=== PATIENT | female | born 1995 | race Caucasian/White ===

== ENCOUNTER → 2020-01-24 08:15 | Outpatient (CLI) | payer OTHER, SELFPAY ==
[2020-01-24 09:43] LABS: HCG,Quantitative 32946 mIU/ml (0-5.42)
== END ==
PROVIDERS: Visit Provider Nurse Practitioner Obstetrics & Gynecology
DX: Z34.90 Encounter for supervision of normal pregnancy, unspecified, unspecified trimester (principal)
CPT/HCPCS: 36415; 84702

== ENCOUNTER → 2020-02-04 15:30 | Outpatient (CLI) | payer OTHER, SELFPAY ==
[2020-02-04 15:56] LABS: Basophils # 0.1 K/mm3 (0-0.2); Basophils % 0.7 % (0.1-2.0); Eosinophils # 0.1 K/mm3 (0.0-0.4); Eosinophils % 1.9 % (0.1-12.0); Hematocrit 39.8 % (37.0-47.0); Hemoglobin 13.1 g/dL (12.2-16.2); Lymphocytes # 2.1 K/mm3 (0.7-4.5); Lymphocytes % 31.5 % (10-50); Mean Corpuscular HGB Conc 32.8 g/dL (31.8-35.4); Mean Corpuscular Hemoglobin 29.2 pg (27.0-31.2); Mean Platelet Volume 8.2 fl (7.4-10.4); Monocytes # 0.4 K/mm3 (0.1-1.0); Monocytes % 6.4 % (1.7-9.3); Neutrophils # 3.9 K/mm3 (1.8-7.8); Neutrophils % 59.5 % (37.0-80.0); Platelet Count 245 K/mm3 (142-424); Red Blood Count 4.48 M/mm3 (4.20-5.40); Red Cell Distribution Width 14.9 % (11.5-17.5); White Blood Count 6.6 K/mm3 (4.8-10.8)
[2020-02-06 04:52] LABS: HIV Screen 4th Generation wRfx Non Reactive (Non Reactive)
[2020-02-06 12:56] LABS: Hepatitis B Surface Antigen Negative (Negative); Hepatitis C Antibody <0.1 s/co ratio (0.0-0.9); Rapid Plasma Reagin Ab Titer Non Reactive (NonRea<1:1)
== END ==
PROVIDERS: Visit Provider Nurse Practitioner Obstetrics & Gynecology
DX: Z34.90 Encounter for supervision of normal pregnancy, unspecified, unspecified trimester (principal)
CPT/HCPCS: 36415; 85025; 86592; 86703; 86762; 86850; 87340; 87380; G0432

== ENCOUNTER → 2020-02-13 13:43 | Outpatient (CLI) | payer OTHER, SELFPAY ==
--- NOTE | 2020-02-13 13:52 | US_ITS ---
PROCEDURE: US OB TRANSVAGINAL CLINICAL INDICATION: for dates Early Ob ultrasound COMPARISON: PTV US PELVIS-TRANSVAGINAL ONLY from 07/25/2017 FINDINGS: An intrauterine gestational sac is present with a pole with a crown-rump length of 1.9cm correlating to gestational age of 8weeks 4days. heart tones are present with an FHR of 170bpm. Yolk sac is noted. Unremarkable adnexa IMPRESSION: Live IUP at 8 weeks 4 days Estimated due date by Ultrasound is 09/20/2020 Dictated by: Anup Key MD 02/13/2020 17:09 Electronically signed by Anup Key MD in [place] 02/13/2020 17:09
== END ==
PROVIDERS: PCP Family Medicine; Visit Provider Nurse Practitioner Obstetrics & Gynecology
DX: Z34.90 Encounter for supervision of normal pregnancy, unspecified, unspecified trimester (principal)
CPT/HCPCS: 76817

== ENCOUNTER → 2020-05-06 14:22 | Outpatient (CLI) | payer OTHER, SELFPAY ==
--- NOTE | 2020-05-06 14:25 | US_ITS ---
PROCEDURE: US OB /MATERNAL DETAIL CLINICAL INDICATION: 20 week gestation Anatomy exam COMPARISON: US US OB TRANSVAGINAL from 02/13/2020 FINDINGS: There is a single live fetus which is in variable presentation and ended up on the last images to be in breech presentation.. The cervix is closed and measures 3.9 cm transabdominal. The placenta is anterior and low lying. No definite previa. Complete survey performed and was unremarkable on the submitted images as in PACS. No discrete anomalies identified on survey imaging by technologist. Active fetus. Three-vessel cord with satisfactory umbilical cord insertion. 4- chamber heart noted. Survey of brain & ventricles Unremarkable. Face and neck survey unremarkable. Diaphragm and chest views unremarkable. Abdomen: Both kidneys noted. Minimal pyelectasisof the renal collecting system at 4 and 6 mm.. Stomach noted and satisfactory. Spine: Survey of the spine satisfactory with no anomalies identified nor imaged. Both arms and legs noted. Amniotic Fluid: Adequate. Maternal adnexa: No significant findings. Measurements: Average ultrasound age 20weeks 4days. Gestational Age 20weeks 3days Estimated due date by ultrasound age 1209/19/2020. Estimated weight 377g BPD = 20weeks 4days OFD = 20weeks 5days HC = 19weeks 6days AC = 21weeks 2days FL = 20weeks 4days Growth Percentile= 65Percent% Heart Rate = 138bpm Cerebellum = 20weeks Humerus = 20weeks 6days HC/AC is 1.07 CI is 0.78 FL/BPD is 0.7 FL/AC is 0.21 IMPRESSION: Live IUP with an average ultrasound age 20 weeks and 4 days. There is mild renal pyelectasis. Consider follow-up to confirm stability or resolution. Dictated b Anup Key MD 05/07/2020 11:03 Anup Key MD in [place] 05/07/2020 11:03
== END ==
PROVIDERS: PCP Family Medicine; Visit Provider Nurse Practitioner Obstetrics & Gynecology
DX: Z3A.20 20 weeks gestation of pregnancy (principal)
CPT/HCPCS: 76811

== ENCOUNTER → 2020-06-11 09:20 | Outpatient (CLI) | payer OTHER, SELFPAY ==
[2020-06-11 11:35] LABS: Fetal Fibronectin (Rapid) Negative (Negative)
== END ==
PROVIDERS: Visit Provider Nurse Practitioner Obstetrics & Gynecology
DX: Z34.90 Encounter for supervision of normal pregnancy, unspecified, unspecified trimester (principal)
CPT/HCPCS: 82731

== ENCOUNTER 2020-06-16 07:35 | Outpatient (CLI) | payer OTHER, SELFPAY ==
[2020-06-16 09:12] LABS: Glucose,Fasting 91 mg/dl (74-100)
[2020-06-16 10:31] LABS: Glucose 1 Hour 98 mg/dL (74-100)
[2020-06-16 10:55] VITALS: BP 109/62; PULSE 102; RESP 20; TEMP 36.3; O2SAT 100
== END 2020-06-16 11:11 | disposition home or self-care (01) ==
LOC: LAB 08:11 → INF 10:44
PROVIDERS: Visit Provider Nurse Practitioner Obstetrics & Gynecology
DX: O26.899 Other specified pregnancy related conditions, unspecified trimester (principal); Z34.90 Encounter for supervision of normal pregnancy, unspecified, unspecified trimester; Z67.91 Unspecified blood type, Rh negative
CPT/HCPCS: 36415; 82951; 86850; 96372; J2790

== ENCOUNTER 2020-06-26 09:45 | Outpatient (CLI) | payer OTHER, SELFPAY ==
[2020-06-26 10:00] VITALS: BMI 32.5
[2020-06-26 10:19] VITALS: BP 103/63; PULSE 118; RESP 18; TEMP 36.3; O2SAT 100; BMI 32.5
[2020-06-26 11:31] LABS: Microscopic, Urine URINE MICROSCOPIC (MICROSCOPIC)
[2020-06-26 11:43] LABS: Appearance,Urine SL CLOUDY (Clear); Blood, Urine Negative (Negative); Color,Urine DK YELLOW (Yellow); Glucose,Urine (UA) Negative (Negative); Ketones,Urine 3+ (Negative); Leukocyte Esterase,Urine Negative (Negative); Nitrate,Urine Negative (Negative); Protein,Urine 2+ (Negative); Specific Gravity, Urine >= 1.030 (1.005-1.030)
[2020-06-26 11:46] LABS: Bilirubin,Urine Negative (Negative)
[2020-06-26 11:49] LABS: Benzodiazepines Screen,Urine Negative ng/ml (<200)
[2020-06-26 11:50] LABS: Amphetamine/Metha Screen,Urine Negative ng/ml (<1000)
[2020-06-26 11:51] LABS: Barbiturates Screen,Urine Negative ng/ml (<200); Cannabinoid Screen,Urine Negative ng/ml (<50)
[2020-06-26 11:52] LABS: Cocaine Screen,Urine Negative ng/ml (<300); Methadone Screen,Urine Negative ng/ml (<300)
[2020-06-26 11:53] LABS: Opiate Screen,Urine Negative ng/ml (<300)
[2020-06-26 11:54] LABS: Phencyclidine Screen,Urine Negative ng/ml (<25)
[2020-06-26 12:09] LABS: Bacteria,Urine 1+ /lpf; RBC,Urine Occasional #/hpf (0-3)
[2020-06-26 12:10] LABS: Calcium Oxalate Crystals,Urine 1+ /lpf
== END 2020-06-26 12:54 | disposition home or self-care (01) ==
LOC: OBOUT 09:49 → OB 09:50
PROVIDERS: PCP Family Medicine; Visit Provider Nurse Practitioner Obstetrics & Gynecology
DX: O47.02 False labor before 37 completed weeks of gestation, second trimester (principal); Z3A.27 27 weeks gestation of pregnancy
CPT/HCPCS: 59025; 80305; 81001; 96365; G0463; J2405

== ENCOUNTER 2020-08-09 19:54 | Observation (INO) | payer OTHER, SELFPAY ==
[2020-08-09 18:32] VITALS: BP 104/72; PULSE 97; RESP 18; TEMP 36.9; O2SAT 98; BMI 33.5
[2020-08-09 18:39] LABS: Microscopic, Urine URINE MICROSCOPIC (MICROSCOPIC)
[2020-08-09 19:19] LABS: Appearance,Urine CLEAR (Clear); Bilirubin,Urine Negative (Negative); Blood, Urine Negative (Negative); Color,Urine YELLOW (Yellow); Glucose,Urine (UA) Negative (Negative); Ketones,Urine Negative (Negative); Leukocyte Esterase,Urine 1+ (Negative); Nitrate,Urine Negative (Negative); Protein,Urine Negative (Negative); Specific Gravity, Urine 1.015 (1.005-1.030); Urobilinogen,Urine 0.2 EU/dl (0.2)
[2020-08-09 19:33] LABS: Barbiturates Screen,Urine Negative ng/ml (<200)
[2020-08-09 19:34] LABS: Benzodiazepines Screen,Urine Negative ng/ml (<200)
[2020-08-09 19:35] LABS: Cannabinoid Screen,Urine Negative ng/ml (<50)
[2020-08-09 19:36] LABS: Cocaine Screen,Urine Negative ng/ml (<300); Methadone Screen,Urine Negative ng/ml (<300)
[2020-08-09 19:37] LABS: Opiate Screen,Urine Negative ng/ml (<300); Phencyclidine Screen,Urine Negative ng/ml (<25)
[2020-08-09 19:40] LABS: Amphetamine/Metha Screen,Urine Negative ng/ml (<1000)
[2020-08-09 20:42] LABS: Basophils % 0.2 % (0.1-2.0); Eosinophils # 0.2 K/mm3 (0.0-0.4); Hematocrit 39.5 % (37.0-47.0); Hemoglobin 13.4 g/dL (12.2-16.2); Lymphocytes # 2.8 K/mm3 (0.7-4.5); Lymphocytes % 25.8 % (10-50); Mean Corpuscular HGB Conc 33.9 g/dL (31.8-35.4); Mean Corpuscular Volume 91.5 fl (81-99); Monocytes # 0.5 K/mm3 (0.1-1.0); Monocytes % 4.6 % (1.7-9.3); Neutrophils # 7.2 K/mm3 (1.8-7.8); Neutrophils % 67.4 % (37.0-80.0); Platelet Count 278 K/mm3 (142-424); Red Blood Count 4.32 M/mm3 (4.20-5.40); Red Cell Distribution Width 15.4 % (11.5-17.5); White Blood Count 10.7 K/mm3 (4.8-10.8)
[2020-08-09 21:05] LABS: Chloride 104 mmol/L (98-107); Sodium 134 mmol/L (136-145)
[2020-08-09 21:06] LABS: Potassium 4.2 mmoL/L (3.5-5.1)
[2020-08-09 21:08] LABS: Blood Urea Nitrogen 5 mg/dl (7-17); Creatinine Clearance Estimated 194 mL/min (50-200); Estimated Glomerular Filt Rate 122 ml/min (>60); GFR (African American) 147 ML/MIN (>60)
[2020-08-09 21:09] LABS: Anion Gap 10.2 mEq/L (5-15); Calcium 9.4 mg/dl (8.4-10.2); Carbon Dioxide 24 mmol/L (22.0-30.0); Glucose 79 mg/dl (74-100)
[2020-08-09 21:26] LABS: Coronavirus 19 IgG Antibody Negative (Negative); Coronavirus 19 IgM Antibody Negative (Negative)
[2020-08-10] VITALS: BP 107/65; PULSE 94; RESP 18; TEMP 36.6; O2SAT 96
[2020-08-10 04:00] VITALS: BP 110/66; PULSE 89; RESP 18; TEMP 36.7; O2SAT 97
--- NOTE | 2020-08-10 07:00 | US_ITS ---
PROCEDURE: US OB FOLLOW UP CLINICAL INDICATION: Low lying placenta, patient experiencing vag bleed COMPARISON: US US OB /MATERNAL DETAIL from 05/06/2020 FINDINGS: There is a single live fetus which is in cephalic presentation. Cervix is closed and measures 38 mm. The placenta is anterior and grade 1. No evidence of previa or abruption. Average ultrasound age is 35 weeks 1 day with an estimated weight of 2515 g which is 64th percentile. BPD 36 weeks 0 days, OFD 34 weeks 0 days, HC 34 weeks 4 days, AC 34 weeks 4 days, FL 35 weeks 1 day. All parameters correlate. SOTO is normal at 13 cm. IMPRESSION: Live IUP at 35 weeks 1 day with an estimated weight of 2515 g which is 64th percentile. Normal SOTO Anterior grade 1 placenta. No previa or abruption. Dictated by: Anup Key MD 08/10/2020 19:38 Anup Key MD in [place] 08/10/2020 19:38
[2020-08-10 08:03] VITALS: BP 101/64; PULSE 88; RESP 18; TEMP 36.8; O2SAT 96
--- NOTE | 2020-08-10 08:50 | HMH.OBAPHP ---
OB - H&P: HPI Antepartum - History of Present Illness Chief complaint: Pelvic pain, vaginal bleeding Comments: She is a 24-year-old 1 para 0 at 34 weeks gestational age. She was having low abdominal pain, back pain and pressure. She came into labor and delivery. She was examined and at that time had some vaginal bleeding. She subsequently had an approximately baseball sized area of bleeding on a check. She now just has a small amount of blood when she wipes. She still continues to have some low back pain as well as some lower abdominal pain. Her cervix was long and closed. We are awaiting an ultrasound this morning. She has received 1 dose of Celestone and will repeat this today. She is not having any contractions on the monitor. She has a reactive nonstress test. - History of Present Criteria for establishing EDC:: LMP confirmed by 1st trimester US care: good care Ultrasounds: normal 1st trimester US, normal mid trimester US Medical complications: none H History I have reviewed the patient's past medical history: Yes Medical History: Denies:: Anxiety, Depression, Migraine, Seizures *Have you ever received a pneumonia vaccine?: No *Have you received a flu vaccine this season?: No Other Medical History: Reports: Hypothyroidism Laterality Cases: Bilateral: Tonsillectomy Other Surgeries: Yes: Appendectomy, Cholecystectomy, Thyroidectomy. No: Amputation: No Fractures: No - *Social History Smoking Status: Never smoker Alcohol Intake: never Alcohol Intake Frequency:: other Substance Use Type: denies use *Occupational Status:: employed *Travel in the last 8 weeks: None - Psychiatric History Pschychiatric History:: Denies:: Anxiety, Depression Family Hx:: Cancer, Diabetes, Hypertension, Thyroid Disorder, Asthma Para: 0 Review of Systems - Review of Systems Review of systems:: pertinent systems reviewed and negative unless documented below Meds Home Medications Medication Instructions Recorded Confirmed Type prenat.vits,jenni,[id number] 1 tab PO DAILY 02/04/20 08/09/20 History Ferrous Sulfate 325 mg PO DAILY 06/16/20 08/09/20 History ondansetron 4 mg disintegrating 4 mg PO Q6H PRN #30 tab 06/30/20 08/09/20 Rx tablet Famotidine [Acid Rubber Down] 20 mg PO DAILY 11/08/20 11/08/20 History Levothyroxine Sodium [Tirosint] 150 mcg PO DAILY 08/09/20 08/09/20 History Allergies Allergy/AdvReac Type Severity Reaction Status Date / Time No Known Allergies Allergy Verified 07/28/20 09:18 OB - H&P: Exam - Physical Exam Vital signs: Temp Pulse Resp BP Pulse Ox 98.0 F 89 18 110/66 97 08/10/20 04:00 08/10/20 04:00 08/10/20 04:00 08/10/20 04:00 08/10/20 04:00 - Constitutional no acute distress - Routine HEENT Exam Head: Present: normocephalic Eye: Present: EOMI, PERRL ENT: Present: mucous membranes moist - Routine Neck Exam Present: supple, full ROM - Routine Respiratory Exam Absent: accessory muscle use (good air entry bilaterally), respiratory distress, wheezes, crackles - Routine Cardiovascular Exam Present: RRR. Absent: murmur - Routine Abdominal Exam Present: soft, normoactive bowel sounds. Absent: tenderness, distended, guarding Comments: Her abdomen was slightly tender but otherwise normal and gravid. - Routine Rectal Exam Patient deferred: visual exam, digital exam - Routine Exam Patient deferred: external exam, groin exam, perineal exam - Routine Extremities Exam Present: full ROM. Absent: cyanosis, edema - Routine Skin Exam Present: intact. Absent: cyanosis - Routine Neurological Exam Present: alert, oriented X3 - Routine Psychiatric Exam Present: normal affect OB - Results - Labs Labs: Short CBC 08/09/20 Range/Units 20:30 WBC 10.7 (4.8-10.8) K/mm3 Hgb 13.4 (12.2-16.2) g/dL Hct 39.5 (37.0-47.0) % Plt Count 278 (142-424) K/mm3 BMP 08/09/20 20:30 Sodium
[2020-08-10 12:15] VITALS: BP 115/67; PULSE 113; RESP 18; TEMP 36.7; O2SAT 98
[2020-08-10 13:41] LABS: Magnesium 1.5 mg/dl (1.6-2.3)
--- NOTE | 2020-08-10 14:41 | HMH.PHAINT ---
MEDICATION RECONCILIATION COMPLETED ON PATIENT USING EXTERNAL FILL HISTORY FROM PHARMACY AND CALLING [facility]. -JANEL ODELLD
--- NOTE | 2020-08-10 14:42 | HMH.PHAVTE ---
[facility] Pharmacy VTE Monitoring - Patient Demographics Admission date: 08/10/20 Report Date: 08/10/20 Time: 14:42 Allergies/Adverse Reactions: Patient Allergies No Known Allergies Allergy (Verified 07/28/20 09:18) Height: 1.6 m Weight: 85.729 kg Patient Problems: Current Active Problems False labor (Acute) Vaginal bleeding during , antepartum (Acute) - VTE Risk Labs: VTE Related Lab Results Hgb 13.4 g/dL (12.2-16.2) 08/09/20 20:30 Hct 39.5 % (37.0-47.0) 08/09/20 20:30 Plt Count 278 K/mm3 (142-424) 08/09/20 20:30 BUN 5 mg/dl (7-17) L 08/09/20 20:30 Creatinine 0.60 mg/dl (0.52-1.04) 08/09/20 20:30 Estimated Creat Clear 194 mL/min (50-200) 08/09/20 20:30 - Prophylaxis VTE Prophylaxis Ordered?: Yes Types of VTE Prophylaxis: TEDS Knee High Location of Applied Device: Bilateral Lower Extremeties
[2020-08-10 20:00] VITALS: BP 131/73; PULSE 104; RESP 18; TEMP 36.5; O2SAT 100
[2020-08-11 03:38] VITALS: BP 108/56; PULSE 89; RESP 18; TEMP 36.6; O2SAT 97
[2020-08-11 08:00] VITALS: BP 100/55; PULSE 89; RESP 18; TEMP 36.4; O2SAT 97
--- NOTE | 2020-08-11 08:24 | P.DS_ITS ---
General - General Admission date:: 08/09/20 Discharge date: 08/11/20 HPI - History of Present Illness History of present illness: She is a 24-year-old 1 para 0 at 34 weeks gestational age. She came in having contractions. After being examined she started having some vaginal bleeding. As result that she was admitted for observation. Hospital Course Hospital Course: She was admitted for observation and received 2 courses of steroids for lung maturity. She had some nausea and vomiting and this has settled. She had a couple of episodes of contractions but these also settled on their own. When she was examined on arrival her cervix was closed and long. She did start having some bleeding after being examined. Initially she had about a baseball size soaked area on the catrachita but now she has no further episodes of bleeding. She had an ultrasound that was essentially normal. She has no further episodes of contractions. She is eating and drinking and ambulating. She has no further episodes of nausea or vomiting. She is discharged home to follow-up with me next week. She will continue with her vitamins and iron. I given her a prescription for Zofran to take as needed for any nausea that she has. Her condition on discharge is stable and improved. Objective Vital signs: Temp Pulse Resp BP Pulse Ox 97.6 F 89 18 100/55 L 97 08/11/20 08:00 08/11/20 08:00 08/11/20 08:00 08/11/20 08:00 08/11/20 08:00 no acute distress - *Routine HEENT Exam Head: Present: normocephalic (Right) Eye: Present: EOMI, PERRL ENT: Present: mucous membranes moist Results Labs on day of discharge: Labs from last 24 hours 08/10/20 08/09/20 13:21 20:30 Magnesium 1.5 L Antibody Identification Anti-D DS: Diagnosis - Discharge Diagnosis (1) False labor Status: Acute (2) Vaginal bleeding during , antepartum Status: Acute Discharge Plan - Patient Discharge Instructions ACTIVITY: No heavy lifting DIET: continue same diet Patient Instructions: DI for Vaginal Bleeding During , How to Do Kick Counts, Preventing the Spread of Coronavirus Discharge Instructions, Antepartum Care - Follow up Plan Follow up with: Rey Yee MD [Primary Care Provider] - Disposition: Home, Self-[facility] Medications: Home Medications Medication Instructions Recorded Confirmed Type prenat.vits,jenni,anq-weqt-chasp 1 tab PO DAILY 02/04/20 08/09/20 History Ferrous Sulfate 325 mg PO DAILY 06/16/20 08/09/20 History Famotidine [Acid Reciprocating Drill Operator] 20 mg PO DAILY 08/09/20 08/09/20 History Levothyroxine Sodium [Tirosint] 300 mcg PO DAILY 08/09/20 08/10/20 History Ondansetron [Zofran 4mg ODT] 4 mg PO Q6HP PRN #30 tab 08/11/20 Rx Prescriptions/Medication Reconciliation: Continued prenat.vits,jenni,[id number]-[id number] 1 tab PO DAILY Levothyroxine Sodium [Tirosint] 300 mcg PO DAILY Famotidine [Acid Reciprocating Drill Operator] 20 mg PO DAILY Ferrous Sulfate 325 mg PO DAILY Changed Ondansetron [Zofran 4mg ODT] 4 mg PO Q6HP PRN #30 tab PRN Reason: nausea and vomiting - Problem Reconciliation Problems Reviewed?: Yes
== END 2020-08-11 10:15 | disposition home or self-care (01) ==
LOC: OBOUT 19:57 → OB 08-10 06:28
PROVIDERS: Admitting Provider Nurse Practitioner Obstetrics & Gynecology; PCP Nurse Practitioner Obstetrics & Gynecology; Visit Provider Nurse Practitioner Obstetrics & Gynecology
DX: O46.8X3 Other antepartum hemorrhage, third trimester (principal); O47.03 False labor before 37 completed weeks of gestation, third trimester; Z3A.34 34 weeks gestation of pregnancy; Z23 Encounter for immunization
CPT/HCPCS: 90471; 59025; 76816; 80048; 80305; 81001; 83735; 85025; 86328; 86850; 86870; 87086; 90686; 96372; G0378; J0595; J2405

== ENCOUNTER 2020-08-15 20:36 | Outpatient (CLI) | payer OTHER, SELFPAY ==
[2020-08-15 21:00] VITALS: BMI 32.8
[2020-08-15 21:30] VITALS: BP 108/72; PULSE 94; RESP 18; TEMP 37.2; O2SAT 95
[2020-08-15 21:31] LABS: Microscopic, Urine URINE MICROSCOPIC (MICROSCOPIC)
[2020-08-15 21:32] VITALS: BMI 32.8
[2020-08-15 21:33] LABS: Appearance,Urine CLEAR (Clear); Bilirubin,Urine Negative (Negative); Blood, Urine Negative (Negative); Color,Urine YELLOW (Yellow); Glucose,Urine (UA) Negative (Negative); Ketones,Urine Negative (Negative); Leukocyte Esterase,Urine Negative (Negative); Nitrate,Urine Negative (Negative); PH,Urine 6.5 (5.0-8.5); Protein,Urine Negative (Negative); Urobilinogen,Urine 0.2 EU/dl (0.2)
[2020-08-15 21:46] LABS: Amphetamine/Metha Screen,Urine Negative ng/ml (<1000); Barbiturates Screen,Urine Negative ng/ml (<200)
[2020-08-15 21:47] LABS: Benzodiazepines Screen,Urine Negative ng/ml (<200)
[2020-08-15 21:48] LABS: Cannabinoid Screen,Urine Negative ng/ml (<50); Cocaine Screen,Urine Negative ng/ml (<300)
[2020-08-15 21:49] LABS: Methadone Screen,Urine Negative ng/ml (<300)
[2020-08-15 21:50] LABS: Opiate Screen,Urine Negative ng/ml (<300); Phencyclidine Screen,Urine Negative ng/ml (<25)
[2020-08-15 21:50] LABS: Fetal Membrane Rupture (Rapid) Negative (Negative)
[2020-08-15 22:38] LABS: Coronavirus 19 IgG Antibody Negative (Negative); Coronavirus 19 IgM Antibody Negative (Negative)
== END 2020-08-15 22:48 | disposition home or self-care (01) ==
LOC: OBOUT 20:38 → OB 20:56
PROVIDERS: PCP Family Medicine; Visit Provider Obstetrics & Gynecology
DX: O36.8130 Decreased fetal movements, third trimester, not applicable or unspecified (principal); Z3A.34 34 weeks gestation of pregnancy; R10.9 Unspecified abdominal pain
CPT/HCPCS: 36415; 59025; 80305; 81001; 84112; 86328; G0463

== ENCOUNTER → 2020-08-17 17:10 | Outpatient (CLI) | payer OTHER, SELFPAY | PROVIDERS: Visit Provider Nurse Practitioner Obstetrics & Gynecology | DX: Z34.90 Encounter for supervision of normal pregnancy, unspecified, unspecified trimester (principal) | CPT/HCPCS: 86403 ==

== ENCOUNTER 2020-08-22 20:38 | Outpatient (CLI) | payer OTHER, SELFPAY ==
[2020-08-22 20:56] VITALS: BMI 33.8
[2020-08-22 21:21] LABS: Microscopic, Urine URINE MICROSCOPIC (MICROSCOPIC)
[2020-08-22 21:24] LABS: Appearance,Urine SL CLOUDY (Clear); Bilirubin,Urine Negative (Negative); Blood, Urine Negative (Negative); Color,Urine YELLOW (Yellow); Glucose,Urine (UA) Negative (Negative); Ketones,Urine Negative (Negative); Leukocyte Esterase,Urine TRACE (Negative); Nitrate,Urine Negative (Negative); Protein,Urine Negative (Negative); Urobilinogen,Urine 0.2 EU/dl (0.2)
[2020-08-22 21:28] VITALS: BP 99/65; PULSE 85; RESP 18; TEMP 36.9; O2SAT 95; BMI 33.8
[2020-08-22 21:35] LABS: Benzodiazepines Screen,Urine Negative ng/ml (<200)
[2020-08-22 21:36] LABS: Amphetamine/Metha Screen,Urine Negative ng/ml (<1000); Barbiturates Screen,Urine Negative ng/ml (<200)
[2020-08-22 21:37] LABS: Cannabinoid Screen,Urine Negative ng/ml (<50)
[2020-08-22 21:38] LABS: Cocaine Screen,Urine Negative ng/ml (<300); Methadone Screen,Urine Negative ng/ml (<300)
[2020-08-22 21:39] LABS: Opiate Screen,Urine Negative ng/ml (<300); Phencyclidine Screen,Urine Negative ng/ml (<25)
== END 2020-08-23 | disposition home or self-care (01) ==
LOC: OBOUT 20:39 → OB 20:40
PROVIDERS: PCP Family Medicine; Visit Provider Nurse Practitioner Obstetrics & Gynecology
DX: O26.893 Other specified pregnancy related conditions, third trimester (principal); Z3A.35 35 weeks gestation of pregnancy; R10.2 Pelvic and perineal pain; R11.2 Nausea with vomiting, unspecified
CPT/HCPCS: 59025; 80305; 81001; 96360; 96367; 96372; J2405

== ENCOUNTER 2020-08-30 20:48 | Outpatient (CLI) | payer OTHER, SELFPAY ==
[2020-08-30 20:59] VITALS: BMI 34.2
[2020-08-30 21:16] VITALS: BP 107/75; PULSE 84; RESP 18; TEMP 36.8; O2SAT 98; BMI 34.2
[2020-08-30 21:25] LABS: Microscopic, Urine URINE MICROSCOPIC (MICROSCOPIC)
[2020-08-30 21:55] LABS: Appearance,Urine CLEAR (Clear); Bilirubin,Urine Negative (Negative); Blood, Urine Negative (Negative); Color,Urine YELLOW (Yellow); Glucose,Urine (UA) Negative (Negative); Ketones,Urine Negative (Negative); Leukocyte Esterase,Urine Negative (Negative); Nitrate,Urine Negative (Negative); Protein,Urine Negative (Negative); Specific Gravity, Urine 1.015 (1.005-1.030); Urobilinogen,Urine 0.2 EU/dl (0.2)
[2020-08-30 22:00] LABS: WBC,Urine Occasional #/hpf (0-3)
[2020-08-30 22:06] LABS: Fetal Membrane Rupture (Rapid) Negative (Negative)
[2020-08-30 22:08] LABS: Amphetamine/Metha Screen,Urine Negative ng/ml (<1000); Benzodiazepines Screen,Urine Negative ng/ml (<200)
[2020-08-30 22:09] LABS: Barbiturates Screen,Urine Negative ng/ml (<200)
[2020-08-30 22:10] LABS: Cannabinoid Screen,Urine Negative ng/ml (<50); Cocaine Screen,Urine Negative ng/ml (<300)
[2020-08-30 22:11] LABS: Methadone Screen,Urine Negative ng/ml (<300)
[2020-08-30 22:12] LABS: Opiate Screen,Urine Negative ng/ml (<300); Phencyclidine Screen,Urine Negative ng/ml (<25)
== END 2020-08-30 22:10 | disposition home or self-care (01) ==
LOC: OBOUT 20:50 → OB 20:50
PROVIDERS: PCP Family Medicine; Visit Provider Obstetrics & Gynecology
DX: O60.03 Preterm labor without delivery, third trimester (principal); Z3A.37 37 weeks gestation of pregnancy
CPT/HCPCS: 59025; 80305; 81001; 84112; G0463

== ENCOUNTER → 2020-09-07 17:57 | Outpatient (CLI) | payer OTHER, SELFPAY ==
[2020-09-07 17:59] LABS: Microscopic, Urine URINE MICROSCOPIC (MICROSCOPIC)
[2020-09-07 18:51] LABS: Appearance,Urine CLEAR (Clear); Bilirubin,Urine Negative (Negative); Blood, Urine Negative (Negative); Color,Urine YELLOW (Yellow); Glucose,Urine (UA) Negative (Negative); Ketones,Urine Negative (Negative); Leukocyte Esterase,Urine 1+ (Negative); Nitrate,Urine Negative (Negative); PH,Urine 6.5 (5.0-8.5); Protein,Urine Negative (Negative); Specific Gravity, Urine 1.015 (1.005-1.030); Urobilinogen,Urine 0.2 EU/dl (0.2)
[2020-09-07 19:28] LABS: Calcium Oxalate Crystals,Urine 3+ /lpf
== END ==
PROVIDERS: Visit Provider Nurse Practitioner Obstetrics & Gynecology
DX: Z34.90 Encounter for supervision of normal pregnancy, unspecified, unspecified trimester (principal)
CPT/HCPCS: 81001; 87086

== ENCOUNTER 2020-09-09 14:25 | Outpatient (CLI) | payer OTHER, SELFPAY ==
[2020-09-09 14:33] VITALS: BMI 35.4
[2020-09-09 15:11] LABS: Microscopic, Urine URINE MICROSCOPIC (MICROSCOPIC)
[2020-09-09 15:13] LABS: Appearance,Urine CLEAR (Clear); Bilirubin,Urine Negative (Negative); Blood, Urine 1+ (Negative); Color,Urine YELLOW (Yellow); Glucose,Urine (UA) Negative (Negative); Ketones,Urine Negative (Negative); Leukocyte Esterase,Urine Negative (Negative); Nitrate,Urine Negative (Negative); Protein,Urine Negative (Negative); Specific Gravity, Urine <= 1.005 (1.005-1.030); Urobilinogen,Urine 0.2 EU/dl (0.2)
[2020-09-09 15:24] LABS: Amphetamine/Metha Screen,Urine Negative ng/ml (<1000)
[2020-09-09 15:25] LABS: Barbiturates Screen,Urine Negative ng/ml (<200)
[2020-09-09 15:26] LABS: Benzodiazepines Screen,Urine Negative ng/ml (<200); Cannabinoid Screen,Urine Negative ng/ml (<50)
[2020-09-09 15:27] LABS: Cocaine Screen,Urine Negative ng/ml (<300); Methadone Screen,Urine Negative ng/ml (<300)
[2020-09-09 15:28] LABS: Phencyclidine Screen,Urine Negative ng/ml (<25)
[2020-09-09 15:29] LABS: Opiate Screen,Urine Negative ng/ml (<300)
--- NOTE | 2020-09-09 15:58 | US_ITS ---
PROCEDURE: US OB BIOPHYSICAL PROFILE CLINICAL INDICATION: md order, abdominal pain with intermitten pain, mid abdomen with - TECHNIQUE: Transabdominal imaging FINDINGS: The following parameters are obtained: Average ultrasound age is Average 38weeks estimated due date by ultrasound is 09/23/2020. Estimated weight is 3372g. This is 55 percentile. BPD: 38 weeks 0 days OFD: 38 weeks 0 days HC: 37 weeks 0 days AC: 38 weeks 2 days FL: 38 weeks 3 days heart rate: 149 bpm. HC/AC: 0.95 Cephalic index: 0.83 FL/BPD: 0.80 FL/AC: 0.22 Amniotic fluid index: 15 cm A single live fetus is present which is in cephalic presentation. The cervix is closed measuring 4 cm. The placenta is anterior and grade 2. Biophysical profile is 8 of 8 IMPRESSION: Live IUP which is in cephalic position with an average ultrasound age of 38 weeks 0 days. Biophysical profile 8 of 8. EFW 3372 g which is 55 percentile. SOTO 15 cm Dictated by: Anup Key MD 09/10/2020 18:25 Anup Key MD in [place] 09/10/2020 18:25
[2020-09-09 16:34] LABS: Bacteria,Urine 3+ /lpf
--- NOTE | 2020-09-09 16:39 | P.PN_ITS ---
Internal Medicine - PN: Subj *Date: 09/09/20 *Time: 16:39 Interval history: She complains of contractions since 5 AM. They come and go. She also complains of some decreased movement. She just had 2 contractions on the monitor. The nonstress test is reactive. An ultrasound for growth and biophysical profile is pending. Exam Vital signs and Labs for Last 24 Hours: Laboratory Results - last 24 hr 09/09/20 14:45: Urine Color Yellow, Urine Appearance Clear, Urine pH 6.0, Ur Specific [place] <= 1.005, Urine Protein Negative, Urine Glucose (UA) Negative, Urine Ketones Negative, Urine Blood 1+, Urine Nitrate Negative, Urine Bilirubin Negative, Urine Urobilinogen 0.2, Ur Leukocyte Esterase Negative, Urine RBC None, Urine WBC 3-5, Ur Squamous Epith Cells 5-10, Urine Bacteria 3+ 09/09/20 14:45: Urine Opiates Screen Negative, Urine Methadone Screen Negative, Ur Barbituates Screen Negative, Ur Phencyclidine Scrn Negative, Ur Amphetamines Screen Negative, U Benzodiazepines Scrn Negative, Urine Cocaine Screen Negative, U Marijuana (THC) Screen Negative I & O for Last 24 hours: Intake & Output 09/07/20 09/08/20 09/09/20 09/10/20 11:59 11:59 11:59 11:59 Weight 194 lb - Constitutional no acute distress - *Routine HEENT Exam Head: Present: normocephalic Eye: Present: EOMI, PERRL ENT: Present: mucous membranes moist Assessment and Plan (1) False labor Status: Acute Category: Medical Code(s): O47.9 - False labor, unspecified - Assessment and plan all Dx Assessment and Plan for all problems:: She had a few contractions starting from this morning. She just had a couple of contractions on the monitor. Nonstress test is reactive. Her cervix is not c hanged remains at 2 cm 50% Station -2. We plan to deliver her in about 5 days time. We are awaiting the results of her ultrasound. We will send her home and follow-up with her in 5 days for delivery.
== END 2020-09-09 15:55 | disposition home or self-care (01) ==
LOC: OBOUT 14:27 → OB 14:27
PROVIDERS: PCP Family Medicine; Visit Provider Nurse Practitioner Obstetrics & Gynecology
DX: O36.8130 Decreased fetal movements, third trimester, not applicable or unspecified (principal); Z3A.38 38 weeks gestation of pregnancy
CPT/HCPCS: 76816; 76819; 80305; 81001; 87086; G0463

== ENCOUNTER 2020-09-13 16:06 | Inpatient (IN) | payer OTHER, SELFPAY ==
[2020-09-13 16:16] VITALS: BMI 35.6
[2020-09-13 16:51] VITALS: BP 110/76; PULSE 101; RESP 20; TEMP 36.7; O2SAT 97; BMI 35.6
[2020-09-13 17:04] LABS: Microscopic, Urine URINE MICROSCOPIC (MICROSCOPIC)
[2020-09-13 17:09] LABS: Appearance,Urine CLEAR (Clear); Bilirubin,Urine Negative (Negative); Blood, Urine Negative (Negative); Color,Urine YELLOW (Yellow); Glucose,Urine (UA) Negative (Negative); Ketones,Urine Negative (Negative); Leukocyte Esterase,Urine TRACE (Negative); Nitrate,Urine Negative (Negative); PH,Urine 6.5 (5.0-8.5); Protein,Urine Negative (Negative); Urobilinogen,Urine 0.2 EU/dl (0.2)
[2020-09-13 17:13] LABS: Basophils % 0.3 % (0.1-2.0); Eosinophils # 0.1 K/mm3 (0.0-0.4); Eosinophils % 1.1 % (0.1-12.0); Hematocrit 40.8 % (37.0-47.0); Hemoglobin 13.9 g/dL (12.2-16.2); Lymphocytes # 2.6 K/mm3 (0.7-4.5); Lymphocytes % 27.6 % (10-50); Mean Corpuscular HGB Conc 34.2 g/dL (31.8-35.4); Mean Corpuscular Hemoglobin 31.7 pg (27.0-31.2); Mean Corpuscular Volume 92.9 fl (81-99); Mean Platelet Volume 8.7 fl (7.4-10.4); Monocytes # 0.7 K/mm3 (0.1-1.0); Monocytes % 6.8 % (1.7-9.3); Neutrophils # 6.1 K/mm3 (1.8-7.8); Neutrophils % 64.1 % (37.0-80.0); Platelet Count 229 K/mm3 (142-424); Red Blood Count 4.39 M/mm3 (4.20-5.40); Red Cell Distribution Width 16.2 % (11.5-17.5); White Blood Count 9.5 K/mm3 (4.8-10.8)
[2020-09-13 17:18] LABS: Squamous Epithelial Cell,Urine Occasional #/hpf (0-5); WBC,Urine Occasional #/hpf (0-3)
[2020-09-13 17:20] LABS: Amphetamine/Metha Screen,Urine Negative ng/ml (<1000)
[2020-09-13 17:21] LABS: Barbiturates Screen,Urine Negative ng/ml (<200)
[2020-09-13 17:22] LABS: Benzodiazepines Screen,Urine Negative ng/ml (<200); Cannabinoid Screen,Urine Negative ng/ml (<50)
[2020-09-13 17:23] LABS: Cocaine Screen,Urine Negative ng/ml (<300); Methadone Screen,Urine Negative ng/ml (<300)
[2020-09-13 17:24] LABS: Opiate Screen,Urine Negative ng/ml (<300)
[2020-09-13 17:25] LABS: Phencyclidine Screen,Urine Negative ng/ml (<25)
[2020-09-13 17:35] LABS: Coronavirus 19 IgG Antibody Negative (Negative); Coronavirus 19 IgM Antibody Negative (Negative)
[2020-09-13 20:30] VITALS: BP 110/74; PULSE 79; RESP 17; TEMP 36.6; O2SAT 97
[2020-09-14 04:00] VITALS: BP 113/76; PULSE 97; RESP 16; TEMP 36.7; O2SAT 98
--- NOTE | 2020-09-14 07:35 | HMH.PHAINT ---
MEDICATION RECONCILIATION COMPLETED ON PATIENT USING EXTERNAL FILL HISTORY FROM PHARMACY. -SHANTA KUMAR, JANELD
[2020-09-14 08:23] VITALS: BP 108/71; PULSE 93; RESP 20; TEMP 36.7; O2SAT 96
--- NOTE | 2020-09-14 09:52 | HMH.ANESCL ---
[facility] Anesthesia Checklist - Patient Identification Patient Identification: Arm Band - Structural Data Admitted From: Inpatient Planned Operative Procedure/s: epidural Consent for Planned Operative Procedure(s) Verified: Yes Verified Documents: History and Physical - NPO Status Verified Time NPO: 00:00 - Chart Verification Results Verified: CBC, BMP - Additional verifications Patient : No Anesthesia Reactions: No Hx Blood Transfusions: No Blood Transfusion Reaction: No Cephalosporin Allergy: No Previous Colonoscopy: No - Cardiovascular Assessment Heart Sounds: S1 & S2 Pulse Strength: Baseline Pulse Rhythm: Regular Peripheral Edema: No - Airway Assessment C-Spine Mobility Assessed: Yes TMJ Mobility Assessed: Yes Dentition: Good Dentition - Neurological Assessment Level of Consciousness: Awake, Alert, Appropriate Hx Seizures: No Numbness or tingling in extremities: No - Anesthesia Plan Anesthesia Risk discussed: Yes Anesthesia Plan: Verified ASA Class: II Anesthesia Type: Epidural [facility] History I have reviewed the patient's past medical history: Yes Medical History: Denies:: Anxiety, Depression, Migraine, Seizures *Have you ever received a pneumonia vaccine?: No *Have you received a flu vaccine this season?: Yes Other Medical History: Reports: Hypothyroidism Anesthesia experience/problems:: none Laterality Cases: Bilateral: Tonsillectomy Other Surgeries: Yes: Appendectomy, Cholecystectomy, Thyroidectomy. No: Amputation: No Fractures: No - *Social History Smoking Status: Never smoker Alcohol Intake: never Alcohol Intake Frequency:: other Substance Use Type: denies use *Occupational Status:: employed *Travel in the last 8 weeks: None - Psychiatric History Pschychiatric History:: Denies:: Anxiety, Depression Family Hx:: Cancer, Diabetes, Hypertension, Thyroid Disorder, Asthma Para: 0
--- NOTE | 2020-09-14 10:06 | HMH.LABNOT ---
Labor Note - Subjective: Date: 09/14/20 Time: 07:50 regular contraction - Objective: NST:: Reactive Contractions:: every 2-3 minutes Cervical Dilation:: 2-3 Effacement:: 75% Station: -2 Membranes: artificially ruptured - Fetus: Monitoring?: Yes monitoring type:: External - Assessment: Labor progressing?: Yes Cephalopelvic disproportion?: No Patient Problems: All Active Problems False labor (Acute) Vaginal bleeding during , antepartum (Acute) Rh negative status during (Acute) (Acute) Annual physical exam (Acute) - Plan: Anesthesia for epidural?: Yes Continue to labor down?: Yes Plan for ?: No Continue to monitor?: Yes Start pushing?: No Comment:: I ruptured her membranes and there was clear fluid.
--- NOTE | 2020-09-14 10:10 | HMH.OBAPHP ---
OB - H&P: HPI Antepartum - History of Present Illness Chief complaint: Term , decreased movement History of present illness: She is a 24-year-old 1 para 0 at 39+2 weeks gestational age. She has had some decreased movement over the last week and as a result of that we elected to induce her labor at term. - History of Present Criteria for establishing EDC:: LMP confirmed by 1st trimester US care: good care Ultrasounds: normal 1st trimester US, normal mid trimester US Obstetrical complications: none Medical complications: none [facility] History I have reviewed the patient's past medical history: Yes Medical History: Denies:: Anxiety, Depression, Migraine, Seizures *Have you ever received a pneumonia vaccine?: No *Have you received a flu vaccine this season?: Yes Other Medical History: Reports: Hypothyroidism. Denies: Blood Transfusion Reaction Anesthesia experience/problems:: none Laterality Cases: Bilateral: Tonsillectomy Other Surgeries: Yes: Appendectomy, Cholecystectomy, Thyroidectomy. No: Amputation: No Fractures: No - *Social History Smoking Status: Never smoker Alcohol Intake: never Alcohol Intake Frequency:: other Substance Use Type: denies use *Occupational Status:: employed *Travel in the last 8 weeks: None - Psychiatric History Pschychiatric History:: Denies:: Anxiety, Depression Family Hx:: Cancer, Diabetes, Hypertension, Thyroid Disorder, Asthma Para: 0 Review of Systems - Review of Systems Review of systems:: pertinent systems reviewed and negative unless documented below Meds Home Medications Medication Instructions Recorded Confirmed Type prenat.vits,jenni,iui-ehlr-mepcx 1 tab PO DAILY 02/04/20 09/13/20 History RX: Ferrous Sulfate 325 mg PO DAILY 06/16/20 09/13/20 History RX: Famotidine [Acid Deputy Court Clerk] 20 mg PO DAILY 08/09/20 09/13/20 History RX: Levothyroxine Sodium [Tirosint] 300 mcg PO DAILY 08/09/20 09/13/20 History RX: Ondansetron [Zofran 4mg 4 mg PO Q6HP PRN #30 tab 08/11/20 09/13/20 Rx ODT] Allergies Allergy/AdvReac Type Severity Reaction Status Date / Time No Known Allergies Allergy Verified 09/13/20 16:57 OB - H&P: Exam - Physical Exam Vital signs: Temp Pulse Resp BP Pulse Ox 98.0 F 97 H 16 113/76 98 09/14/20 04:00 09/14/20 04:00 09/14/20 04:00 09/14/20 04:00 09/14/20 04:00 - Constitutional no acute distress - Routine HEENT Exam Head: Present: normocephalic Eye: Present: EOMI, PERRL ENT: Present: mucous membranes moist - Routine Neck Exam Present: supple, full ROM - Routine Respiratory Exam Absent: accessory muscle use (good air entry bilaterally), respiratory distress, wheezes, crackles - Routine Cardiovascular Exam Present: RRR. Absent: murmur - Routine Abdominal Exam Present: soft, normoactive bowel sounds. Absent: tenderness, distended, guarding - Routine Rectal Exam Patient deferred: visual exam, digital exam - Routine Exam Patient deferred: external exam, groin exam, perineal exam - Routine Extremities Exam Present: full ROM. Absent: cyanosis, edema - Routine Skin Exam Present: intact. Absent: cyanosis - Routine Neurological Exam Present: alert, oriented X3 - Routine Psychiatric Exam Present: normal affect OB - Results - Labs Labs: Short CBC 09/13/20 Range/Units 16:45 WBC 9.5 (4.8-10.8) K/mm3 Hgb 13.9 (12.2-16.2) g/dL Hct 40.8 (37.0-47.0) % Plt Count 229 (142-424) K/mm3 Urine 09/13/20 Range/Units 16:05 Urine Color Yellow (Yellow) Urine Appearance Clear (Clear) Urine pH 6.5 (5.0-8.5) Ur Specific [place] 1.010 (1.005-1.030) Urine Protein Negative (Negative) Urine Glucose (UA) Negative (Negative) OB - A/P Antepartum (1) Normal delivery at term Status: Acute (2) Decreased movement affecting management of mother, antepartum Status: Acute - Additional Plan Sita
--- NOTE | 2020-09-14 10:21 | HMH.LABNOT ---
Labor Note - Subjective: Date: 09/14/20 Time: 10:21 regular contraction - Objective: NST:: Reactive Contractions:: every 2-3 minutes Cervical Dilation:: 3-4 Effacement:: 90% Station: -2 Membranes: artificially ruptured - Fetus: Monitoring?: Yes monitoring type:: External - Assessment: Labor progressing?: Yes Cephalopelvic disproportion?: No Patient Problems: All Active Problems Normal delivery at term (Acute) Decreased movement affecting management of mother, antepartum (Acute) False labor (Acute) Vaginal bleeding during , antepartum (Acute) Rh negative status during (Acute) (Acute) Annual physical exam (Acute) - Plan: Anesthesia for epidural?: Yes Continue to labor down?: Yes Plan for ?: No Continue to monitor?: Yes Start pushing?: No
[2020-09-14 11:45] VITALS: BP 92/56; PULSE 70; RESP 18; TEMP 36.8; O2SAT 98
--- NOTE | 2020-09-14 13:51 | HMH.LABNOT ---
Labor Note - Subjective: Date: 09/14/20 Time: 13:51 regular contraction - Objective: NST:: Reactive Contractions:: every 2-3 minutes Cervical Dilation:: 6-7 Effacement:: 100% Station: 0 Membranes: artificially ruptured - Fetus: Monitoring?: Yes monitoring type:: Internal and External - Assessment: Labor progressing?: Yes Cephalopelvic disproportion?: No Patient Problems: All Active Problems Normal delivery at term (Acute) Decreased movement affecting management of mother, antepartum (Acute) False labor (Acute) Vaginal bleeding during , antepartum (Acute) Rh negative status during (Acute) (Acute) Annual physical exam (Acute) - Plan: Anesthesia for epidural?: Yes Continue to labor down?: Yes Plan for ?: No Continue to monitor?: Yes Start pushing?: No Comment:: She is progressing well. She is now 6 to 7 cm and 100% effaced. There is some molding the head but the head comes down well with the contraction. I inserted an IUPC and she is having regular contractions. We will plan a vaginal delivery.
--- NOTE | 2020-09-14 17:28 | HMH.DN ---
- Delivery Note Delivery Date:: 09/14/20 Delivery Time:: 17:01 Anesthesia Type: Epidural Was labor medically induced?: Yes Induction method: per pitocin protocol Gestational age (weeks): 39 Infant delivered prior to 39 weeks?: No Infant Gender: Female at 1 minute: 7 at 5 minutes: 9 AF:: Clear fluid LAC or MLE?: LAC Delivery Procedure:: She is a 24-year-old 1 now para 0 at 39+ weeks gestational age. She has had some decreased movement over the last week and as result of that we elected to induce her labor at term. She was brought in on the evening of September 13, 2020 and had Cervidil placed. She then was started on IV oxytocin and had her membranes ruptured. Under labor epidural she progressed to full dilation. She delivered spontaneously a liveborn female child at 5:01 PM in the evening of September 14, 2020. On deliver the head it was noted that there was a loose nuchal cord. This was easily reduced. The rest of the 's body then delivered atraumatically. The baby was vigorous. We allowed the cord to continue to pulsate for approximately 1 minute. The oropharynx and nasopharynx were bulb suction. The cord was then doubly clamped and cut and the was placed on the mother's abdomen for further care. The nurses assigned Apgars of 7 at 1 minute and 9 at 5 minutes. We then obtained cord blood as well as cord pH. Using gentle traction on the cord and countertraction on the fundus I was able to easily deliver the placenta intact. He had a normal three-vessel cord. She had a small first-degree vaginal laceration posteriorly that was repaired with interrupted 3-0 Vicryl Rapide suture. She plans to bottlefeed. Her kerfer machine operator is Dr. Blanchard. Estimated blood loss was approximately 350 cc. Laceration:: vaginal Placental Delivery Description: Spontaneous
[2020-09-14 17:39] LABS: Cord Blood PH 7.33 (7.35-7.45)
[2020-09-14 20:00] VITALS: BP 111/74; PULSE 89; RESP 17; TEMP 36.8; O2SAT 98
[2020-09-14 22:13] LABS: Hematocrit 36.5 % (37.0-47.0); Hemoglobin 12.5 g/dL (12.2-16.2)
[2020-09-15 04:00] VITALS: BP 100/57; PULSE 96; RESP 16; TEMP 36.8; O2SAT 98
[2020-09-15 06:34] LABS: Hemoglobin 11.7 g/dL (12.2-16.2)
--- NOTE | 2020-09-15 08:42 | HMH.ACPN2 ---
Internal Medicine - PN: Subj *Date: 09/15/20 *Time: 08:42 Interval history: She is doing well this morning. She is eating and drinking and ambulating. She is bottlefeeding. She did have a couple of large clots after delivery and she received Methergine as well as Hemabate. She has not had any further episodes of heavy bleeding. Her hemoglobin is stable. Exam Vital signs and Labs for Last 24 Hours: Temp Pulse Resp BP Pulse Ox 98.2 F 96 H 16 100/57 L 98 09/15/20 04:00 09/15/20 04:00 09/15/20 04:00 09/15/20 04:00 09/15/20 04:00 Laboratory Results - last 24 hr 09/14/20 17:28: Cord ABG pH 7.33 L 09/14/20 22:00: Hgb 12.5, Hct 36.5 L 09/15/20 05:59: Hgb 11.7 L, Hct 33.0 L I & O for Last 24 hours: Intake & Output 09/12/20 09/13/20 09/14/20 09/15/20 11:59 11:59 11:59 11:59 Output Total 600 / 600 Balance -600 / -600 Weight 195 lb - Constitutional no acute distress - *Routine HEENT Exam Head: Present: normocephalic Eye: Present: EOMI, PERRL ENT: Present: mucous membranes moist Assessment and Plan (1) Normal delivery at term Status: Acute Category: Medical Code(s): O80 - Encounter for full-term uncomplicated delivery (2) Decreased movement affecting management of mother, antepartum Status: Acute Category: Medical Code(s): O36.8190 - Decreased movements, unspecified trimester, not applicable or unspecified - Assessment and plan all Dx Assessment and Plan for all problems:: She is doing very well this morning. Her hemoglobin is stable. Her lochia is normal. She is bottlefeeding. We will plan to send her home tomorrow.
[2020-09-15 20:12] VITALS: BP 104/55; PULSE 101; RESP 18; TEMP 36.8; O2SAT 98
[2020-09-16 04:19] VITALS: BP 96/44; PULSE 76; RESP 16; TEMP 36.7; O2SAT 99
[2020-09-16 08:00] VITALS: BP 91/54; PULSE 84; RESP 20; TEMP 36.6; O2SAT 97
--- NOTE | 2020-09-16 09:27 | HMH.OBDCSM ---
General - General Admission date:: 09/13/20 Discharge date: 09/16/20 HPI - History of Present Illness Comments: She is a 24-year-old 1 now para 1 at 39 1 weeks gestational age. She has slightly decreased movement and as result of that we elected to induce her labor at term. Hospital Course Hospital Course: She had Cervidil placed on the evening prior to her delivery. She subsequently was started on IV oxytocin the following morning and had her membranes ruptured. Under labor epidural she progressed to full dilation and delivered spontaneously a liveborn female child at 5:01 PM in the afternoon of September 14, 2020. The baby weighed 6 pounds 5 ounces and was 18-1/2 inches long. She had Apgars of 7 at 1 minute and 8 at 5 minutes. She has done well and has remained afebrile throughout her hospitalization. Shortly after her delivery she had a couple of baseball sized clots but this subsequently settled with evacuation of the uterine blood clots and administration of Methergine and Hemabate. Her hemoglobin is normal. She has O Rh- blood and was rubella immune. She was group B streptococcus negative. Her rn peritoneal dialysis is Dr. Blanchard. She is bottlefeeding. She is discharged home to follow-up with me in approximately 2 weeks time. She will continue with her vitamins and iron. She was given the usual instructions with respect to limiting her activity, driving and sexual activity. Her condition on discharge is stable and improved. Objective Vital signs: Temp Pulse Resp BP Pulse Ox 97.9 F 84 20 91/54 L 97 09/16/20 08:00 09/16/20 08:00 09/16/20 08:00 09/16/20 08:00 09/16/20 08:00 no acute distress - *Routine HEENT Exam Head: Present: normocephalic Eye: Present: EOMI, PERRL ENT: Present: mucous membranes moist DS: Diagnosis - Discharge Diagnosis (1) Normal delivery at term Status: Acute (2) Decreased movement affecting management of mother, antepartum Status: Acute Discharge Plan - Patient Discharge Instructions ACTIVITY: No heavy lifting DIET: continue same diet Additional Instructions: NOTHING IN VAGINA FOR 6 WEEKS NO HEAVY LIFTING OR STRENUOUS ACTIVITY Patient Instructions: Depression, Hemorrhage, DI for Labor and Delivery, Vaginal , DI for Pre-eclampsia, [facility] Post Discharge Instructions, Preventing the Spread of Coronavirus Discharge Instructions - Follow up Plan Follow up with: Rey Yee MD [Staff Physician] - Disposition: Home, Self-Chcf Medications: Home Medications Medication Instructions Recorded Confirmed Type prenat.vits,jenni,[id number] 1 tab PO DAILY 02/04/20 09/13/20 History Ferrous Sulfate 325 mg PO DAILY 06/16/20 09/13/20 History Famotidine [Acid Finishing And Shipping Supervisor] 20 mg PO DAILY 08/09/20 09/13/20 History Levothyroxine Sodium [Tirosint] 300 mcg PO DAILY 08/09/20 09/13/20 History Ondansetron [Zofran 4mg ODT] 4 mg PO Q6HP PRN #30 tab 08/11/20 09/13/20 Rx Prescriptions/Medication Reconciliation: Continued prenat.vits,jenni,[id number] 1 tab PO DAILY Levothyroxine Sodium [Tirosint] 300 mcg PO DAILY Famotidine [Acid Finishing And Shipping Supervisor] 20 mg PO DAILY Ferrous Sulfate 325 mg PO DAILY Ondansetron [Zofran 4mg ODT] 4 mg PO Q6HP PRN #30 tab PRN Reason: nausea and vomiting - Problem Reconciliation Problems Reviewed?: Yes
== END 2020-09-16 10:14 | disposition home or self-care (01) | DRG 807 ==
PROVIDERS: Admitting Provider Nurse Practitioner Obstetrics & Gynecology; PCP Family Medicine; Visit Provider Nurse Practitioner Obstetrics & Gynecology
DX: O36.8130 Decreased fetal movements, third trimester, not applicable or unspecified (principal); Z37.0 Single live birth; Z3A.39 39 weeks gestation of pregnancy; O69.81X0 Labor and delivery complicated by cord around neck, without compression, not applicable or unspecified; O70.0 First degree perineal laceration during delivery
CPT/HCPCS: 59409; 36415; 59025; 80305; 81001; 82800; 85014; 85018; 85025; 85461; 86328; 86850; C1758; J2405

== ENCOUNTER 2021-03-01 18:14 | Emergency (ER) | payer OTHER, SELFPAY ==
[2021-03-01 18:40] VITALS: BP 127/72; PULSE 54; RESP 18; TEMP 36.9; O2SAT 96; BMI 33.6
[2021-03-01 19:12] LABS: UTC Strep Screen (Rapid) Negative (Negative)
--- NOTE | 2021-03-01 19:18 | HMH.EDUTC ---
[facility] [place] Clinical Impression: Bronchitis Pharyngitis Qualifiers: Pharyngitis/tonsillitis etiology: unspecified etiology Qualified Code(s): J02.9 - Acute pharyngitis, unspecified Disposition: Home, Self-Care Condition on Discharge: Good Instructions: DI for Pharyngitis/Tonsillopharyngitis -- Adult, DI for Acute Bronchitis Additional Instructions: Drink plenty of fluids. Take tylenol or ibuprofen for pain or fever. Take the medications as directed. Follow up with your regular doctor. GO TO THE ER FOR ANY WORSENING SYMPTOMS Prescriptions: Brompheniramine/Pseudoephed/Dm [Bromfed Dm Cough Syrup] 5 ml PO Q6HP PRN #240 syrup PRN Reason: Cough Transmission Status: Received by [facility] Benzonatate [Tessalon Perle 100mg Cap] 100 mg PO TIDP PRN #30 cap PRN Reason: Cough Transmission Status: Received by [facility] Azithromycin [Z-Samy 250mg Tab*] 250 mg PO UD DOSE PK #6 tab Transmission Status: Received by [facility] Referrals: Qing Sorto [Primary Care Provider] - Forms: Work/School Release Time of Disposition: 19:28 Medical Decision Making - Medical Records Medical records reviewed: No: I reviewed the patient's medical records. - Dougie Inquiry Pt receiving controlled substance: No Vital Signs: 03/01/21 18:40 03/01/21 19:36 Temperature 98.4 F 98.4 F Temperature Source Oral Pulse Rate 54 L Pulse Rate [Left Brachial] 54 L Respiratory Rate 18 18 Blood Pressure 127/72 Blood Pressure [Left Arm] 127/72 Blood Pressure Mean [Left Arm] 90 Blood Pressure Source [Left Arm] Automatic Cuff Blood Pressure Position [Left Arm] Sitting 02 Sat by Pulse Oximetry 96 Oxygen Delivery Method Room Air - Lab Data Lab results reviewed: Yes: I reviewed the patient's lab results. Lab Results 03/01/21 19:11: Strep Scn Rapid Clinic Negative Orders (Tests/Meds): ORDERS Category Date Time Status Strep Screen Confirmation Stat Micro 03/01/21 19:11 Received [facility] [place] - General Stated complaint: Cough,Sore throat,congestion Time Seen by Provider: 03/01/21 19:18 Mode of Arrival: Ambulatory Source of Information: Patient Limitations: No Limitations Description of Symptoms (Recalled from Triage Doc. by RN): PATIENT C/O SORE THROAT, COUGH, CONGESTION X 1 WEEK HEENT Symptoms (Recalled from RN notes): Yes Resp Symptoms (Recalled from RN notes): Yes Skin Symptoms (Recalled from RN notes): No MS Symptoms (Recalled from RN notes): No Functional Status (Recalled from RN notes): WNL - History of Present Illness Provider Complaint: She states that she has had a sore throat, sinus drainage and a nagging cough for the past 2 days. She has been vaccinated against covid. - Related Data Home Medications Medication Instructions Recorded Confirmed levothyroxine 150 mcg tablet 150 mcg PO tab 11/03/20 12/08/20 Previous Rx's Medication Instructions Recorded ibuprofen 200 mg tablet 800 mg PO ONCE #4 tab 11/10/20 Azithromycin [Z-Samy 250mg Tab*] 250 mg PO UD DOSE PK #6 tab 03/01/21 Benzonatate [Tessalon Perle 100mg 100 mg PO TIDP PRN #30 cap 03/01/21 Cap] Brompheniramine/Pseudoephed/Dm 5 ml PO Q6HP PRN #240 syrup 03/01/21 [Bromfed Dm Cough Syrup] Allergies Allergy/AdvReac Type Severity Reaction Status Date / Time No Known Allergies Allergy Verified 12/08/20 11:08 - Worker's Comp Is this a Worker's Comp case?: No [facility] History - Hepatitis A Screen Drug use history?: No High risk sexual behaviors?: No History of sexually transmitted infection?: No Currently employed?: No Childcare worker?: No Do you have indoor plumbing?: Yes Do you have electricity?: Yes Attestation statement:: This patient has been screened for Hepatitis A risk factors. I have reviewed the patient's past medical history: Yes Medical History: Denies:: Anxiety, Depression, Migraine, Seizures Other Medical History: Reports: Hypothyroidism. Denies: Blood Tra
[2021-03-01 19:36] VITALS: BP 127/72; PULSE 54; RESP 18; TEMP 36.9; O2SAT 96
== END 2021-03-01 19:40 | disposition home or self-care (01) ==
PROVIDERS: Emergency Provider Nurse Practitioner Family; PCP Family Medicine
DX: J40 Bronchitis, not specified as acute or chronic (principal)
CPT/HCPCS: 87880; 99202; G0463

== ENCOUNTER 2021-04-13 18:35 | Emergency (ER) | payer OTHER, SELFPAY ==
[2021-04-13 19:26] VITALS: BP 110/66; PULSE 80; RESP 16; TEMP 36.7; O2SAT 98; BMI 34.7
[2021-04-13 19:51] LABS: Apearance,Urine Clear (Clear); Color,Urine Red (Yellow); Glucose,Urine (UA) 1+ (Negative); Protein,Urine 4+ (Negative)
[2021-04-13 19:52] LABS: Bilirubin,Urine 2+ (Negative); Blood, Urine 2+ (Negative); Ketones,Urine SMALL (Negative)
[2021-04-13 19:53] LABS: UTC Leukocyte Esterase,Urine 3+ (Negative); UTC Nitrate,Urine Positive (Negative); Urobilinogen,Urine >=8 EU/dl (0.2)
[2021-04-13 19:54] LABS: UTC Pregnancy Test, Urine Negative (Negative)
--- NOTE | 2021-04-13 19:55 | HMH.EDUTC ---
[facility] [place] Impression: UTI (urinary tract infection) Qualifiers: Urinary tract infection type: site unspecified Hematuria presence: with hematuria Qualified Code(s): N39.0 - Urinary tract infection, site not specified Disposition: Home, Self-Care Condition on Discharge: Good Instructions: Urinary Tract Infection, DI for Urinary Tract Infection (UTI) Additional Instructions: Drink plenty of fluids. Take tylenol or ibuprofen for pain or fever. Take the medications as directed. Follow up with your regular doctor. GO TO THE ER FOR ANY WORSENING SYMPTOMS The pyridium will make your urine turn orange, this is an expected side effect. It will stain your clothes if it comes into contact with them. Prescriptions: Ciprofloxacin HCl [Cipro 500mg Tab] 500 mg PO BID 7 Days #14 tab Transmission Status: Received by [facility] Fluconazole [Diflucan 150mg tab] 150 mg PO ONCE #1 tab Transmission Status: Received by [facility] Phenazopyridine HCl [Pyridium 200mg Tablet] 200 pow PO TID #6 tab Transmission Status: Received by [facility] Referrals: Qing Sorto [Primary Care Provider] - Forms: Work/School Release Time of Disposition: 19:59 Medical Decision Making - Medical Records Medical records reviewed: No: I reviewed the patient's medical records. - Dougie Inquiry Pt receiving controlled substance: No Vital Signs: 04/13/21 19:26 04/13/21 20:04 Temperature 98.1 F 98 F Temperature Source Oral Pulse Rate 81 Pulse Rate [Left] 80 Respiratory Rate 16 16 Blood Pressure 117/69 Blood Pressure [Right Arm] 110/66 Blood Pressure Mean [Right Arm] 80 02 Sat by Pulse Oximetry 98 - Lab Data Lab results reviewed: Yes: I reviewed the patient's lab results. Lab Results 04/13/21 19:30: Urine Color Red, Urine Appearance Clear, Urine pH 5.0, Ur Specific Mack 1.010, Urine Protein 4+, Urine Glucose (UA) 1+, Urine Ketones Small, Urine Blood 2+, Urine Nitrate Positive A, Urine Bilirubin 2+ A, Urine Urobilinogen >=8, Ur Leukocyte Esterase 3+ A, Tst Clinic Negative Orders (Tests/Meds): ED MEDICATIONS Discontinued Medications Generic Name Dose Route Start Last Admin Trade Name Freq PRN Reason Stop Dose Admin Levofloxacin 500 mg 04/13/21 19:58 04/13/21 20:30 Levofloxacin 500mg Tab PO 04/13/21 19:59 500 mg ONCE ONE Administration Protocol [facility] [place] - General Stated complaint: pain in lower abd, trouble urinating Time Seen by Provider: 04/13/21 19:35 Mode of Arrival: Ambulatory Source of Information: Patient Limitations: No Limitations Description of Symptoms (Recalled from Triage Doc. by RN): pt c/o trouble urinating, burning and painful urination, vaginal itching, lower abd pain, and nausea. pt states she thinks she has a uti. HEENT Symptoms (Recalled from RN notes): No Resp Symptoms (Recalled from RN notes): No Skin Symptoms (Recalled from RN notes): No MS Symptoms (Recalled from RN notes): No Functional Status (Recalled from RN notes): na - History of Present Illness Provider Complaint: She c/o low back pain and lower abdomen pain since yesterday. She has burning with urination and urinary frequency also. - Related Data Home Medications Medication Instructions Recorded Confirmed levothyroxine 150 mcg tablet 150 mcg PO tab 11/03/20 04/09/21 Previous Rx's Medication Instructions Recorded norgestimate 0.25 mg-ethinyl 1 tab PO DAILY #28 tab 04/09/21 estradiol 35 mcg tablet vits no.126-ferrous fum 1 tab PO DAILY #30 tab 04/09/21 28 mg iron-folic acid 800 mcg tablet Ciprofloxacin HCl [Cipro 500mg 500 mg PO BID 7 Days #14 tab 04/13/21 Tab] Fluconazole [Diflucan 150mg tab] 150 mg PO ONCE #1 tab 04/13/21 Phenazopyridine HCl [Pyridium 200 pow PO TID #6 tab 04/13/21 200mg Tablet] Allergies Allergy/AdvReac Type Severity Reaction Status Date / Time No Known Allergie
[2021-04-13 20:04] VITALS: BP 117/69; PULSE 81; RESP 16; TEMP 36.6
== END 2021-04-13 20:34 | disposition home or self-care (01) ==
PROVIDERS: Emergency Provider Nurse Practitioner Family; PCP Family Medicine
DX: N30.01 Acute cystitis with hematuria (principal); F41.8 Other specified anxiety disorders; E03.9 Hypothyroidism, unspecified
CPT/HCPCS: 81003; 81025; 99202; G0463

== ENCOUNTER → 2021-04-19 13:23 | Outpatient (CLI) | payer OTHER, SELFPAY ==
--- NOTE | 2021-04-19 13:23 | US_ITS ---
PROCEDURE: US TRANSVAGINAL CLINICAL INDICATION: pain is after intercourse COMPARISON: US US OB TRANSVAGINAL from 02/13/2020 FINDINGS: UTERUS: 7.3 x 6cmx 4cm with a combined endometrial thickness of 2.3mm LEFT OVARY: [id number] with a volume of 7.1ml. RIGHT OVARY: 4cmx [id number] with a volume of 20.4ml. The uterus demonstrates homogeneous echotexture without evidence of focal lesions. The endometrial echo complex is within normal limits. There is a focal anechoic lesion noted in the right ovary measuring 3 x 2.1 centimeters, demonstrates minor septations. The left ovary is unremarkable. No free fluid is noted in the pelvic cul-de-sac. IMPRESSION: Focal complex appearing lesion in the right ovary measuring 3 x 2.1 centimeters. Follow-up ultrasound in 2-3 months is recommended. Dictated by: Karen Reyes 04/19/2021 15:59 Karen Reeys in OV 04/19/2021 15:59
== END ==
PROVIDERS: PCP Family Medicine; Visit Provider Nurse Practitioner Obstetrics & Gynecology
DX: R10.2 Pelvic and perineal pain (principal)
CPT/HCPCS: 76830

== ENCOUNTER 2021-06-01 14:10 | Emergency (ER) | payer OTHER, SELFPAY ==
[2021-06-01 14:45] VITALS: BP 00/00; PULSE 0; RESP 0; TEMP -17.7; TEMP 0; O2SAT 0
== END 2021-06-01 14:48 | disposition left against medical advice (07) ==
LOC: UTC 14:14
PROVIDERS: Emergency Provider Nurse Practitioner; PCP Family Medicine
DX: Z53.21 Procedure and treatment not carried out due to patient leaving prior to being seen by health care provider (principal)

== ENCOUNTER 2021-06-01 17:52 | Emergency (ER) | payer OTHER, SELFPAY ==
[2021-06-01 18:05] VITALS: BP 118/81; PULSE 86; RESP 18; TEMP 36.8; O2SAT 99; BMI 37.8
[2021-06-01 18:44] LABS: Adenovirus,PCR Not Detected (NotDetected); Bordetella Pertussis Not Detected (NotDetected); Chlamydophila Pneumoniae, PCR Not Detected (NotDetected); Coronavirus 19, PCR Not Detected (NotDetected); Coronavirus 229E Not Detected (NotDetected); Coronavirus NL63 Not Detected (NotDetected); Coronavirus OC43 Not Detected (NotDetected); Coronovirus HKU1,PCR Not Detected (NotDetected); Human Metapneumovirus Not Detected (NotDetected); Influenza A, PCR Not Detected (NotDetected); Influenza AH1, 2009 Not Detected (NotDetected); Influenza AH1, PCR Not Detected (NotDetected); Influenza AH3,PCR Not Detected (NotDetected); Influenza B, PCR Not Detected (NotDetected); Mycoplasma Pneumoniae, PCR Not Detected (NotDetected); Parainfluenza 1, PCR Not Detected (NotDetected); Parainfluenza 2, PCR Not Detected (NotDetected); Parainfluenza 3, PCR Not Detected (NotDetected); Parainfluenza 4, PCR Not Detected (NotDetected); Rhinovirus/Enterovirus Not Detected (NotDetected)
--- NOTE | 2021-06-01 18:49 | HMH.EDUTC ---
[facility] [place] Clinical Impression: Otitis media Qualifiers: Otitis media type: unspecified Laterality: bilateral Qualified Code(s): H66.93 - Otitis media, unspecified, bilateral Disposition: Home, Self-Care Condition on Discharge: Good Instructions: Middle Ear Infections (Alternative Therapy), Middle Ear Infection, Amoxicillin and Clavulanic Acid Additional Instructions: *Monitor Temp, Over the counter Motrin or Tylenol as directed/as needed Tylenol every 4 hours and Motrin every 6 hours (as long as your family doctor has told you that you can take it) for fever or pain. and straight to ER if unable to lower temp less than 101.0 after medication given *Warm salt water gargles may help to soothe the throat *Throat Lozenges *Warm fluids like tea with honey may help to soothe the throat *Sleep elevated *Humidifier/Vaporizer Take antibiotics as prescribed Follow up IMMEDIATELY for new or worsening symptoms or no Noticeable improvement over the next 48-72 hours. 911 for difficulty breathing or swallowing You were tested for today for COVID19 your test result should be back in the next 24-48 hours, You was given handout to [facility] your results should be available on there later today if you do not have internet or trouble accessing you can call at [phone] You was given a handout with instructions for Self Quarantine and Self isolation for while you wait on test results and what to do if they are positive If you are positive the Health Dept will be contacting you also Make sure to take your Vitamins Vit. C Vit D and Zinc if you can take them Prescriptions: Amoxicillin/Potassium Clav [Augmentin 875-125 Tablet] 1 tab PO Q12H 10 Days #20 tab Transmission Status: Pending to [facility] methylPREDNISolone [Medrol 4mg tab] 4 mg PO DIRECTED #21 tab Transmission Status: Pending to [facility] Referrals: Qing Sorto [Primary Care Provider] - As needed Time of Disposition: 19:06 Medical Decision Making - Dougie Inquiry Pt receiving controlled substance: No Dougie was queried for this patient: No Vital Signs: 06/01/21 18:05 Temperature 98.2 F Temperature Source Oral Pulse Rate [Left Brachial] 86 Respiratory Rate 18 Blood Pressure [Left Arm] 118/81 Blood Pressure Mean [Left Arm] 93 Blood Pressure Source [Left Arm] Automatic Cuff Blood Pressure Position [Left Arm] Sitting 02 Sat by Pulse Oximetry 99 Oxygen Delivery Method Room Air Orders (Tests/Meds): ORDERS Category Date Time Status Full Resp Panel w/COVID ([facility]) Routine Lab 06/01/21 18:07 Received [facility] [place] HPI - General Stated complaint: R ear pain Time Seen by Provider: 06/01/21 18:49 Mode of Arrival: Ambulatory Source of Information: Patient Limitations: No Limitations Description of Symptoms (Recalled from Triage Doc. by RN): PATIENT C/O CONGESTION, RIGHT EAR PAIN, AND HEADACHE. DAUGHTER DX WITH RSV LAST WEEK HEENT Symptoms (Recalled from RN notes): Yes Resp Symptoms (Recalled from RN notes): No Skin Symptoms (Recalled from RN notes): No MS Symptoms (Recalled from RN notes): No Functional Status (Recalled from RN notes): WNL - History of Present Illness Provider Complaint: Patient states that her daughter had RSV last week States that she has been having sinus congestion and this morning she woke up with shooting sharp pain in her right ear that has continued to get worse today states that pain is sharp and feels like her ear is full so she came in also wants to get tested to see if she may have RSV too - Related Data Home Medications Medication Instructions Recorded Confirmed levothyroxine 150 mcg tablet 150 mcg PO tab 11/03/20 04/09/21 Previous Rx's Medication Instructions Recorded norgestimate 0.25 mg-ethinyl 1 tab PO DAILY #28 tab 04/09/21 estradiol 35 mcg tablet vits no.126-ferrous fum 1 tab PO DAILY #30 tab 04/09/21 28 mg iron-folic acid 800 mcg tablet Ciprofloxac
[2021-06-01 19:10] LABS: UTC Pregnancy Test, Urine Negative (Negative)
[2021-06-01 19:13] VITALS: BP 118/81; PULSE 86; RESP 18; TEMP 36.8; O2SAT 99
[2021-06-01 22:30] LABS: Respiratory Syncytial Virus Detected (NotDetected)
== END 2021-06-01 19:14 | disposition home or self-care (01) ==
PROVIDERS: Emergency Provider Nurse Practitioner; PCP Family Medicine
DX: H66.93 Otitis media, unspecified, bilateral (principal); F41.8 Other specified anxiety disorders; E03.9 Hypothyroidism, unspecified
CPT/HCPCS: 81025; 87581; 87633; 87798; 99203; G0463

== ENCOUNTER → 2021-06-23 09:31 | Outpatient (CLI) | payer OTHER, SELFPAY ==
[2021-06-23 11:15] LABS: HCG,Quantitative 335 mIU/ml (0-5.42)
== END ==
PROVIDERS: Visit Provider Nurse Practitioner Obstetrics & Gynecology
DX: N92.6 Irregular menstruation, unspecified (principal)
CPT/HCPCS: 36415; 84702

== ENCOUNTER → 2021-06-23 09:46 | Outpatient (CLI) | payer OTHER, SELFPAY | PROVIDERS: PCP Family Medicine; Visit Provider Nurse Practitioner | DX: Z20.822 Contact with and (suspected) exposure to COVID-19 (principal) | CPT/HCPCS: C9803; U0003; U0005 ==

== ENCOUNTER 2021-06-29 17:34 | Emergency (ER) | payer OTHER, SELFPAY ==
[2021-06-29 18:00] VITALS: BP 117/75; PULSE 80; RESP 18; TEMP 37; O2SAT 97; BMI 36.8
[2021-06-29 18:08] LABS: UTC Pregnancy Test, Urine Negative (Negative)
--- NOTE | 2021-06-29 18:24 | HMH.EDUTC ---
[facility] [place] Clinical Impression: Inapp chg hCG early preg Disposition: Home, Self-Care Condition on Discharge: Good Instructions: Home and Clinic Tests Additional Instructions: Keep appointment with Dr Yee on Monday as scheduled If you start having any pain or severe heavy bleeding go straight to the ER Return if needed Follow up as needed Referrals: Qing Sorto [Primary Care Provider] - Rey Yee MD [Staff Physician] - Time of Disposition: 19:51 Medical Decision Making - Dougie Inquiry Pt receiving controlled substance: No Dougie was queried for this patient: No Vital Signs: 06/29/21 18:00 Temperature 98.6 F Temperature Source Oral Pulse Rate [Left] 80 Respiratory Rate 18 Blood Pressure [Right Arm] 117/75 Blood Pressure Mean [Right Arm] 89 02 Sat by Pulse Oximetry 97 - Lab Data Lab results reviewed: Yes: I reviewed the patient's lab results. Lab Results 06/29/21 18:01: Tst Clinic Negative 06/29/21 18:36: HCG, Quant 31 H 06/29/21 18:36: Serum HCG, Qual Positive - Physician Consults Physician Consulted: OBGYN residential concierge Dr Gonzalez Time: 19:32 Reason -: Gynocological Eval/Care Comment/Response: Spoke with Dr Gonzalez and informed her of drop in HCG level but no bleeding or pain and she advised no other testing needed at this time, to have patient make sure to keep appointment with Dr Yee on Monday as scheduled for further evaluation and examination Medical Decision Narrative: Patient Quant dropped from 06/23/21 from 335 to 31 today Patient still denies bleeding, denies cramping or having any pelvic pressure or pain Paged OBGYN communications operator awaiting call back [facility] [place] HPI - General Stated complaint: missed period, vomiting, upset stomach Time Seen by Provider: 06/29/21 18:24 Mode of Arrival: Ambulatory Source of Information: Patient Limitations: No Limitations Description of Symptoms (Recalled from Triage Doc. by RN): pt states she has taken eight positive home tests. pt states she had a feeling something changed so she took another urine preg test and it was negative. HEENT Symptoms (Recalled from RN notes): No Resp Symptoms (Recalled from RN notes): No Skin Symptoms (Recalled from RN notes): No MS Symptoms (Recalled from RN notes): No Functional Status (Recalled from RN notes): na - History of Present Illness Provider Complaint: Patient state that she recently took 8 home test and they was positive so she called Dr Yee and he ordered some blood test and told her she was and made appointment in the clinic for Monday States that she has been fine and earlier today she felt a little off and felt like something changed so she took another home test and it was negative States that she is not having any bleeding or cramping but wanted to come in and get tested again to see if it still showed she was - Related Data Home Medications Medication Instructions Recorded Confirmed levothyroxine 150 mcg tablet 150 mcg PO tab 11/03/20 04/09/21 Previous Rx's Medication Instructions Recorded norgestimate 0.25 mg-ethinyl 1 tab PO DAILY #28 tab 04/09/21 estradiol 35 mcg tablet vits no.126-ferrous fum 1 tab PO DAILY #30 tab 04/09/21 28 mg iron-folic acid 800 mcg tablet Ciprofloxacin HCl [Cipro 500mg 500 mg PO BID 7 Days #14 tab 04/13/21 Tab] Fluconazole [Diflucan 150mg tab] 150 mg PO ONCE #1 tab 04/13/21 Phenazopyridine HCl [Pyridium 200 pow PO TID #6 tab 04/13/21 200mg Tablet] Amoxicillin/Potassium Clav 1 tab PO Q12H 10 Days #20 tab 06/01/21 [Augmentin 875-125 Tablet] methylPREDNISolone [Medrol 4mg 4 mg PO DIRECTED #21 tab 06/01/21 tab] Allergies Allergy/AdvReac Type Severity Reaction Status Date / Time No Known Allergies Allergy Verified 04/09/21 09:41 - Worker's Comp Is this a Worker's Comp case?: No [facility] History - Hepatitis A Screen Drug use history?: No
[2021-06-29 19:05] LABS: HCG Qualitative, Serum Positive (Negative)
[2021-06-29 19:29] LABS: HCG,Quantitative 31 mIU/ml (0-5.42)
[2021-06-29 19:53] VITALS: BP 117/75; PULSE 80; RESP 18; TEMP 37
== END 2021-06-29 19:55 | disposition home or self-care (01) ==
PROVIDERS: Emergency Provider Nurse Practitioner; PCP Family Medicine
DX: O02.81 Inappropriate change in quantitative human chorionic gonadotropin (hCG) in early pregnancy (principal); E03.9 Hypothyroidism, unspecified
CPT/HCPCS: 81025; 84702; 84703; 99202; G0463

== ENCOUNTER 2021-07-09 09:33 | Emergency (ER) | payer OTHER, SELFPAY ==
[2021-07-09 09:35] VITALS: BP 118/71; PULSE 87; RESP 18; TEMP 36.8; O2SAT 100; BMI 35.4
[2021-07-09 10:04] LABS: UTC Strep Screen (Rapid) Negative (Negative)
[2021-07-09 10:15] LABS: Adenovirus,PCR Not Detected (NotDetected); Bordetella Pertussis Not Detected (NotDetected); Chlamydophila Pneumoniae, PCR Not Detected (NotDetected); Coronavirus 19, PCR Not Detected (NotDetected); Coronavirus 229E Not Detected (NotDetected); Coronavirus NL63 Not Detected (NotDetected); Coronavirus OC43 Not Detected (NotDetected); Coronovirus HKU1,PCR Not Detected (NotDetected); Human Metapneumovirus Not Detected (NotDetected); Influenza A, PCR Not Detected (NotDetected); Influenza AH1, 2009 Not Detected (NotDetected); Influenza AH1, PCR Not Detected (NotDetected); Influenza AH3,PCR Not Detected (NotDetected); Influenza B, PCR Not Detected (NotDetected); Mycoplasma Pneumoniae, PCR Not Detected (NotDetected); Parainfluenza 1, PCR Not Detected (NotDetected); Parainfluenza 2, PCR Not Detected (NotDetected); Parainfluenza 3, PCR Not Detected (NotDetected); Respiratory Syncytial Virus Not Detected (NotDetected); Rhinovirus/Enterovirus Not Detected (NotDetected)
--- NOTE | 2021-07-09 10:23 | HMH.EDUTC ---
[facility] [place] Disposition Clinical Impression: Exposure to COVID-19 virus Otitis media Qualifiers: Otitis media type: suppurative Chronicity: acute Laterality: bilateral Recurrence: non-recurrent Spontaneous tympanic membrane rupture: without spontaneous rupture Qualified Code(s): H66.003 - Acute suppurative otitis media without spontaneous rupture of ear drum, bilateral Pharyngitis Qualifiers: Pharyngitis/tonsillitis etiology: other specified organisms Qualified Code(s): J02.8 - Acute pharyngitis due to other specified organisms Disposition: Home, Self-Care Condition on Discharge: Good Instructions: Middle Ear Infection, DI for Pharyngitis/Tonsillopharyngitis -- Adult, Preventing the Spread of Coronavirus Discharge Instructions Additional Instructions: Drink plenty of fluids. Take tylenol or ibuprofen for pain or fever. Take the medications as directed. Follow up with your regular doctor. GO TO THE ER FOR ANY WORSENING SYMPTOMS Quarantine until you know the results of your covid-19 test. If it is positive, the health department should call you and give you further instructions about your length of Quarantine and other things. Notify your school or workplace of your results and follow their instructions regarding return to work/school. Prescriptions: Brompheniramine/Pseudoephed/Dm [Bromfed Dm Cough Syrup] 5 ml PO Q6HP PRN #240 ml PRN Reason: Cough Transmission Status: Received by [facility] Amoxicillin [Amoxicillin 500mg Tab] 500 mg PO TID 10 Days #30 tab Transmission Status: Received by [facility] Ondansetron [Zofran 4mg ODT] 4 mg PO DAILYP PRN #12 tab PRN Reason: Nausea Transmission Status: Received by [facility] Referrals: Qing Sorto [Primary Care Provider] - Forms: Work/School Release Time of Disposition: 10:28 Medical Decision Making - Medical Records Medical records reviewed: No: I reviewed the patient's medical records. - Dougie Inquiry Pt receiving controlled substance: No Vital Signs: 07/09/21 09:35 07/09/21 10:29 Temperature 98.2 F 98.2 F Temperature Source Oral Pulse Rate 87 Pulse Rate [Right Brachial] 87 Respiratory Rate 18 18 Blood Pressure 118/71 Blood Pressure [Right Arm] 118/71 Blood Pressure Mean [Right Arm] 86 Blood Pressure Source [Right Arm] Automatic Cuff Blood Pressure Position [Right Arm] Sitting 02 Sat by Pulse Oximetry 100 Oxygen Delivery Method Room Air - Lab Data Lab results reviewed: Yes: I reviewed the patient's lab results. Lab Results 07/09/21 09:54: Strep Scn Rapid Clinic Negative 07/09/21 10:07: Chlamy pneumoniae PCR Not detected, Adenovirus (PCR) Not detected, B. pertussis DNA (PCR) Not detected, Coronavirus OC43 (PCR) Not detected, Coronavirus HKU1 (PCR) Not detected, Coronavirus 229E (PCR) Not detected, SARS-CoV-2 (PCR) Not detected, Coronavirus NL63 (PCR) Not detected, Human Metapneumovir PCR Not detected, Influenza A (H1) PCR Not detected, Influ A (H1N1/09) PCR Not detected, Influenza A (H3) PCR Not detected, Influenza Type A (PCR) Not detected, Influenza Type B (PCR) Not detected, M. pneumoniae (PCR) Not detected, Parainfluenza 1 (PCR) Not detected, Parainfluenza 2 (PCR) Not detected, Parainfluenza 3 (PCR) Not detected, Parainfluenza 4 (PCR) Detected A, RSV (PCR) Not detected, Entero/Rhino (PCR) Not detected Orders (Tests/Meds): ORDERS Category Date Time Status Strep Screen Confirmation Routine Micro 07/09/21 09:54 Received [facility] [place] HPI - General Stated complaint: headace, sore throat, Time Seen by Provider: 07/09/21 10:23 - History of Present Illness Provider Complaint: she c/o sore throat and feeling bad for the past 2 days. - Related Data Home Medications Medication Instructions Recorded Confirmed levothyroxine 150 mcg tablet 150 mcg PO DAILY tab 11/03/20 07/09/21 Previous Rx's Medication Instructions Recorded Amoxicillin [Amoxicillin 500mg Tab] 500 mg PO TID 1
[2021-07-09 10:29] VITALS: BP 118/71; PULSE 87; RESP 18; TEMP 36.8; O2SAT 100
[2021-07-09 11:36] LABS: Parainfluenza 4, PCR Detected (NotDetected)
== END 2021-07-09 10:40 | disposition home or self-care (01) ==
PROVIDERS: Emergency Provider Nurse Practitioner Family; PCP Family Medicine
DX: J02.9 Acute pharyngitis, unspecified (principal); Z20.822 Contact with and (suspected) exposure to COVID-19; E03.9 Hypothyroidism, unspecified
CPT/HCPCS: 87581; 87632; 87798; 87880; 99203; C9803; G0463; U0003; U0005

== ENCOUNTER 2021-07-12 09:53 | Emergency (ER) | payer OTHER, SELFPAY ==
[2021-07-12 10:00] VITALS: BP 109/83; PULSE 82; RESP 18; TEMP 36.7; O2SAT 98; BMI 34.3
[2021-07-12 10:27] LABS: UTC Strep Screen (Rapid) Negative (Negative)
--- NOTE | 2021-07-12 10:44 | HMH.EDUTC ---
[facility] [place] Disposition Clinical Impression: Sore throat (viral) Disposition: Home, Self-Care Condition on Discharge: Good Instructions: Sore Throat, DI for Cough -- Adult Additional Instructions: *Monitor Temp, Over the counter Motrin or Tylenol as directed/as needed Tylenol every 4 hours and Motrin every 6 hours (as long as your family doctor has told you that you can take it) for fever or pain. and straight to ER if unable to lower temp less than 101.0 after medication given *Warm salt water gargles may help to soothe the throat *Throat Lozenges *Warm fluids like tea with honey may help to soothe the throat *Sleep elevated *Humidifier/Vaporizer *Bromfed may cause drowsiness. Take as prescribed Know how it effects you (your child) before driving, caring for small child, or sending your child to school. Not other antihistamines/allergy medications while taking bromfed Your throat swab was sent for culture. Those results are typically sent to your primary care. Be sure to follow up in 2-3 days with your family doctor/primary care physician if no improvement so they can review those result and treat if necessary. If you don?t have a primary care doctor, I recommend you get one but in the mean time, you will have to return to a walk in clinic Follow up IMMEDIATELY for new or worsening symptoms or no Noticeable improvement over the next 48-72 hours. 911 for difficulty breathing or swallowing Referrals: Qing Sorto [Primary Care Provider] - As needed Forms: Work/School Release Time of Disposition: 11:00 Medical Decision Making - Dougie Inquiry Pt receiving controlled substance: No Dougie was queried for this patient: No Vital Signs: 07/12/21 10:00 Temperature 98.1 F Temperature Source Oral Pulse Rate [Left Brachial] 82 Respiratory Rate 18 Blood Pressure [Left Arm] 109/83 L Blood Pressure Mean [Left Arm] 91 Blood Pressure Source [Left Arm] Automatic Cuff Blood Pressure Position [Left Arm] Sitting 02 Sat by Pulse Oximetry 98 Oxygen Delivery Method Room Air - Lab Data Lab results reviewed: Yes: I reviewed the patient's lab results. Lab Results 07/12/21 10:24: Strep Scn Rapid Clinic Negative Orders (Tests/Meds): ORDERS Category Date Time Status Strep Screen Confirmation Stat Micro 07/12/21 10:24 Received [facility] [place] HPI - General Stated complaint: sore throat Time Seen by Provider: 07/12/21 10:44 Mode of Arrival: Ambulatory Source of Information: Patient Limitations: No Limitations Description of Symptoms (Recalled from Triage Doc. by RN): PATIENT C/O SORE THROAT, COUGH AND HEADACHE THAT STARTED LAST MONDAY. SHE STATES SHE WAS SEEN ON MONDAY AND GIVEN ANTIBIOTICS, HOWEVER SAYS HER COUGH AND SORE THROAT ARE WORSE HEENT Symptoms (Recalled from RN notes): Yes Resp Symptoms (Recalled from RN notes): Yes Skin Symptoms (Recalled from RN notes): No MS Symptoms (Recalled from RN notes): No Functional Status (Recalled from RN notes): WNL - History of Present Illness Provider Complaint: Patient states that she started feeling bad last week States that she was seen on Monday and started on antibiotics States that she has been taking them but her sore throat and cough has not improved so she came back in and wanted to get tested for Strep throat agian - Related Data Home Medications Medication Instructions Recorded Confirmed levothyroxine 150 mcg tablet 150 mcg PO DAILY tab 11/03/20 07/12/21 Amoxicillin [Amoxicillin 500mg Tab] 500 mg PO TID 07/12/21 07/12/21 Previous Rx's Medication Instructions Recorded Brompheniramine/Pseudoephed/Dm 5 ml PO Q6HP PRN #240 ml 07/09/21 [Bromfed Dm Cough Syrup] Ondansetron [Zofran 4mg ODT] 4 mg PO DAILYP PRN #12 tab 07/09/21 Allergies Allergy/AdvReac Type Severity Reaction Status Date / Time No Known Allergies Allergy Verified 04/09/21 09:41 - Worker's Comp Is this a Worker's Comp case?: No [facility] History - Hepatitis A Screen Drug
[2021-07-12 11:00] VITALS: BP 109/83; PULSE 82; RESP 18; TEMP 36.7; O2SAT 98
== END 2021-07-12 11:06 | disposition home or self-care (01) ==
PROVIDERS: Emergency Provider Nurse Practitioner; PCP Family Medicine
DX: J02.9 Acute pharyngitis, unspecified (principal)
CPT/HCPCS: 87880; 99202; G0463

== ENCOUNTER → 2021-07-19 13:30 | Outpatient (CLI) | payer OTHER, SELFPAY ==
[2021-07-19 14:58] LABS: Free Thyroxine Index 2.3 ug/dL (5.93-13.13); T4 (Thyroxine) 7.8 ug/dl (5.53-11.0); Triiodothryronine (T3) Uptake 29 % (23.5-40.5)
== END ==
PROVIDERS: Visit Provider Nurse Practitioner Obstetrics & Gynecology
DX: Z20.822 Contact with and (suspected) exposure to COVID-19 (principal)
CPT/HCPCS: 36415; 84436; 84443; 84479

== ENCOUNTER 2021-07-21 13:13 | Emergency (ER) | payer OTHER, SELFPAY ==
[2021-07-21 13:17] VITALS: BP 103/70; PULSE 116; RESP 16; TEMP 36.6; O2SAT 98; BMI 35.4
--- NOTE | 2021-07-21 13:33 | HMH.EDUTC ---
[facility] [place] Disposition Clinical Impression: Vertigo Disposition: Home, Self-Care Condition on Discharge: Good Instructions: Vertigo, Migraine -- Adult, Meclizine Additional Instructions: Take medication as prescribed *Over the counter Motrin and/or Tylenol as directed on package for headache or body aches Return if needed Straight to ER if any life threatening symptoms Follow up with your Family Doctor as discussed if symptoms return or worsen Prescriptions: Meclizine HCl [Antivert 12.5mg tablet] 12.5 mg PO Q8HP PRN #20 tab PRN Reason: Dizziness Transmission Status: Received by [facility] Referrals: Provider,Referral, [Primary Care Provider] - As needed Forms: Work/School Release Time of Disposition: 14:20 Medical Decision Making - Dougie Inquiry Pt receiving controlled substance: No Dougie was queried for this patient: No Vital Signs: 07/21/21 13:17 07/21/21 13:43 Temperature 97.9 F 97.8 F Temperature Source Temporal Artery Scan Pulse Rate 110 H Pulse Rate [Left] 116 H Respiratory Rate 16 16 Blood Pressure 108/74 L Blood Pressure [Right Radial Artery] 103/70 L Blood Pressure Mean [Right Radial Artery] 81 02 Sat by Pulse Oximetry 98 - Lab Data Lab results reviewed: Yes: I reviewed the patient's lab results. Lab Results 07/21/21 13:22: Strep Scn Rapid Clinic Negative 07/21/21 13:24: Tst Clinic Negative Orders (Tests/Meds): ED MEDICATIONS Discontinued Medications Generic Name Dose Route Start Last Admin Trade Name Freq PRN Reason Stop Dose Admin Ketorolac Tromethamine 60 mg 07/21/21 13:49 07/21/21 13:53 Ketorolac 60mg/2ml Vial IM 07/21/21 13:50 60 mg ONCE ONE Administration Meclizine HCl 12.5 mg 07/21/21 13:50 07/21/21 13:53 Meclizine 12.5mg Tablet PO 07/21/21 13:51 12.5 mg ONCE ONE Administration ORDERS Category Date Time Status Strep Screen Confirmation Stat Micro 07/21/21 13:22 Received Medical Decision Narrative: Discussed with patient about transfer to the ED for further work up and testing and she declined states that she feels much better after the medication and she will follow up with her Family doctor if symptoms return [facility] [place] HPI - General Stated complaint: vomiting, headache Time Seen by Provider: 07/21/21 13:33 Mode of Arrival: Ambulatory Source of Information: Patient Limitations: No Limitations Description of Symptoms (Recalled from Triage Doc. by RN): pt c/o n/v, JONES, dizziness since yesterday. pt is unsure of LMP. HEENT Symptoms (Recalled from RN notes): Yes (JONES and dizziness) Resp Symptoms (Recalled from RN notes): No Skin Symptoms (Recalled from RN notes): No MS Symptoms (Recalled from RN notes): No Functional Status (Recalled from RN notes): na - History of Present Illness Provider Complaint: Patient states that she has been having headache off and on for several days States that she has also been having N/V states that this morning she had a little diarrhea and felt dizzy like the room was spinning when she would move or turn States that she is feeling a little better States that she has zofran at home for the nausea and vomiting but it didnt help much - Related Data Home Medications Medication Instructions Recorded Confirmed levothyroxine 150 mcg tablet 150 mcg PO DAILY tab 11/03/20 07/12/21 Amoxicillin [Amoxicillin 500mg Tab] 500 mg PO TID 07/12/21 07/12/21 Previous Rx's Medication Instructions Recorded Brompheniramine/Pseudoephed/Dm 5 ml PO Q6HP PRN #240 ml 07/09/21 [Bromfed Dm Cough Syrup] Ondansetron [Zofran 4mg ODT] 4 mg PO DAILYP PRN #12 tab 07/09/21 Meclizine HCl [Antivert 12.5mg 12.5 mg PO Q8HP PRN #20 tab 07/21/21 tablet] Allergies Allergy/AdvReac Type Severity Reaction Status Date / Time No Known Allergies Allergy Verified 04/09/21 09:41 - Worker's Comp Is this a Worker's Comp case?: No [facility] History - Hepatitis A Screen Drug use history?: No High
[2021-07-21 13:35] LABS: UTC Pregnancy Test, Urine Negative (Negative)
[2021-07-21 13:35] LABS: UTC Strep Screen (Rapid) Negative (Negative)
[2021-07-21 13:43] VITALS: BP 108/74; PULSE 110; RESP 16; TEMP 36.6
== END 2021-07-21 14:26 | disposition home or self-care (01) ==
PROVIDERS: Emergency Provider Nurse Practitioner
DX: R42 Dizziness and giddiness (principal); R11.10 Vomiting, unspecified; R51.9 Headache, unspecified; F41.8 Other specified anxiety disorders
CPT/HCPCS: 81025; 87880; 96372; 99202; G0463

== ENCOUNTER → 2021-08-16 14:59 | Outpatient (CLI) | payer OTHER, SELFPAY ==
[2021-08-18 08:16] LABS: Triiodothyronine (T3) Free 2.2 pg/mL (2.0-4.4)
== END ==
PROVIDERS: Visit Provider Otolaryngology
DX: E03.9 Hypothyroidism, unspecified (principal)
CPT/HCPCS: 36415; 84439; 84443; 84481

== ENCOUNTER → 2021-09-13 10:42 | Outpatient (CLI) | payer OTHER, SELFPAY | PROVIDERS: Visit Provider Nurse Practitioner | DX: Z20.822 Contact with and (suspected) exposure to COVID-19 (principal) | CPT/HCPCS: C9803; U0003; U0005 ==

== ENCOUNTER → 2021-11-18 15:10 | Outpatient (CLI) | payer OTHER, SELFPAY ==
[2021-11-18 16:59] LABS: HCG,Quantitative 30 mIU/ml (0-5.42)
== END ==
PROVIDERS: Visit Provider Nurse Practitioner Obstetrics & Gynecology
DX: N92.6 Irregular menstruation, unspecified (principal)
CPT/HCPCS: 36415; 84702

== ENCOUNTER 2021-11-21 18:43 | Emergency (ER) | payer OTHER, SELFPAY ==
[2021-11-21 18:45] VITALS: BP 106/67; PULSE 86; RESP 18; TEMP 36.8; O2SAT 100; BMI 35.5
[2021-11-21 19:05] LABS: UTC Pregnancy Test, Urine Negative (Negative)
[2021-11-21 19:05] LABS: UTC Strep Screen (Rapid) Negative (Negative)
--- NOTE | 2021-11-21 19:09 | HMH.EDUTC ---
[facility] [place] Disposition Clinical Impression: Sore throat (viral) Disposition: Home, Self-Care Condition on Discharge: Good Instructions: DI for Nausea -- Adult, Sore Throat Additional Instructions: *Monitor Temp, Over the counter Motrin or Tylenol as directed/as needed Tylenol every 4 hours and Motrin every 6 hours (as long as your family doctor has told you that you can take it) for fever or pain. and straight to ER if unable to lower temp less than 101.0 after medication given *Warm salt water gargles may help to soothe the throat *Throat Lozenges *Warm fluids like tea with honey may help to soothe the throat *Sleep elevated *Humidifier/Vaporizer Your throat swab was sent for culture. Those results are typically sent to your primary care. Be sure to follow up in 2-3 days with your family doctor/primary care physician if no improvement so they can review those result and treat if necessary. If you don?t have a primary care doctor, I recommend you get one but in the mean time, you will have to return to a walk in clinic Follow up IMMEDIATELY for new or worsening symptoms or no Noticeable improvement over the next 48-72 hours. 911 for difficulty breathing or swallowing Referrals: Qing Sorto [Primary Care Provider] - As needed Time of Disposition: 19:12 Medical Decision Making - Dougie Inquiry Pt receiving controlled substance: No Dougie was queried for this patient: No Vital Signs: 11/21/21 18:45 Temperature 98.3 F Temperature Source Oral Pulse Rate [Right Brachial] 86 Respiratory Rate 18 Blood Pressure [Right Arm] 106/67 L Blood Pressure Mean [Right Arm] 80 Blood Pressure Source [Right Arm] Automatic Cuff Blood Pressure Position [Right Arm] Sitting 02 Sat by Pulse Oximetry 100 Oxygen Delivery Method Room Air - Lab Data Lab results reviewed: Yes: I reviewed the patient's lab results. Lab Results 11/21/21 18:58: Strep Scn Rapid Clinic Negative 11/21/21 19:03: Tst Clinic Negative Orders (Tests/Meds): ORDERS Category Date Time Status Strep Screen Confirmation Stat Micro 11/21/21 18:58 Received [facility] [place] HPI - General Stated complaint: SORE THROAT Time Seen by Provider: 11/21/21 19:09 Mode of Arrival: Ambulatory Source of Information: Patient Limitations: No Limitations Description of Symptoms (Recalled from Triage Doc. by RN): PATIENT C/O NAUSEA AND SORE THROAT X 2 DAYS HEENT Symptoms (Recalled from RN notes): Yes Resp Symptoms (Recalled from RN notes): No Skin Symptoms (Recalled from RN notes): No MS Symptoms (Recalled from RN notes): No Functional Status (Recalled from RN notes): WNL - History of Present Illness Provider Complaint: Patient states that she has been having sore throat and nausea for about 2 days that has continued to get worse States that she also wanted to get a test because she has been having nausea and feeling tired - Related Data Home Medications Medication Instructions Recorded Confirmed levothyroxine 150 mcg tablet 300 mcg PO DAILY tab 08/16/21 11/21/21 Allergies Allergy/AdvReac Type Severity Reaction Status Date / Time No Known Allergies Allergy Verified 08/23/21 16:38 - Worker's Comp Is this a Worker's Comp case?: No H History - Hepatitis A Screen Drug use history?: No High risk sexual behaviors?: No History of sexually transmitted infection?: No Currently employed?: No Childcare worker?: No Do you have indoor plumbing?: Yes Do you have electricity?: Yes Attestation statement:: This patient has been screened for Hepatitis A risk factors. I have reviewed the patient's past medical history: Yes Medical History: Denies:: Anxiety, Depression, Migraine, Seizures Other Medical History: Reports: Hypothyroidism. Denies: Blood Transfusion Reaction Laterality Cases: Bilateral: Tonsillectomy Other Surgeries: Yes: Appendectomy, Cholecystectomy, Thyroidectomy, Other. No: Amputation: No Fractures: No
[2021-11-21 19:14] VITALS: BP 106/67; PULSE 86; RESP 18; TEMP 36.8; O2SAT 100
== END 2021-11-21 19:17 | disposition home or self-care (01) ==
PROVIDERS: Emergency Provider Nurse Practitioner; PCP Family Medicine
DX: J02.9 Acute pharyngitis, unspecified (principal); Z32.02 Encounter for pregnancy test, result negative
CPT/HCPCS: 81025; 87880; 99202; G0463

== ENCOUNTER → 2021-11-24 07:06 | Outpatient (CLI) | payer OTHER, SELFPAY ==
[2021-11-24 08:38] LABS: HCG,Quantitative 467 mIU/ml (0-5.42)
== END ==
PROVIDERS: Visit Provider Nurse Practitioner Obstetrics & Gynecology
DX: N92.6 Irregular menstruation, unspecified (principal)
CPT/HCPCS: 36415; 84702

== ENCOUNTER → 2021-12-15 14:58 | Outpatient (CLI) | payer OTHER, SELFPAY ==
[2021-12-15 15:24] LABS: Basophils % 1.1 % (0.1-2.0); Eosinophils # 0.1 K/mm3 (0.0-0.4); Eosinophils % 1.5 % (0.1-12.0); Hematocrit 39.1 % (37.0-47.0); Lymphocytes # 1.1 K/mm3 (0.7-4.5); Lymphocytes % 27.7 % (10-50); Mean Corpuscular HGB Conc 33.2 g/dL (31.8-35.4); Mean Corpuscular Hemoglobin 30.9 pg (27.0-31.2); Mean Corpuscular Volume 93.1 fl (81-99); Mean Platelet Volume 8.4 fl (7.4-10.4); Monocytes # 0.4 K/mm3 (0.1-1.0); Monocytes % 10.4 % (1.7-9.3); Neutrophils # 2.3 K/mm3 (1.8-7.8); Neutrophils % 59.3 % (37.0-80.0); Platelet Count 258 K/mm3 (142-424)
[2021-12-15 16:30] LABS: Free Thyroxine Index 5.5 ug/dL (5.93-13.13); T4 (Thyroxine) 14.8 ug/dl (5.53-11.0); Triiodothryronine (T3) Uptake 37 % (23.5-40.5)
[2021-12-15 16:44] LABS: Thyroid Stimulating Hormone 0.33 uIU/mL (0.465-4.68)
[2021-12-17 08:15] LABS: HIV Screen 4th Generation wRfx Non Reactive (Non Reactive); Rubella Antibodies, IgG 4.01 index (Immune >0.99)
[2021-12-17 11:23] LABS: Hepatitis B Surface Antigen Negative (Negative); Hepatitis C Antibody <0.1 s/co ratio (0.0-0.9); Rapid Plasma Reagin Ab Titer Non Reactive (NonRea<1:1)
== END ==
PROVIDERS: Visit Provider Nurse Practitioner Obstetrics & Gynecology
DX: Z34.90 Encounter for supervision of normal pregnancy, unspecified, unspecified trimester (principal); E03.9 Hypothyroidism, unspecified
CPT/HCPCS: 36415; 84436; 84443; 84479; 85025; 86592; 86703; 86762; 86850; 87340; 87380; G0432

== ENCOUNTER → 2021-12-21 10:31 | Outpatient (CLI) | payer OTHER, SELFPAY ==
--- NOTE | 2021-12-21 10:31 | US_ITS ---
FINAL REPORT CLINICAL HISTORY: for dates FINDINGS: Transvaginal sonographic images of the pelvis were obtained. There is a single living intrauterine . Average ultrasound age is 8 weeks 2 days. The yolk sac measures 0.45 cm. [place]-rump length measures 1.73 cm consistent with 8 week 2 day gestation. Heart rate is detected at 164 bpm. There is a 2 cm cyst in the left ovary, may represent a corpus luteum cyst. The right ovary is within normal limits. IMPRESSION: Single living intrauterine . Reviewed, Interpreted and Dictated by Torrey Barksdale MD Transcribed by Evita Gross Authenticated by Torrey Barksdale MD on 12/21/2021 01:53:51 PM [facility]
== END ==
PROVIDERS: PCP Family Medicine; Visit Provider Nurse Practitioner Obstetrics & Gynecology
DX: Z34.90 Encounter for supervision of normal pregnancy, unspecified, unspecified trimester (principal)
CPT/HCPCS: 76801

== ENCOUNTER → 2022-01-12 16:34 | Outpatient (CLI) | payer OTHER, SELFPAY | PROVIDERS: Visit Provider Nurse Practitioner Obstetrics & Gynecology | DX: Z31.430 Encounter of female for testing for genetic disease carrier status for procreative management (principal); Z36.0 Encounter for antenatal screening for chromosomal anomalies; O28.3 Abnormal ultrasonic finding on antenatal screening of mother | CPT/HCPCS: 36415 ==

== ENCOUNTER → 2022-02-07 15:53 | Outpatient (CLI) | payer OTHER, SELFPAY | PROVIDERS: Visit Provider Nurse Practitioner | DX: Z11.1 Encounter for screening for respiratory tuberculosis (principal) | CPT/HCPCS: 86580 ==

== ENCOUNTER → 2022-02-09 11:47 | Outpatient (CLI) | payer OTHER, SELFPAY | PROVIDERS: Visit Provider Nurse Practitioner Obstetrics & Gynecology | DX: Z31.430 Encounter of female for testing for genetic disease carrier status for procreative management (principal); Z36.0 Encounter for antenatal screening for chromosomal anomalies; O28.3 Abnormal ultrasonic finding on antenatal screening of mother | CPT/HCPCS: 36415 ==

== ENCOUNTER 2022-02-28 21:13 | Emergency (ER) | payer OTHER, SELFPAY ==
[2022-02-28 21:14] VITALS: BP 108/68; PULSE 95; RESP 22; TEMP 36.8; O2SAT 99; BMI 37.2
--- NOTE | 2022-02-28 21:41 | HMH.EDPREG ---
ED Disposition Clinical Impression: Headache Qualifiers: Headache type: unspecified Headache chronicity pattern: acute headache Intractability: not intractable Qualified Code(s): R51.9 - Headache, unspecified Qualifiers: Weeks of gestation: 18 weeks Qualified Code(s): Z3A.18 - 18 weeks gestation of Disposition: Home, Self-Care Condition on Discharge: Good Instructions: DI for -- Discomforts and Remedies Additional Instructions: fluids and call ob in am Referrals: Rey Yee MD [Primary Care Provider] - - Critical Care Critical Care Time: No Attestation: On 02/28/22, the high probability of a clinically significant, sudden or life threatening deterioration of the following system(s) required my full and direct attention, intervention and personal management. The time I documented below is in addition to time spent performing reported procedures but includes the following listed in this critical care notation. Medical Decision Making - Medical Records Medical records reviewed: Yes: I reviewed the patient's medical records. - Dougie Inquiry Pt receiving controlled substance: No Vital Signs: 02/28/22 21:14 Temperature 98.3 F Temperature Source Oral Pulse Rate [Left] 95 H Respiratory Rate 22 Blood Pressure [Right Arm] 108/68 L Blood Pressure Mean [Right Arm] 81 02 Sat by Pulse Oximetry 99 Oxygen Delivery Method Room Air - Lab Data Lab results reviewed: Yes: I reviewed the patient's lab results. Lab Results 02/28/22 21:30: WBC 6.9, RBC 4.25, Hgb 13.0, Hct 37.7, MCV 88.9, MCH 30.7, MCHC 34.5, RDW 14.7, Plt Count 245, MPV 8.7, Neut % (Auto) 61.6, Lymph % (Auto) 28.8, [place] % (Auto) 5.4, Eos % (Auto) 2.6, Baso % (Auto) 1.7, Neut # (Auto) 4.3, Lymph # (Auto) 2.0, [place] # (Auto) 0.4, Eos # (Auto) 0.2, Baso # (Auto) 0.1 02/28/22 21:30: Sodium 135 L, Potassium 3.4 L, Chloride 104, Carbon Dioxide 26, Anion Gap 8.4, BUN < 2 L, Creatinine 0.50 L, Estimated Creat Clear 254, Estimated GFR 148, Est GFR ( Amer) 179, Glucose 97, Calcium 9.6, Total Bilirubin 0.1 L, AST 21, ALT 17, Alkaline Phosphatase 62, Total Protein 6.3, Albumin 3.5, Globulin 2.8, Albumin/Globulin Ratio 1.3 02/28/22 23:34: Urine Color Yellow, Urine Appearance Clear, Urine pH 6.5, Ur Specific [place] 1.015, Urine Protein Negative, Urine Glucose (UA) Negative, Urine Ketones Negative, Urine Blood Negative, Urine Nitrate Negative, Urine Bilirubin Negative, Urine Urobilinogen 0.2, Ur Leukocyte Esterase Trace Result diagrams: 02/28/22 21:30 02/28/22 21:30 Orders (Tests/Meds): ED MEDICATIONS Generic Name Dose Route Start Last Admin Trade Name Freq PRN Reason Stop Dose Admin Sodium Chloride 500 mls @ 999 mls/hr 02/28/22 21:45 02/28/22 21:48 Sod Chlor 0.9% 1000ml Bag IV 02/28/22 22:15 999 mls/hr .Q31M HENRY Administration Sodium Chloride 1,000 mls @ 999 mls/hr 02/28/22 23:45 02/28/22 23:39 Sod Chlor 0.9% 1000ml Bag IV 03/01/22 00:45 999 mls/hr .Q1H1M HENRY Administration Discontinued Medications Generic Name Dose Route Start Last Admin Trade Name Freq PRN Reason Stop Dose Admin Lactulose 20 gm 02/28/22 22:24 Lactulose 20gm/30ml Udc PO 03/30/22 22:23 QID HENRY ORDERS Category Date Time Status UA [Urinalysis and Microscopic] Stat Lab 02/28/22 23:34 Results Medical Decision Narrative: pt with improvement after ivf HPI - General Chief complaint: Nausea/Vomiting/Diarrhea Stated complaint: 18 wk preg,vomiting,JONES Dizzy Time Seen by Provider: 02/28/22 21:41 Mode of Arrival: Ambulatory Source of Information: Patient, Medical Record Limitations: No Limitations Description of Symptoms (Recalled from ER Triage Doc. by RN): pt states that she has had n/v since this AM andhas been dizzy. pt states she has taked perscribed zorfan and promethazine with no relief. pt is 18wk 1 day - History of Present Illness HPI Narrative: 18 weeks preg with jones and
[2022-02-28 21:49] LABS: Basophils # 0.1 K/mm3 (0-0.2); Basophils % 1.7 % (0.1-2.0); Eosinophils # 0.2 K/mm3 (0.0-0.4); Eosinophils % 2.6 % (0.1-12.0); Hematocrit 37.7 % (37.0-47.0); Lymphocytes % 28.8 % (10-50); Mean Corpuscular HGB Conc 34.5 g/dL (31.8-35.4); Mean Corpuscular Hemoglobin 30.7 pg (27.0-31.2); Mean Corpuscular Volume 88.9 fl (81-99); Mean Platelet Volume 8.7 fl (7.4-10.4); Monocytes # 0.4 K/mm3 (0.1-1.0); Monocytes % 5.4 % (1.7-9.3); Neutrophils # 4.3 K/mm3 (1.8-7.8); Neutrophils % 61.6 % (37.0-80.0); Platelet Count 245 K/mm3 (142-424); Red Blood Count 4.25 M/mm3 (4.20-5.40); Red Cell Distribution Width 14.7 % (11.5-17.5); White Blood Count 6.9 K/mm3 (4.8-10.8)
[2022-02-28 21:52] LABS: Chloride 104 mmol/L (98-107); Potassium 3.4 mmoL/L (3.5-5.1); Sodium 135 mmol/L (136-145)
[2022-02-28 21:55] LABS: Alanine Aminotransferase 17 U/L (12-78); Albumin Level 3.5 g/dl (3.5-5.0); Albumin/Globulin Ratio 1.3 (1.1-1.8); Alkaline Phosphatase 62 U/L (38-126); Anion Gap 8.4 mEq/L (5-15); Aspartate Amino Transferase 21 U/L (14-36); Blood Urea Nitrogen < 2 mg/dl (7-17); Carbon Dioxide 26 mmol/L (22.0-30.0); Creatinine Clearance Estimated 254 mL/min (50-200); Estimated Glomerular Filt Rate 148 ml/min (>60); GFR (African American) 179 ML/MIN (>60); Globulin 2.8 g/dL (1.3-3.2); Total Protein,Serum 6.3 g/dl (6.3-8.2)
[2022-02-28 21:56] LABS: Calcium 9.6 mg/dl (8.4-10.2); Glucose 97 mg/dl (74-100)
[2022-02-28 22:05] LABS: Bilirubin,Total 0.1 mg/dl (0.2-1.3)
[2022-02-28 23:37] LABS: Microscopic, Urine URINE MICROSCOPIC (MICROSCOPIC)
[2022-02-28 23:39] LABS: Appearance,Urine CLEAR (Clear); Bilirubin,Urine Negative (Negative); Blood, Urine Negative (Negative); Color,Urine YELLOW (Yellow); Glucose,Urine (UA) Negative (Negative); Ketones,Urine Negative (Negative); Leukocyte Esterase,Urine TRACE (Negative); Nitrate,Urine Negative (Negative); PH,Urine 6.5 (5.0-8.5); Protein,Urine Negative (Negative); Specific Gravity, Urine 1.015 (1.005-1.030); Urobilinogen,Urine 0.2 EU/dl (0.2)
--- NOTE | 2022-02-28 23:39 | PC.NURSE ---
heart tones on fetus 149
[2022-02-28 23:59] LABS: Bacteria,Urine Trace /lpf; WBC,Urine Occasional #/hpf (0-3)
[2022-03-01 00:30] VITALS: BP 110/70; PULSE 78; RESP 18; TEMP 36.8; O2SAT 98
== END 2022-03-01 00:44 | disposition home or self-care (01) ==
PROVIDERS: Emergency Provider Emergency Medicine; PCP Nurse Practitioner Obstetrics & Gynecology
DX: O26.892 Other specified pregnancy related conditions, second trimester (principal); O21.9 Vomiting of pregnancy, unspecified; R19.7 Diarrhea, unspecified; E89.0 Postprocedural hypothyroidism; Z79.899 Other long term (current) drug therapy; Z82.49 Family history of ischemic heart disease and other diseases of the circulatory system; Z3A.18 18 weeks gestation of pregnancy; Z83.49 Family history of other endocrine, nutritional and metabolic diseases; Z82.5 Family history of asthma and other chronic lower respiratory diseases; Z80.9 Family history of malignant neoplasm, unspecified; Z83.3 Family history of diabetes mellitus
CPT/HCPCS: 80053; 81001; 85025; 99283

== ENCOUNTER → 2022-03-14 14:47 | Outpatient (CLI) | payer OTHER, SELFPAY ==
--- NOTE | 2022-03-14 14:49 | US_ITS ---
FINAL REPORT CLINICAL HISTORY: 20 weeks gestation FINDINGS: There is a single live intrauterine gestation. Presentation is cephalic. The cervix is closed and measures 4.8 cm. Placenta is posterior, high, grade 1. movement is noted. Heart rate is measured at 140 beats per minute. Three-vessel cord with satisfactory umbilical cord insertion. Four-chamber heart is noted. brain and ventricles are unremarkable. Chest and diaphragm are unremarkable. ABDOMEN: Both kidneys are unremarkable. Stomach is unremarkable. SPINE: No anomalies identified. Both arms and legs noted. AMNIOTIC FLUID: Appropriate amount. MEASUREMENTS: ULTRASOUND AGE: 19 weeks 6 days. GESTATION AGE: 20 weeks 1 days. ESTIMATED WEIGHT: 324 g GROWTH PERCENTILE: 36% BPD: 4.6 cm corresponding with 20 weeks 0 days. OFD: 5.8 cm corresponding with 20 weeks 0 days. HC: 16.4 cm corresponding with 19 weeks 2 days. AC: 14.1 cm corresponding with 20 weeks 0 days. FL: 3.3 cm corresponding with 20 weeks 1 days. HC/AC: 1.12 CI: 79% FL/BPD: 71% FL/AC: 22% IMPRESSION: Single living IUP with an ultrasound age of 19 weeks 6 days. Reviewed, Interpreted and Dictated by Javad Beach III, MD Transcribed by Bisi Hurtado Authenticated and [facility]
== END ==
PROVIDERS: Visit Provider Nurse Practitioner Obstetrics & Gynecology
DX: Z34.90 Encounter for supervision of normal pregnancy, unspecified, unspecified trimester (principal); Z3A.20 20 weeks gestation of pregnancy
CPT/HCPCS: 76811

== ENCOUNTER → 2022-04-19 09:08 | Outpatient (CLI) | payer OTHER, SELFPAY ==
[2022-04-19 09:35] LABS: Glucose,Fasting 94 mg/dl (74-100)
[2022-04-19 10:54] LABS: Thyroid Stimulating Hormone 0.25 uIU/mL (0.465-4.68)
[2022-04-19 11:04] LABS: Glucose 1 Hour 113 mg/dL (74-100)
== END ==
PROVIDERS: Visit Provider Obstetrics & Gynecology
DX: E03.9 Hypothyroidism, unspecified (principal); Z34.90 Encounter for supervision of normal pregnancy, unspecified, unspecified trimester
CPT/HCPCS: 36415; 82951; 84443

== ENCOUNTER 2022-04-28 12:18 | Outpatient (CLI) | payer OTHER, SELFPAY ==
[2022-04-28 14:40] VITALS: BP 110/71; PULSE 91; RESP 18; TEMP 36.7; O2SAT 99
== END 2022-04-28 15:10 | disposition home or self-care (01) ==
LOC: LAB 12:19
PROVIDERS: Visit Provider Nurse Practitioner Obstetrics & Gynecology
DX: Z34.90 Encounter for supervision of normal pregnancy, unspecified, unspecified trimester (principal)
CPT/HCPCS: 36415; 96372; J2790

== ENCOUNTER 2022-05-14 17:34 | Outpatient (CLI) | payer OTHER, SELFPAY ==
[2022-05-14 17:44] VITALS: BMI 35.4
[2022-05-14 17:51] LABS: Microscopic, Urine URINE MICROSCOPIC (MICROSCOPIC)
[2022-05-14 17:53] LABS: Appearance,Urine CLEAR (Clear); Bilirubin,Urine Negative (Negative); Blood, Urine Negative (Negative); Color,Urine YELLOW (Yellow); Glucose,Urine (UA) Negative (Negative); Ketones,Urine Negative (Negative); Leukocyte Esterase,Urine Negative (Negative); Nitrate,Urine Negative (Negative); Protein,Urine Negative (Negative); Specific Gravity, Urine 1.015 (1.005-1.030); Urobilinogen,Urine 0.2 EU/dl (0.2)
[2022-05-14 18:03] VITALS: BP 99/67; PULSE 103; RESP 16; TEMP 36.8; O2SAT 100; BMI 36.6
[2022-05-14 18:06] LABS: Barbiturates Screen,Urine Negative ng/ml (<200); Benzodiazepines Screen,Urine Negative ng/ml (<200)
[2022-05-14 18:07] LABS: Amphetamine/Metha Screen,Urine Negative ng/ml (<1000)
[2022-05-14 18:08] LABS: Cannabinoid Screen,Urine Negative ng/ml (<50); Cocaine Screen,Urine Negative ng/ml (<300)
[2022-05-14 18:09] LABS: Methadone Screen,Urine Negative ng/ml (<300)
[2022-05-14 18:10] LABS: Opiate Screen,Urine Negative ng/ml (<300); Phencyclidine Screen,Urine Negative ng/ml (<25)
== END 2022-05-14 18:48 | disposition home or self-care (01) ==
LOC: OBOUT 17:37 → OB 17:38
PROVIDERS: PCP Nurse Practitioner Obstetrics & Gynecology; Visit Provider Obstetrics & Gynecology
DX: O47.00 False labor before 37 completed weeks of gestation, unspecified trimester (principal); Z3A.28 28 weeks gestation of pregnancy
CPT/HCPCS: 59025; 80305; 81001; G0463

== ENCOUNTER → 2022-05-25 14:07 | Outpatient (CLI) | payer OTHER, SELFPAY ==
[2022-05-25 15:06] LABS: Basophils % 0.5 % (0.1-2.0); Eosinophils # 0.2 K/mm3 (0.0-0.4); Hematocrit 37.8 % (37.0-47.0); Hemoglobin 12.1 g/dL (12.2-16.2); Mean Corpuscular Hemoglobin 30.1 pg (27.0-31.2); Mean Corpuscular Volume 94.2 fl (81-99); Mean Platelet Volume 8.8 fl (7.4-10.4); Monocytes # 0.5 K/mm3 (0.1-1.0); Monocytes % 6.8 % (1.7-9.3); Neutrophils # 5.1 K/mm3 (1.8-7.8); Neutrophils % 64.6 % (37.0-80.0); Platelet Count 298 K/mm3 (142-424); Red Blood Count 4.01 M/mm3 (4.20-5.40); Red Cell Distribution Width 15.4 % (11.5-17.5); White Blood Count 7.9 K/mm3 (4.8-10.8)
[2022-05-25 16:19] LABS: Triiodothryronine (T3) Uptake 20 % (23.5-40.5)
[2022-05-25 16:32] LABS: Thyroid Stimulating Hormone 4.33 uIU/mL (0.465-4.68)
== END ==
PROVIDERS: PCP Nurse Practitioner Obstetrics & Gynecology; Visit Provider Nurse Practitioner Obstetrics & Gynecology
DX: E03.9 Hypothyroidism, unspecified (principal)
CPT/HCPCS: 36415; 84436; 84443; 84479; 85025

== ENCOUNTER 2022-06-18 11:07 | Outpatient (CLI) | payer OTHER, SELFPAY ==
[2022-06-18 11:48] VITALS: BMI 36.7
[2022-06-18 11:56] LABS: Microscopic, Urine URINE MICROSCOPIC (MICROSCOPIC)
[2022-06-18 12:02] LABS: Appearance,Urine CLEAR (Clear); Bilirubin,Urine Negative (Negative); Blood, Urine Negative (Negative); Color,Urine YELLOW (Yellow); Glucose,Urine (UA) Negative (Negative); Ketones,Urine Negative (Negative); Leukocyte Esterase,Urine 1+ (Negative); Nitrate,Urine Negative (Negative); PH,Urine 6.5 (5.0-8.5); Protein,Urine Negative (Negative); Urobilinogen,Urine 0.2 EU/dl (0.2)
[2022-06-18 12:07] LABS: Fetal Membrane Rupture (Rapid) Negative (Negative)
[2022-06-18 12:11] LABS: Benzodiazepines Screen,Urine Negative ng/ml (<200)
[2022-06-18 12:12] LABS: Amphetamine/Metha Screen,Urine Negative ng/ml (<1000); Barbiturates Screen,Urine Negative ng/ml (<200)
[2022-06-18 12:13] VITALS: BMI 36.7
[2022-06-18 12:13] LABS: Cannabinoid Screen,Urine Negative ng/ml (<50)
[2022-06-18 12:14] LABS: Cocaine Screen,Urine Negative ng/ml (<300); Methadone Screen,Urine Negative ng/ml (<300); Squamous Epithelial Cell,Urine Occasional #/hpf (0-5)
[2022-06-18 12:15] LABS: Opiate Screen,Urine Negative ng/ml (<300)
[2022-06-18 12:16] LABS: Phencyclidine Screen,Urine Negative ng/ml (<25)
== END 2022-06-18 12:40 | disposition home or self-care (01) ==
LOC: OBOUT 11:09 → OB 11:18
PROVIDERS: Referring Provider Nurse Practitioner Obstetrics & Gynecology; Visit Provider Obstetrics & Gynecology
DX: O26.893 Other specified pregnancy related conditions, third trimester (principal); Z3A.33 33 weeks gestation of pregnancy
CPT/HCPCS: 59025; 80305; 81001; 84112; 87086

== ENCOUNTER 2022-06-29 16:13 | Outpatient (CLI) | payer OTHER, SELFPAY ==
[2022-06-29 16:19] VITALS: BMI 37.1
[2022-06-29 16:34] LABS: Microscopic, Urine URINE MICROSCOPIC (MICROSCOPIC)
[2022-06-29 16:38] VITALS: BP 115/71; PULSE 91; RESP 17; TEMP 36.6; O2SAT 100; BMI 37.3
[2022-06-29 16:41] LABS: Appearance,Urine CLEAR (Clear); Bilirubin,Urine Negative (Negative); Blood, Urine Negative (Negative); Color,Urine YELLOW (Yellow); Glucose,Urine (UA) Negative (Negative); Ketones,Urine Negative (Negative); Leukocyte Esterase,Urine 1+ (Negative); Nitrate,Urine Negative (Negative); Protein,Urine Negative (Negative); Specific Gravity, Urine 1.015 (1.005-1.030); Urobilinogen,Urine 0.2 EU/dl (0.2)
[2022-06-29 16:54] LABS: Amphetamine/Metha Screen,Urine Negative ng/ml (<1000); Barbiturates Screen,Urine Negative ng/ml (<200)
[2022-06-29 16:55] LABS: Benzodiazepines Screen,Urine Negative ng/ml (<200)
[2022-06-29 16:56] LABS: Bacteria,Urine 3+ /lpf; Cannabinoid Screen,Urine Negative ng/ml (<50); Cocaine Screen,Urine Negative ng/ml (<300); RBC,Urine Occasional #/hpf (0-3)
[2022-06-29 16:57] LABS: Methadone Screen,Urine Negative ng/ml (<300)
[2022-06-29 16:58] LABS: Opiate Screen,Urine Negative ng/ml (<300); Phencyclidine Screen,Urine Negative ng/ml (<25)
== END 2022-06-29 17:40 | disposition home or self-care (01) ==
LOC: OBOUT 16:16 → OB 16:17
PROVIDERS: Visit Provider Obstetrics & Gynecology
DX: O36.8130 Decreased fetal movements, third trimester, not applicable or unspecified (principal); Z3A.35 35 weeks gestation of pregnancy
CPT/HCPCS: 59025; 80305; 81001; 87086; G0463

== ENCOUNTER → 2022-07-04 09:30 | Outpatient (CLI) | payer OTHER, SELFPAY | PROVIDERS: Visit Provider Nurse Practitioner Obstetrics & Gynecology | DX: Z34.90 Encounter for supervision of normal pregnancy, unspecified, unspecified trimester (principal) | CPT/HCPCS: 86403 ==

== ENCOUNTER 2022-07-08 10:14 | Outpatient (CLI) | payer OTHER, SELFPAY ==
[2022-07-08 10:29] VITALS: BMI 37.3
[2022-07-08 11:01] VITALS: BP 98/71; PULSE 110; RESP 18; TEMP 36.7; O2SAT 98; BMI 37.3
[2022-07-08 11:01] LABS: Microscopic, Urine URINE MICROSCOPIC (MICROSCOPIC)
[2022-07-08 11:05] LABS: Appearance,Urine SL CLOUDY (Clear); Bilirubin,Urine Negative (Negative); Blood, Urine Negative (Negative); Color,Urine YELLOW (Yellow); Glucose,Urine (UA) Negative (Negative); Ketones,Urine Negative (Negative); Leukocyte Esterase,Urine TRACE (Negative); Nitrate,Urine Negative (Negative); PH,Urine 6.5 (5.0-8.5); Protein,Urine Negative (Negative); Urobilinogen,Urine 0.2 EU/dl (0.2)
[2022-07-08 11:11] LABS: Fetal Membrane Rupture (Rapid) Negative (Negative)
--- NOTE | 2022-07-08 11:17 | US_ITS ---
FINAL REPORT CLINICAL HISTORY: position FINDINGS: TRANSABDOMINAL ULTRASOUND Single intrauterine is present with a gestational age of 36 weeks 5 days. Cardiac activity is confirmed at 142 beats per minute. There is an appropriate amount of amniotic fluid. Presentation is cephalic. The placenta is fundal. movement is noted. IMPRESSION: Thirty-six weeks 5 days gestation with appropriate amount of amniotic fluid. Reviewed, Interpreted and Dictated by Javad Beach III, MD Transcribed by Enrique Acosta Authenticated and [facility]
[2022-07-08 11:18] LABS: Amphetamine/Metha Screen,Urine Negative ng/ml (<1000)
[2022-07-08 11:19] LABS: Barbiturates Screen,Urine Negative ng/ml (<200); Benzodiazepines Screen,Urine Negative ng/ml (<200)
[2022-07-08 11:20] LABS: Cannabinoid Screen,Urine Negative ng/ml (<50)
[2022-07-08 11:21] LABS: Cocaine Screen,Urine Negative ng/ml (<300); Methadone Screen,Urine Negative ng/ml (<300)
[2022-07-08 11:22] LABS: Phencyclidine Screen,Urine Negative ng/ml (<25)
[2022-07-08 11:23] LABS: Opiate Screen,Urine Negative ng/ml (<300)
[2022-07-08 11:35] LABS: Bacteria,Urine Trace /lpf; WBC,Urine Occasional #/hpf (0-3)
== END 2022-07-08 11:50 | disposition home or self-care (01) ==
LOC: OBOUT 10:16 → OB 10:16
PROVIDERS: Nurse Practitioner Obstetrics & Gynecology; Visit Provider Obstetrics & Gynecology
DX: O26.893 Other specified pregnancy related conditions, third trimester (principal); Z3A.36 36 weeks gestation of pregnancy
CPT/HCPCS: 59025; 76815; 80305; 81001; 84112; G0463

== ENCOUNTER 2022-07-24 16:50 | Inpatient (IN) | payer OTHER, SELFPAY ==
[2022-07-24 17:02] VITALS: BMI 33.2
[2022-07-24 17:43] LABS: Microscopic, Urine URINE MICROSCOPIC (MICROSCOPIC)
[2022-07-24 17:45] LABS: Coronavirus 19, PCR Not Detected (NotDetected); Influenza A, PCR Not Detected (NotDetected); Influenza B, PCR Not Detected (NotDetected)
[2022-07-24 17:46] LABS: Basophils % 0.5 % (0.1-2.0); Eosinophils # 0.2 K/mm3 (0.0-0.4); Eosinophils % 2.2 % (0.1-12.0); Hematocrit 37.6 % (37.0-47.0); Hemoglobin 12.5 g/dL (12.2-16.2); Lymphocytes # 2.5 K/mm3 (0.7-4.5); Lymphocytes % 31.8 % (10-50); Mean Corpuscular HGB Conc 33.1 g/dL (31.8-35.4); Mean Corpuscular Hemoglobin 30.7 pg (27.0-31.2); Mean Corpuscular Volume 92.5 fl (81-99); Monocytes # 0.4 K/mm3 (0.1-1.0); Monocytes % 5.6 % (1.7-9.3); Neutrophils # 4.7 K/mm3 (1.8-7.8); Neutrophils % 59.9 % (37.0-80.0); Platelet Count 279 K/mm3 (142-424); Red Blood Count 4.06 M/mm3 (4.20-5.40); Red Cell Distribution Width 15.8 % (11.5-17.5); White Blood Count 7.9 K/mm3 (4.8-10.8)
[2022-07-24 18:03] LABS: Amphetamine/Metha Screen,Urine Negative ng/ml (<1000); Barbiturates Screen,Urine Negative ng/ml (<200); Benzodiazepines Screen,Urine Negative ng/ml (<200); Cannabinoid Screen,Urine Negative ng/ml (<50); Cocaine Screen,Urine Negative ng/ml (<300); Methadone Screen,Urine Negative ng/ml (<300); Opiate Screen,Urine Negative ng/ml (<300)
[2022-07-24 18:04] LABS: Phencyclidine Screen,Urine Negative ng/ml (<25)
[2022-07-24 18:06] VITALS: BP 109/75; PULSE 100; RESP 19; TEMP 37.1; O2SAT 97; BMI 37.6
[2022-07-24 18:07] LABS: Bacteria,Urine Trace /lpf; Squamous Epithelial Cell,Urine 50-100 #/hpf (0-5)
[2022-07-24 18:08] LABS: Amorphous Sediment,Urine Trace /lpf; Mucus,Urine Trace /lpf
[2022-07-24 18:29] LABS: Appearance,Urine SL CLOUDY (Clear); Bilirubin,Urine Negative (Negative); Blood, Urine Negative (Negative); Color,Urine YELLOW (Yellow); Glucose,Urine (UA) Negative (Negative); Ketones,Urine Negative (Negative); Leukocyte Esterase,Urine Negative (Negative); Nitrate,Urine Negative (Negative); Protein,Urine TRACE (Negative); Specific Gravity, Urine >= 1.030 (1.005-1.030); Urobilinogen,Urine 0.2 EU/dl (0.2)
--- NOTE | 2022-07-25 07:18 | HMH.PHAINT1 ---
Pharmacy Intervention Comments: MEDICATION RECONCILIATION COMPLETED ON PATIENT USING EXTERNAL FILL HISTORY FROM PHARMACY. -SHANTA KUMAR, JANELD
[2022-07-25 08:19] VITALS: BP 114/79; PULSE 76; RESP 17; TEMP 36.6; O2SAT 100
--- NOTE | 2022-07-25 08:39 | EXP.LABOR.NO ---
Labor Note Subjective: Date: 07/25/22 Time: 08:39 regular contraction Objective: NST:: Reactive Contractions:: every 2-3 minutes Cervical Dilation:: 2 Effacement:: 50% Station: -3 Membranes: artificially ruptured Comment:: I ruptured her membranes and there was a small amount of clear fluid. Fetus: Monitoring?: Yes monitoring type:: Internal and External Comment:: I inserted an IUPC. Assessment: Labor progressing?: Yes Cephalopelvic disproportion?: No All Active Problems (Updated 07/18/22 @ 09:25 by Rey Yee MD) Vertigo (Acute) (Acute) Hypothyroidism (Acute) Rh negative state in antepartum period (Acute) Breech presentation (Acute) contractions (Acute) Plan: Anesthesia for epidural?: Yes Continue to labor down?: Yes Plan for ?: No Continue to monitor?: Yes Start pushing?: No
--- NOTE | 2022-07-25 08:40 | EXP.HP ---
History of Present Illness *Admission Date: 07/25/22 *Reason for visit:: Term previous vaginal delivery *History of present illness: She is a 26-year-old 2 para 1 at 39+ weeks gestational age. She is had a previous vaginal delivery and because of her 's work schedule she wanted to be induced at term. [facility] Medical History contractions Surgical History History of appendectomy History of thyroidectomy History of tonsillectomy and adenoidectomy Hx of cholecystectomy Family History No significant family history Social History Smoking Status: Never smoker alcohol intake: never substance use type: denies use current occupational status: employed Travel in the last 8 weeks: None household members: spouse marital status: number of children: 1 service: No halfway: No sexually active: Yes Review of Systems Review of Systems Review of systems:: pertinent systems reviewed and negative unless documented below Meds Home Medications and Allergies Home Medications Medication Instructions Recorded Confirmed Type vit no.95-ferrous 1 tab PO DAILY Diet supplement 07/08/22 07/24/22 History fumarate 28 mg-folic acid 800 mcg tablet () levothyroxine 150 mcg tablet 150 mcg PO DAILY THYROID 07/25/22 07/25/22 History New Prescriptions to Start Prescriptions: Allergies Allergy/AdvReac Type Severity Reaction Status Date / Time No Known Allergies Allergy Verified 07/18/22 08:54 Exam Data for Last 24 hours Vital signs and Labs for Last 24 Hours: Temp Pulse Resp BP Pulse Ox 98.7 F 100 H 19 109/75 L 97 07/24/22 18:06 07/24/22 18:06 07/24/22 18:06 07/24/22 18:06 07/24/22 18:06 Laboratory Results - last 24 hr 07/24/22 17:30: WBC 7.9, RBC 4.06 L, Hgb 12.5, Hct 37.6, MCV 92.5, MCH 30.7, MCHC 33.1, RDW 15.8, Plt Count 279, MPV 9.0, Neut % (Auto) 59.9, Lymph % (Auto) 31.8, [place] % (Auto) 5.6, Eos % (Auto) 2.2, Baso % (Auto) 0.5, Neut # (Auto) 4.7, Lymph # (Auto) 2.5, [place] # (Auto) 0.4, Eos # (Auto) 0.2, Baso # (Auto) 0.0 07/24/22 17:30: Urine Color Yellow, Urine Appearance Sl cloudy, Urine pH 6.0, Ur Specific [place] >= 1.030, Urine Protein Trace, Urine Glucose (UA) Negative, Urine Ketones Negative, Urine Blood Negative, Urine Nitrate Negative, Urine Bilirubin Negative, Urine Urobilinogen 0.2, Ur Leukocyte Esterase Negative, Ur Squamous Epith Cells 50-100, Amorphous Sediment Trace, Urine Bacteria Trace, Urine Mucus Trace 07/24/22 17:30: SARS-CoV-2 (PCR) Not detected, Influenza A Untype (PCR) Not detected, Influenza Type B (PCR) Not detected 07/24/22 17:30: Urine Opiates Screen Negative, Urine Methadone Screen Negative, Ur Barbituates Screen Negative, Ur Phencyclidine Scrn Negative, Ur Amphetamines Screen Negative, U Benzodiazepines Scrn Negative, Urine Cocaine Screen Negative, U Marijuana (THC) Screen Negative 07/24/22 17:30: Blood Type O Negative, Antibody Screen Negative I & O for Last 24 hours: Intake & Output 07/22/22 07/23/22 07/24/22 07/25/22 11:59 11:59 11:59 11:59 Weight 206 lb Constitutional Constitutional: no acute distress *Routine HEENT Exam Head: Present normocephalic Eye: Present EOMI and PERRL ENT: Present mucous membranes moist *Routine Neck Exam Neck: Present supple; Absent lymphadenopathy *Routine Respiratory Exam Respiratory: Present CTA bilaterally *Routine Cardiovascular Exam Cardiovascular: Present RRR *Routine Abdominal Exam Abdominal: Present soft and normoactive bowel sounds; Absent tenderness *Routine Rectal Exam Rectal:: deferred *Routine Genitalia Exam Genitalia:: normal female and deferred *Routine Extremities Exam Extremities: Absent cyanosis, clubbing or edema *Rout
--- NOTE | 2022-07-25 09:41 | P.PN_ITS ---
PFSH PFSH Medical History contractions Surgical History History of appendectomy History of thyroidectomy History of tonsillectomy and adenoidectomy Hx of cholecystectomy Family History Other No significant family history Social History Smoking Status: Never smoker alcohol intake: never substance use type: denies use current occupational status: employed Travel in the last 8 weeks: None household members: spouse marital status: number of children: 1 service: No long-term: No sexually active: Yes [facility] Anesthesia Checklist Patient Identification Patient Identification: Arm Band and Verbal (Name & ) Structural Data Admitted From: Inpatient Planned Operative Procedure/s: Labor epidural Consent for Planned Operative Procedure(s) Verified: Yes NPO Status Verified Time NPO: 00:00 Chart Verification Results Verified: CBC Additional verifications Patient : Yes Anesthesia Reactions: No Hx Blood Transfusions: No Blood Transfusion Reaction: No Airway Assessment C-Spine Mobility Assessed: Yes TMJ Mobility Assessed: Yes Dentition: Good Dentition Neurological Assessment Level of Consciousness: Awake Hx Seizures: No Numbness or tingling in extremities: No Anesthesia Plan Anesthesia Risk discussed: Yes Anesthesia Plan: Verified ASA Class: II Anesthesia Type: Epidural
--- NOTE | 2022-07-25 10:52 | EXP.LABOR.NO ---
Labor Note Subjective: Date: 07/25/22 Time: 10:52 regular contraction Objective: NST:: Reactive Contractions:: every 2-3 minutes Cervical Dilation:: 3-4 Effacement:: 75% Station: -2 Membranes: artificially ruptured Fetus: Monitoring?: Yes monitoring type:: Internal and External Assessment: Labor progressing?: Yes Cephalopelvic disproportion?: No All Active Problems (Updated 07/25/22 @ 08:41 by Rey Yee MD) Term delivered (Acute) Vertigo (Acute) (Acute) Hypothyroidism (Acute) Rh negative state in antepartum period (Acute) Breech presentation (Acute) contractions (Acute) Plan: Anesthesia for epidural?: Yes Continue to labor down?: Yes Plan for ?: No Continue to monitor?: Yes Start pushing?: No
--- NOTE | 2022-07-25 13:57 | EXP.LABOR.NO ---
Labor Note Subjective: Date: 07/25/22 Time: 13:57 regular contraction Objective: NST:: Reactive Contractions:: every 2-3 minutes Cervical Dilation:: 4-5 Effacement:: 50% Station: -2 Membranes: artificially ruptured Fetus: Monitoring?: Yes monitoring type:: Internal and External Assessment: Labor progressing?: Yes Cephalopelvic disproportion?: No All Active Problems (Updated 07/25/22 @ 08:41 by Rey Yee MD) Term delivered (Acute) Vertigo (Acute) (Acute) Hypothyroidism (Acute) Rh negative state in antepartum period (Acute) Breech presentation (Acute) contractions (Acute) Plan: Anesthesia for epidural?: Yes Continue to labor down?: Yes Plan for ?: No Continue to monitor?: Yes Additional information:: She has dilated a little more but there has been no head descent. We will continue to see how she does over the next few hours. Her last baby was only 6 pounds 5 ounces.
--- NOTE | 2022-07-25 15:40 | EXP.LABOR.NO ---
Labor Note Subjective: Date: 07/25/22 Time: 15:40 Objective: NST:: Reactive Contractions:: every 2-3 minutes Cervical Dilation:: 5 Effacement:: 75% Station: -1 Membranes: artificially ruptured Fetus: Monitoring?: Yes monitoring type:: Internal and External Assessment: Labor progressing?: Yes Cephalopelvic disproportion?: No All Active Problems (Updated 07/25/22 @ 08:41 by Rey Yee MD) Term delivered (Acute) Vertigo (Acute) (Acute) Hypothyroidism (Acute) Rh negative state in antepartum period (Acute) Breech presentation (Acute) contractions (Acute) Plan: Anesthesia for epidural?: Yes Continue to labor down?: Yes Plan for ?: No Continue to monitor?: Yes Start pushing?: No Additional information:: Her cervix has thinned out and the baby's head has come down. I had her bear down to the baby's head comes down about an inch. We will continue with her oxytocin. She is doing well. The nonstress test is reactive. We will expect a vaginal delivery.
--- NOTE | 2022-07-25 15:59 | EXP.SURG.PN ---
Subjective Narrative: Patient states that she feels better other than some abdominal soreness. Tolerating diet. Exam Data for Last 24 hours Vital signs and Labs for Last 24 Hours: Temp Pulse Resp BP Pulse Ox 97.9 F 76 17 114/79 100 07/25/22 08:19 07/25/22 08:19 07/25/22 08:19 07/25/22 08:19 07/25/22 08:19 Laboratory Results - last 24 hr 07/24/22 17:30: WBC 7.9, RBC 4.06 L, Hgb 12.5, Hct 37.6, MCV 92.5, MCH 30.7, MCHC 33.1, RDW 15.8, Plt Count 279, MPV 9.0, Neut % (Auto) 59.9, Lymph % (Auto) 31.8, [place] % (Auto) 5.6, Eos % (Auto) 2.2, Baso % (Auto) 0.5, Neut # (Auto) 4.7, Lymph # (Auto) 2.5, [place] # (Auto) 0.4, Eos # (Auto) 0.2, Baso # (Auto) 0.0 07/24/22 17:30: Urine Color Yellow, Urine Appearance Sl cloudy, Urine pH 6.0, Ur Specific [place] >= 1.030, Urine Protein Trace, Urine Glucose (UA) Negative, Urine Ketones Negative, Urine Blood Negative, Urine Nitrate Negative, Urine Bilirubin Negative, Urine Urobilinogen 0.2, Ur Leukocyte Esterase Negative, Ur Squamous Epith Cells 50-100, Amorphous Sediment Trace, Urine Bacteria Trace, Urine Mucus Trace 07/24/22 17:30: SARS-CoV-2 (PCR) Not detected, Influenza A Untype (PCR) Not detected, Influenza Type B (PCR) Not detected 07/24/22 17:30: Urine Opiates Screen Negative, Urine Methadone Screen Negative, Ur Barbituates Screen Negative, Ur Phencyclidine Scrn Negative, Ur Amphetamines Screen Negative, U Benzodiazepines Scrn Negative, Urine Cocaine Screen Negative, U Marijuana (THC) Screen Negative 07/24/22 17:30: Blood Type O Negative, Antibody Screen Negative I & O for Last 24 hours: Intake & Output 07/23/22 07/24/22 07/25/22 07/26/22 11:59 11:59 11:59 11:59 Weight 206 lb *Routine Abdominal Exam Abdominal: Present soft Comments: Incisions clean Progress Note: A&P Assessment and plan (1) Rh negative state in antepartum period: Status: Acute (2) Term delivered: Status: Acute
--- NOTE | 2022-07-25 17:18 | EXP.LABOR.NO ---
Labor Note Subjective: Date: 07/25/22 Time: 17:18 regular contraction Objective: NST:: Reactive Contractions:: every 2-3 minutes Cervical Dilation:: 5-6 Effacement:: 80% Station: -2 Membranes: artificially ruptured Fetus: Monitoring?: Yes monitoring type:: Internal Comment:: I inserted a scalp clip. She also has an IUPC. Assessment: Labor progressing?: No Cephalopelvic disproportion?: Yes All Active Problems (Updated 07/25/22 @ 08:41 by Rey Yee MD) Term delivered (Acute) Vertigo (Acute) (Acute) Hypothyroidism (Acute) Rh negative state in antepartum period (Acute) Breech presentation (Acute) contractions (Acute) Plan: Anesthesia for epidural?: Yes Continue to labor down?: Yes Plan for ?: Yes Continue to monitor?: Yes Start pushing?: No Additional information:: She really has not progressed much over the last couple of hours. I inserted a scalp clip. We will see how she does over the next couple of hours. If she does not progress much more than we will go ahead and do a . Baby's head still remains reasonably high.
--- NOTE | 2022-07-25 19:45 | EXP.LABOR.NO ---
Labor Note Subjective: Date: 07/25/22 Time: 19:45 regular contraction Objective: Contractions:: every 2-3 minutes Cervical Dilation:: 7-8 Effacement:: 100% Station: -1 Membranes: artificially ruptured Fetus: Monitoring?: Yes monitoring type:: Internal Assessment: Labor progressing?: Yes Cephalopelvic disproportion?: No All Active Problems (Updated 07/25/22 @ 08:41 by Rey Yee MD) Term delivered (Acute) Vertigo (Acute) (Acute) Hypothyroidism (Acute) Rh negative state in antepartum period (Acute) Breech presentation (Acute) contractions (Acute) Plan: Anesthesia for epidural?: Yes Continue to labor down?: Yes Plan for ?: No Continue to monitor?: Yes Start pushing?: No Comment:: She is 7-8 cm 100% effaced and the baby's head comes down well with a contraction. There is some molding of the head but no caput. We will continue to increase her oxytocin and get her contractions a little closer together. We will expect a vaginal delivery.
--- NOTE | 2022-07-25 20:34 | P.PCN_ITS ---
Delivery Note Delivery Date:: 07/25/22 Delivery Time:: 20:42 Anesthesia Type: Epidural Was labor medically induced?: Yes Induction method: per pitocin protocol Gestational age (weeks): 39 delivered prior to 39 weeks?: No Infant Gender: Female at 1 minute: 7 at 5 minutes: 9 LAC or MLE?: LAC Delivery Procedure:: She is a 26-year-old 2 para 1 at 39+ weeks gestational age. She requested induction of labor at term. She was started on IV oxytocin had rumors ruptured and under labor epidural progressed to full dilation. She delivered spontaneously a liveborn female child at 8:24 PM in the evening of July 25, 2024. On delivery the head it was noted that there was a tight nuchal cord. I was able to deliver the anterior shoulder and the rest the 's body atraumatically. I was then able to disentangle the cord from the neck. The oropharynx and nasopharynx were bulb suction. The baby was vigorous and we allowed the cord to continue to pulsate for approximately 1 minute. The cord was then doubly clamped and cut and the was placed on the mother's abdomen for further care. The nurses assigned Apgars of 7 at 1 minute and 9 at 5 minutes. We then obtained cord blood. She received IV oxytocin. Using gentle traction on the cord and countertraction on the fundus I was able to easily deliver the placenta intact 3 minutes after delivery. It had a normal three-vessel cord. She had a small posterior vaginal laceration that was repaired with a single [id number] 3-0 Vicryl Rapide suture. She has O Rh- blood, she is well immune and was group B streptococcus negative. Estimated blood loss was approxi mately 200 cc. Laceration:: vaginal Placental Delivery Description: Spontaneous
[2022-07-26 07:37] LABS: Hematocrit 38.1 % (37.0-47.0); Hemoglobin 12.7 g/dL (12.2-16.2)
--- NOTE | 2022-07-26 11:32 | EXP.ACUTE.PN ---
Subjective *Date: 07/26/22 *Time: 11:32 Interval history: She is doing very well this morning. She is eating and drinking and ambulating. She denies any pain. Her lochia is normal. She is bottlefeeding. Medical Exam Vital signs and Labs for Last 24 Hours: Laboratory Results - last 24 hr 07/26/22 06:45: Hgb 12.7, Hct 38.1 07/26/22 06:45: Screen Negative, Baby's Rh Status Unknown, Rhogam Infusion Rhogam release I & O for Labs for Last 24 Hours: Intake & Output 07/23/22 07/24/22 07/25/22 07/26/22 11:59 11:59 11:59 11:59 Weight 206 lb Head: Present normocephalic ENT: Present normal exam Respiratory: Present normal respiratory effort Assessment and Plan *Assessment and plan (1) Term delivered: Status: Acute Category: Medical Code(s): O80 - Encounter for full-term uncomplicated delivery (2) Rh negative state in antepartum period: Status: Acute Category: Medical Code(s): O26.899 - Other specified related conditions, unspecified trimester; Z67.91 - Unspecified blood type, Rh negative Plan She is doing very well and we will plan to send her home tomorrow.
--- NOTE | 2022-07-27 09:01 | EXP.DC.SUM ---
General Admission date:: 07/24/22 Discharge date: 07/27/22 HPI HPI HPI: She is a 26-year-old 2 para 1 at 39+ weeks gestational age. She is had a previous vaginal delivery and because of her 's work schedule she wanted to be induced at term. Hospital Course Hospital Course Hospital Course: She was started on IV oxytocin had her membranes ruptured. She progressed to full dilation and delivered spontaneously a liveborn female child at 8:24 PM in the evening of July 25, 2022. The baby weighed 6 pounds 15 ounces and was 19 inches long. She had Apgars of 7 at 1 minute and 9 at 5 minutes. She has done well and has remained afebrile throughout her hospitalization. She is eating and drinking and ambulating. She is bottlefeeding. Her lochia is normal. She has O Rh- blood and the baby was Rh- so she did not require RhoGAM. She is rubella immune and was group B streptococcus negative. She is discharged home to follow-up with me in approximately 2 weeks time. She will continue with her vitamins and iron. She is given the usual instructions with respect to limiting her activity, driving and sexual activity. Exam Data for Last 24 hours Vital signs and Labs for Last 24 Hours: Temp Pulse Resp BP Pulse Ox 97.9 F 76 17 114/79 100 07/25/22 08:19 07/25/22 08:19 07/25/22 08:19 07/25/22 08:19 07/25/22 08:19 Laboratory Results - last 24 hr 07/26/22 06:45: Screen Negative, Baby's Rh Status Unknown, Rhogam Infusion Rhogam release I & O for Last 24 hours: Intake & Output 07/24/22 07/25/22 07/26/22 07/27/22 11:59 11:59 11:59 11:59 Weight 206 lb Constitutional Constitutional: no acute distress *Routine HEENT Exam Head: Present normocephalic *Routine Respiratory Exam Respiratory: Present normal respiratory effort Results Data Completed and Pending Labs on day of discharge: Labs from last 24 hours 07/26/22 06:45 Screen Negative Baby's Rh Status Unknown Rhogam Infusion Rhogam release DS: Diagnosis Discharge Diagnosis (1) Term delivered: Status: Acute (2) Rh negative state in antepartum period: Status: Acute Meds Home Medications and Allergies Home Medications Medication Instructions Recorded Confirmed Type vit no.95-ferrous 1 tab PO DAILY Diet supplement 07/08/22 07/24/22 History fumarate 28 mg-folic acid 800 mcg tablet () levothyroxine 150 mcg tablet 150 mcg PO DAILY THYROID 07/25/22 07/25/22 History New Prescriptions to Start Prescriptions: Allergies Allergy/AdvReac Type Severity Reaction Status Date / Time No Known Allergies Allergy Verified 07/18/22 08:54 Discharge Plan Disposition Patient Disposition: Home, Self-Care Condition: Good Discharge Order Discharge Orders: Discharge Order (Routine); Ordered 07/27/22 Ordered By: Rey Yee Follow up Plan Follow up with: Rey eYe MD [Primary Care Provider] - 08/08/22 9:45 am Prescriptions/Medication Reconciliation: Continued PNV cmb#95-ferrous fumarate-FA [] 28 mg iron- 800 mcg tablet 1 tab PO DAILY levothyroxine 150 mcg tablet 150 mcg PO DAILY Problem Reconciliation Problems Reviewed?: Yes Patient Discharge Instructions ACTIVITY: No heavy lifting DIET: continue same diet Additional Instructions: Nothing in the vagina for 6 weeks No heavy lifting. Patient Instructions: Depression, Hemorrhage, DI for Labor and Delivery, Vaginal , DI for Pre-eclampsia, [facility] Post Discharge Instructions, Preventing the Spread of Coronavirus Discharge Instructions Providers Primary Care Provider: Rey Yee Admit Provider: Rey Yee Attending Provider: Rey Yee
== END 2022-07-27 11:10 | disposition home or self-care (01) | DRG 807 ==
PROVIDERS: Admitting Provider Nurse Practitioner Obstetrics & Gynecology; PCP Nurse Practitioner Obstetrics & Gynecology; Visit Provider Nurse Practitioner Obstetrics & Gynecology
DX: Z37.0 Single live birth; O99.284 Endocrine, nutritional and metabolic diseases complicating childbirth; O70.0 First degree perineal laceration during delivery; Z3A.39 39 weeks gestation of pregnancy; O69.81X0 Labor and delivery complicated by cord around neck, without compression, not applicable or unspecified; O69.89X0 Labor and delivery complicated by other cord complications, not applicable or unspecified
CPT/HCPCS: 59409; 36415; 59025; 80305; 81001; 85014; 85018; 85025; 85461; 86850; 94761; C1758; C9803; G0283; J0595; J2405; J2790; U0003; U0005

== ENCOUNTER 2022-12-12 20:09 | Emergency (ER) | payer OTHER, SELFPAY ==
--- NOTE | 2022-12-12 20:18 | PC.NURSE ---
patient back in room
[2022-12-12 20:28] VITALS: BMI 37.8
[2022-12-12 20:30] VITALS: BP 107/72; PULSE 84; RESP 20; TEMP 36.6; O2SAT 98; BMI 37.8
--- NOTE | 2022-12-12 21:11 | HMH.EDEYEP ---
Discharge Plan Disposition Patient Disposition: Home, Self-Care Prescriptions Prescriptions: New clindamycin HCl 300 mg capsule 300 mg PO Q8H 7 Days Qty: 21 0RF No Action bupropion HCl 150 mg tablet extended release 24 hr 150 mg PO DAILY Qty: 30 3RF Mirena 21 mcg/24 hours (8 yrs) 52 mg intrauterine device intrauterine naproxen 500 mg tablet 500 mg PO BID Qty: 120 4RF amoxicillin-pot clavulanate 875-125 mg tablet 1 tab PO BID Qty: 20 0RF PNV cmb#95-ferrous fumarate-FA [] 28 mg iron- 800 mcg tablet 1 tab PO DAILY levothyroxine 150 mcg tablet 150 mcg PO DAILY Referrals Follow up/Referrals: Provider,Referral, [Primary Care Provider] - See instructions Clinical Impressions Clinical Impression: Acute iritis, Hordeolum externum (stye) Instructions Patient Instructions: DI for Eye Pain Discharge ED Provider: Mehul (ED)Sukh Eye Problem HPI General Chief complaint: Eye Problems Stated complaint: right eye swollen, can't see out of it, headache Time Seen by Provider: 12/12/22 21:11 Mode of Arrival: Ambulatory Source of Information: Patient and Medical Record Limitations: No Limitations Description of Symptoms (Recalled from ER Triage Doc. by RN): Pt arrives to er via private vehicle. Pt states that monday she woke up with right sided eye redness so she used an otc stye cream and slept in it. States Monday she noticed worsening redness and when she woke up this morning there was swelling in her bottom lid and her vision was blurry with worsening vision. Patient went to [facility] and was given an antibiotic and dx c pink eye and told to come to er with any eye swelling. Patient has had 2 doses of her antibiotic and states that the swelling has worsened in her lower eye lid and her vision in her right eye has worsened and now has a headache. History of Present Illness HPI Narrative: hx of recurrent styes to rt eye - usually require no treatment but has rt lat eye swelling and saw pcp and has been given abx - no hx of mrsa - and no contacts but c/o of light sensitivity and blurred vision chief complaint: eye pain and vision change Onset (ago): hour(s) Onset description: gradual Duration: constant Location: right eye Eye Symptoms: blurry vision and photophobia Place: home Severity: moderate Associated symptoms: headache Treatments Prior to Arrival: other (abx) Related Data Home Medications Medication Instructions Recorded Confirmed vit no.95-ferrous 1 tab PO DAILY Diet supplement 07/08/22 12/12/22 fumarate 28 mg-folic acid 800 mcg tablet () levothyroxine 150 mcg tablet 150 mcg PO DAILY THYROID 07/25/22 12/12/22 levonorgestrel 21 mcg/24 hours (8 intrauterine 11/08/22 12/12/22 yrs) 52 mg intrauterine device (Mirena) Previous Rx's Medication Instructions Recorded bupropion HCl 150 mg 24 hr tablet, 150 mg PO DAILY #30 tabs 10/11/22 extended release naproxen 500 mg tablet 500 mg PO BID #120 tabs 11/08/22 amoxicillin 875 mg-potassium 1 tab PO BID #20 tabs 12/12/22 clavulanate 125 mg tablet clindamycin HCl 300 mg capsule 300 mg PO Q8H 7 days #21 caps 12/12/22 Allergies Allergy/AdvReac Type Severity Reaction Status Date / Time No Known Allergies Allergy Verified 12/12/22 10:29 [facility] Disclaimer: The information contained in this section may have been updated after the patient was seen, as this information can be updated by other users. Medical History contractions Vertigo Surgical History History of appendectomy History of thyroidectomy History of tonsillectomy and adenoidectomy Hx of cholecystectomy Family History Other No significant family history Social History (Reviewed 12/12/22 @ 10:29 by Qing
[2022-12-12 21:15] VITALS: BP 105/65; PULSE 80; RESP 18; TEMP 36.6; O2SAT 99
--- NOTE | 2022-12-15 14:12 | PC.NURSE ---
contacted pt r/t wound culture result, pt report is taking clindamycin as prescribed. Advised pt to continue antibiotics as prescribed and notified pt of wound culture result. Pt verbalized understanding, states is working on getting a primary care doctor.
== END 2022-12-12 21:41 | disposition home or self-care (01) ==
PROVIDERS: Emergency Provider Emergency Medicine
DX: H20.00 Unspecified acute and subacute iridocyclitis (principal); H00.012 Hordeolum externum right lower eyelid; Z90.49 Acquired absence of other specified parts of digestive tract
CPT/HCPCS: 87070; 87077; 87186; 87205; 96365; 96375; 99284; J0131

== ENCOUNTER 2023-01-14 15:16 | Emergency (ER) | payer OTHER, SELFPAY ==
[2023-01-14 15:30] VITALS: BP 95/74; PULSE 83; RESP 16; O2SAT 100
[2023-01-14 15:31] VITALS: BP 96/73; PULSE 79; RESP 20; TEMP 36.7; O2SAT 100; BMI 35.4
--- NOTE | 2023-01-14 15:36 | HMH.EDGENADL ---
Discharge Plan Disposition Patient Disposition: Home, Self-Care Prescriptions Prescriptions: No Action bupropion HCl 150 mg tablet extended release 24 hr 150 mg PO DAILY Qty: 30 3RF Mirena 21 mcg/24 hours (8 yrs) 52 mg intrauterine device intrauterine naproxen 500 mg tablet 500 mg PO BID Qty: 120 4RF amoxicillin-pot clavulanate 875-125 mg tablet 1 tab PO BID Qty: 20 0RF PNV cmb#95-ferrous fumarate-FA [] 28 mg iron- 800 mcg tablet 1 tab PO DAILY levothyroxine 150 mcg tablet 150 mcg PO DAILY clindamycin HCl 300 mg capsule 300 mg PO Q8H 7 Days Qty: 21 0RF Referrals Follow up/Referrals: Kaushik Murillo JR, MD [Physician] - See instructions (If patient does not improve within 1 week follow-up for possible outpatient MRI) Provider,MD Deuce [Primary Care Provider] - See instructions Activity Restrictions/Add. Instructions Additional Instructions/Restrictions: You may take 80 mg of ibuprofen 3 times a day and 1000 mg of Tylenol 3 times a day as needed with food bear weight as tolerated follow-up with orthopedic surgery in 1 week if you are not able to bear weight or not improving. Clinical Impressions Clinical Impression: Ankle sprain Discharge ED Provider: Oliver Gonzalez General Adult HPI General Chief complaint: PAIN Stated complaint: AO 01/14 Right ankle pain and swollen Time Seen by Provider: 01/14/23 15:36 Mode of Arrival: Ambulatory Source of Information: Patient Limitations: No Limitations Description of Symptoms (Recalled from ER Triage Doc. by RN): pt to ed c/o right ankle pain. pt states she fell down 3 concrete steps and felt a pop and is now unable to bear weight. History of Present Illness HPI narrative: 27-year-old female presenting with right ankle injury. States she was walking downstairs and missed the last step and had an inversion ankle injury with a pop and has significant pain and swelling in the right lateral ankle and foot with difficulty bearing weight secondary to pain. No injuries elsewhere. Pain is moderate. Related Data Home Medications Medication Instructions Recorded Confirmed vit no.95-ferrous 1 tab PO DAILY Diet supplement 07/08/22 12/12/22 fumarate 28 mg-folic acid 800 mcg tablet () levothyroxine 150 mcg tablet 150 mcg PO DAILY THYROID 10/24/22 03/13/23 levonorgestrel 21 mcg/24 hours (8 intrauterine 11/08/22 12/12/22 yrs) 52 mg intrauterine device (Mirena) Previous Rx's Medication Instructions Recorded bupropion HCl 150 mg 24 hr tablet, 150 mg PO DAILY #30 tabs 10/11/22 extended release naproxen 500 mg tablet 500 mg PO BID #120 tabs 11/08/22 amoxicillin 875 mg-potassium 1 tab PO BID #20 tabs 12/12/22 clavulanate 125 mg tablet clindamycin HCl 300 mg capsule 300 mg PO Q8H 7 days #21 caps 12/12/22 Allergies Allergy/AdvReac Type Severity Reaction Status Date / Time No Known Allergies Allergy Verified 12/12/22 10:29 [facility] Disclaimer: The information contained in this section may have been updated after the patient was seen, as this information can be updated by other users. Medical History contractions Vertigo Surgical History History of appendectomy History of thyroidectomy History of tonsillectomy and adenoidectomy Hx of cholecystectomy Family History Other No significant family history Social History Smoking Status: Never smoker alcohol intake: never substance use type: denies use current occupational status: employed Travel in the last 8 weeks: None household members: spouse marital status: number of children: 1 service: No snf: No sexually active: Yes ROS Obtained: Yes A
--- NOTE | 2023-01-14 15:38 | XR_ITS ---
PROCEDURE INFORMATION: Exam: XR Right Foot Exam date and time: 01/14/2023 3:45 PM Age: 27 years old Clinical indication: Injury or trauma; Fall; Blunt trauma; Ankle; Right; Additional info: Fall, inversion injury TECHNIQUE: Imaging protocol: Radiologic exam of the right foot. Views: 3 or more views. COMPARISON: No relevant prior studies available. FINDINGS: Bones/joints: Normal. Soft tissues: Normal. IMPRESSION: No acute findings.
--- NOTE | 2023-01-14 15:38 | XR_ITS ---
PROCEDURE INFORMATION: Exam: XR Right Ankle Exam date and time: 01/14/2023 3:46 PM Age: 27 years old Clinical indication: Injury or trauma; Fall; Blunt trauma; Ankle; Right; Additional info: Fall, inversion injury TECHNIQUE: Imaging protocol: Radiologic exam of the right ankle. Views: 3 or more views. COMPARISON: CR XR FOOT RT MIN 3V 01/14/2023 3:45 PM FINDINGS: Bones/joints: Normal. Soft tissues: Normal. IMPRESSION: No acute findings.
[2023-01-14 17:02] VITALS: BP 98/69; PULSE 78; RESP 18; TEMP 36.6; O2SAT 98
== END 2023-01-14 17:07 | disposition home or self-care (01) ==
PROVIDERS: Emergency Provider Student in an Organized Health Care Education/Training Program
DX: S93.401A Sprain of unspecified ligament of right ankle, initial encounter (principal); X50.1XXA Overexertion from prolonged static or awkward postures, initial encounter
CPT/HCPCS: 73610; 73630; 99283; 99284

== ENCOUNTER 2023-01-30 17:18 | Emergency (ER) | payer OTHER, SELFPAY ==
--- NOTE | 2023-01-30 18:08 | XR_ITS ---
PROCEDURE INFORMATION: Exam: XR Left Ankle Exam date and time: 01/30/2023 6:06 PM Age: 27 years old Clinical indication: Injury or trauma; Fall; Blunt trauma; Ankle; Left TECHNIQUE: Imaging protocol: Radiologic exam of the left ankle. Views: 3 or more views. COMPARISON: No relevant prior studies available. FINDINGS: Bones/joints: Normal. Soft tissues: Soft tissue swelling most pronounced superficial to the lateral malleolus. IMPRESSION: 1. Soft tissue swelling most pronounced superficial to the lateral malleolus. 2. No evidence of acute osseous injury.
--- NOTE | 2023-01-30 18:08 | XR_ITS ---
PROCEDURE INFORMATION: Exam: XR Left Foot Exam date and time: 01/30/2023 6:07 PM Age: 27 years old Clinical indication: Injury or trauma; Fall; Blunt trauma; Foot; Left TECHNIQUE: Imaging protocol: Radiologic exam of the left foot. Views: 3 or more views. COMPARISON: CR XR ANKLE LT MIN 3V 01/30/2023 6:06 PM FINDINGS: Bones/joints: Normal. Soft tissues: Normal. IMPRESSION: No acute findings.
[2023-01-30 18:13] VITALS: BP 104/68; PULSE 74; RESP 18; TEMP 36.8; O2SAT 98; BMI 37.2
--- NOTE | 2023-01-30 18:21 | EXP.UTC ---
Discharge Plan Disposition Patient Disposition: Home, Self-Care Condition: Good Prescriptions Prescriptions: No Action bupropion HCl 150 mg tablet extended release 24 hr 150 mg PO DAILY Qty: 30 3RF Mirena 21 mcg/24 hours (8 yrs) 52 mg intrauterine device intrauterine naproxen 500 mg tablet 500 mg PO BID Qty: 120 4RF amoxicillin-pot clavulanate 875-125 mg tablet 1 tab PO BID Qty: 20 0RF PNV cmb#95-ferrous fumarate-FA [] 28 mg iron- 800 mcg tablet 1 tab PO DAILY levothyroxine 150 mcg tablet 150 mcg PO DAILY clindamycin HCl 300 mg capsule 300 mg PO Q8H 7 Days Qty: 21 0RF Referrals Follow up/Referrals: Provider,Referral, MD [Primary Care Provider] - See instructions Activity Restrictions/Add. Instructions Additional Instructions/Restrictions: Rest the extremity, apply ice for 15 minutes as tolerated three or four times per day, Wear the gwendolyn wrap for compression, Elevate the extremity as tolerated while you are resting. Take ibuprofen for pain. Follow up with your orthopedic doctor. Sometimes there can be fractures that don't show up well on the first set of x-rays. So, you should follow up if your orthopedic physician. Follow up with your regular doctor. GO TO THE ER FOR ANY WORSENING SYMPTOMS Clinical Impressions Clinical Impression: Left ankle sprain, Sprain of foot, left Stand Alone Forms Stand Alone Forms: Work/School Release Instructions Patient Instructions: Ankle Sprain, DI for Ankle Sprain, DI for Foot Sprain Discharge ED Provider: Carlos Quiñonez [facility] HPI General Stated complaint: [id number]/01@[id number] LT ankle inj Mode of Arrival: Wheelchair Source of Information: Patient Limitations: No Limitations Time Seen by Provider: 01/30/23 18:21 HEENT Symptoms (Recalled from RN notes): No Resp Symptoms (Recalled from RN notes): No Skin Symptoms (Recalled from RN notes): No MS Symptoms (Recalled from RN notes): Yes Functional Status (Recalled from RN notes): na History of Present Illness Provider Complaint: pt c/o fall today with injury to her left ankle. Related Data Home Medications Medication Instructions Recorded Confirmed vit no.95-ferrous 1 tab PO DAILY Diet supplement 07/08/22 12/12/22 fumarate 28 mg-folic acid 800 mcg tablet () levothyroxine 150 mcg tablet 150 mcg PO DAILY THYROID 07/25/22 12/12/22 levonorgestrel 21 mcg/24 hours (8 intrauterine 11/08/22 12/12/22 yrs) 52 mg intrauterine device (Mirena) Previous Rx's Medication Instructions Recorded bupropion HCl 150 mg 24 hr tablet, 150 mg PO DAILY #30 tabs 10/11/22 extended release naproxen 500 mg tablet 500 mg PO BID #120 tabs 11/08/22 amoxicillin 875 mg-potassium 1 tab PO BID #20 tabs 12/12/22 clavulanate 125 mg tablet clindamycin HCl 300 mg capsule 300 mg PO Q8H 7 days #21 caps 12/12/22 Allergies Allergy/AdvReac Type Severity Reaction Status Date / Time No Known Allergies Allergy Verified 12/12/22 10:29 Worker's Comp Is this a Worker's Comp case?: No [facility] Disclaimer: The information contained in this section may have been updated after the patient was seen, as this information can be updated by other users. Medical History contractions Vertigo Surgical History History of appendectomy History of thyroidectomy History of tonsillectomy and adenoidectomy Hx of cholecystectomy Family History Other No significant family history Social History Smoking Status: Never smoker alcohol intake: never substance use type: denies use current occupational status: employed Travel in the last 8 weeks: None household members: spouse marital status: number of children: 1 service: No
[2023-01-30 18:55] VITALS: BP 105/70; PULSE 75; RESP 16; TEMP 36.6; O2SAT 98
== END 2023-01-30 19:05 | disposition home or self-care (01) ==
PROVIDERS: Emergency Provider Nurse Practitioner Family
DX: S93.402A Sprain of unspecified ligament of left ankle, initial encounter (principal); S93.602A Unspecified sprain of left foot, initial encounter; W19.XXXA Unspecified fall, initial encounter
CPT/HCPCS: 73610; 73630; 99212; 99213; G0463

== ENCOUNTER → 2023-03-08 12:50 | Outpatient (CLI) | payer OTHER, SELFPAY ==
--- NOTE | 2023-03-08 12:52 | MR_ITS ---
FINAL REPORT TECHNIQUE: Multiplanar MRI without gadolinium enhancement CLINICAL HISTORY: .lt ankle pain, pt twisted ankle 1 month ago FINDINGS: Articular cartilage: No focal osteochondral defect Marrow signal: Marrow edema in the medial malleolus and medial talus most compatible with bone contusions. Joint fluid: Moderate joint effusion. Joint body in the anterior joint space measuring up to 8 mm, best seen on sagittal imaging Tendons: No evidence of tear Ligaments: There is a complete tear of the ATFL. There is edema and thickening noted in the PTFL compatible with a partial tear. The CFL is intact. There is edema and thickening noted in the PTFL suggestive of a partial tear; although the pattern of injury would suggest an inversion injury in which a deltoid ligament injury would be unusual. Plantar fascia: No evidence of tear or fasciitis. IMPRESSION: 1. Complete tear of the ATFL with a partial tear of the PTFL. 2. Bone contusions in the medial ankle suggestive of an inversion injury. 3. Edema and thickening of the deltoid ligament compatible with a partial tear Reviewed, Interpreted and Dictated by Flakita Griffin MD Transcribed by Tomasa Yeboah Authenticated and [facility]
== END ==
PROVIDERS: PCP Nurse Practitioner Obstetrics & Gynecology; Visit Provider Orthopaedic Surgery Adult Reconstructive Orthopaedic Surgery
DX: M25.572 Pain in left ankle and joints of left foot (principal)
CPT/HCPCS: 73721

== ENCOUNTER → 2023-04-20 11:00 | Outpatient (CLI) | payer OTHER, SELFPAY ==
[2023-04-20 16:36] LABS: Alanine Aminotransferase 31 U/L (12-78); Albumin Level 4.5 g/dl (3.5-5.0); Albumin/Globulin Ratio 1.6 (1.1-1.8); Alkaline Phosphatase 62 U/L (38-126); Anion Gap 12.2 mEq/L (5-15); Aspartate Amino Transferase 67 U/L (14-36); Bilirubin,Total 0.9 mg/dl (0.2-1.3); Blood Urea Nitrogen 10 mg/dl (7-17); Calcium 9.1 mg/dl (8.4-10.2); Carbon Dioxide 31 mmol/L (22.0-30.0); Chloride 99 mmol/L (98-107); Chol/HDL Ratio 4.4 (1-3.5); Cholesterol 262 mg/dl (140-200); Estimated Glomerular Filt Rate 53 ml/min (>60); GFR (African American) 65 ML/MIN (>60); Globulin 2.9 g/dL (1.3-3.2); Glucose 79 mg/dl (74-100); HDL Cholesterol 59 mg/dl (40-60); Potassium 4.2 mmoL/L (3.5-5.1); Sodium 138 mmol/L (136-145); Total Protein,Serum 7.4 g/dl (6.3-8.2); Triglycerides 230 mg/dl (30-150); VLDL Cholesterol 46 mg/dL (0-40)
[2023-04-20 16:37] LABS: Basophils # 0.1 K/mm3 (0-0.2); Basophils % 0.9 % (0.1-2.0); Eosinophils # 0.4 K/mm3 (0.0-0.4); Hematocrit 41.1 % (37.0-47.0); Hemoglobin 13.3 g/dL (12.2-16.2); Lymphocytes # 2.8 K/mm3 (0.7-4.5); Lymphocytes % 36.3 % (10-50); Mean Corpuscular HGB Conc 32.4 g/dL (31.8-35.4); Mean Corpuscular Hemoglobin 31.1 pg (27.0-31.2); Mean Corpuscular Volume 96.1 fl (81-99); Mean Platelet Volume 8.3 fl (7.4-10.4); Monocytes # 0.3 K/mm3 (0.1-1.0); Monocytes % 4.4 % (1.7-9.3); Neutrophils # 4.1 K/mm3 (1.8-7.8); Neutrophils % 53.4 % (37.0-80.0); Platelet Count 254 K/mm3 (142-424); Red Blood Count 4.28 M/mm3 (4.20-5.40); Red Cell Distribution Width 14.7 % (11.5-17.5); White Blood Count 7.7 K/mm3 (4.8-10.8)
[2023-04-20 16:47] LABS: Direct LDL Cholesterol 128.35 mg/dL (100-129)
[2023-04-21 09:51] LABS: Free T4 (Free Thyroxine) < 0.07 ng/dl (0.78-2.19); T4 (Thyroxine) 0.7 ug/dl (5.53-11.0); Triiodothryronine (T3) Uptake 24 % (23.5-40.5)
== END ==
PROVIDERS: PCP Nurse Practitioner Family; Visit Provider Nurse Practitioner Family
DX: E03.9 Hypothyroidism, unspecified (principal)
CPT/HCPCS: 80053; 80061; 84436; 84439; 84443; 84479; 85025

== ENCOUNTER → 2023-04-21 06:54 | Outpatient (CLI) | payer OTHER, SELFPAY | PROVIDERS: PCP Nurse Practitioner Family; Visit Provider Nurse Practitioner Family | DX: E03.9 Hypothyroidism, unspecified (principal) | CPT/HCPCS: 84436; 84439; 84479 ==

== ENCOUNTER 2023-06-01 16:30 | Outpatient (RCR) | payer OTHER, SELFPAY ==
--- NOTE | 2023-04-19 09:00 | HMH.PTOPEV ---
PT Outpatient Evaluation Rehab PT Outpatient Evaluation Start: 04/19/23 08:45 Freq: Status: Active Protocol: Document 04/19/23 08:45 BALA (Rec: 04/19/23 09:00 PHOYASMIN [id number]) E-signed By Austin Ponce, PT Outpatient Therapy Subjective History Subjective History This is the initial PT eval for Melonie Moreno, 27 yowf who presents ~ 2 mos S/P L inversion ankle sprain after a ground level fall. She reports continued pain and swelling, especially with walking or prolonged standing. She had MRI which confirms L ATFL complete tear and partial tear of PTFL. She was immobilized in cam walker for ~ 1 mo and continues to wear ankle brace for stability. Chief Complaint Pain,Stiff,Swelling Symptom Type Ache Symptoms Relieved By Rest/Positioning Symptoms Aggravated By Standing,Physical Activity, Walking Prior Functional Limitations None Current Functional Limitations Standing,Walking Symptom Description Constant but Variable Level of pain today (0-10) 5 Pain scale - at its worst (0-10) 8 Ankle/Foot Eval Gait Observation General Gait Pattern Observation Antalgic Gait Palpation Tenderness left Ankle/Foot Palpation Findings Tenderness Ankle/Foot Palpation Overall Comment 2/4 surrounding L lat mal ATF TTP positive PTF TTP positive CF TTP positive Deltoid ligament TTP negative ROM Ankle/Foot Dorsiflexion w/Knee Extended 0-2 Active Range Motion (degrees) Ankle/Foot Plantar Flexion Active Range 0-30 of Motion (degrees) Ankle/Foot Eversion Active Range of 0-8 Motion (degrees) Ankle/Foot Inversion Active Range of 0-28 Motion (degrees) MMT Ankle Dorsiflexion Strength Grade 4 Good Ankle Plantarflexion Strength Grade 4 Good Foot Eversion Strength Grade 4 Good Foot Inversion Strength Grade 4 Good Special Tests Ankle Anterior Drawer Test Negative Left,Negative Right Ankle Eversion Test Negative Left,Negative Right Ankle Posterior Drawer Test Negative Left,Negative Right Outpatient Therapy Assessment Impairments Problems/Impairmments Palpation Tenderness,Impaired Range of Motion,Impaired Strength,Impaired Gait Pattern ,Impaired Walking,Impaired
--- NOTE | 2023-05-18 16:39 | HMH.RHREAS ---
Rehab Reassessment Rehab OP Re-assessment Start: 04/19/23 08:45 Freq: Status: Active Protocol: Document 05/18/23 16:34 BALA (Rec: 05/18/23 16:39 PHORKRYSTINA [id number]) E-signed By Austin Ponce, PT Rehab Re-assessment Subjective Subjective Pt reports pain continues in medial L ankle and distal achilles tendon area. 02/08 prior to treatment. Pt presents wearing L ankle brace and slip on Crocs . Objective Objective Notes AROM L ankle (in deg): DF= 0- 10, PF= 0-32, INV= 0-38, EVER= 0-20 MMT L ankle: DF= 4+/5, PF= 5/5 , inv= 4+/5, EVER= 4+/5 TTP: 2 L Lat ankle Pain 02/08 Assessment Progress Assessment Slower Than Expected Assessment Notes Pt has shown significant improvements in L ankle AROM and moderate improvement in L ankle strength. However, she continues to have pain with prolonged standing/walking and feelings of instability in her L ankle in standing. She continues to need skilled intervention to return to prior level of function. Patient goals met ST,3,[address],4,5 LT,2,3,4,5,6, 7 Plan Plan Continue per initial POC. No BAPS board due to increased pain. Frequency of Therapy 2 x/wk Duration of therapy 4 wks Time and Billing Re-Eval Time 13 Re-Eval Billing Units 1 PHYSICIAN CERTIFICATION: I certify the specified therapy services for Melonie Moreno are required, authorized, and reviewed every 30 days.
== END 2023-06-01 16:35 | disposition home or self-care (01) ==
LOC: PT 16:30
PROVIDERS: PCP Nurse Practitioner Obstetrics & Gynecology; Visit Provider Orthopaedic Surgery
DX: S93.402A Sprain of unspecified ligament of left ankle, initial encounter (principal); S96.912A Strain of unspecified muscle and tendon at ankle and foot level, left foot, initial encounter
CPT/HCPCS: 97010; 97014; 97110; 97112; 97163; 97164; 97530; G0283

== ENCOUNTER → 2023-08-01 07:11 | Outpatient (CLI) | payer OTHER, SELFPAY ==
[2023-08-01 08:40] LABS: HCG,Quantitative 1515 mIU/ml (0-5.42)
[2023-08-02 11:04] LABS: Progesterone 16.4 ng/mL (.)
== END ==
PROVIDERS: PCP Nurse Practitioner Family; Visit Provider Nurse Practitioner Obstetrics & Gynecology
DX: N92.6 Irregular menstruation, unspecified (principal)
CPT/HCPCS: 36415; 84144; 84702

== ENCOUNTER → 2023-08-21 09:02 | Outpatient (CLI) | payer OTHER, SELFPAY ==
[2023-08-21 09:28] LABS: Basophils % 0.6 % (0.1-2.0); Eosinophils # 0.2 K/mm3 (0.0-0.4); Eosinophils % 3.2 % (0.1-12.0); Hematocrit 40.6 % (37.0-47.0); Hemoglobin 13.6 g/dL (12.2-16.2); Lymphocytes % 28.7 % (10-50); Mean Corpuscular HGB Conc 33.4 g/dL (31.8-35.4); Mean Corpuscular Hemoglobin 30.3 pg (27.0-31.2); Mean Corpuscular Volume 90.6 fl (81-99); Mean Platelet Volume 8.5 fl (7.4-10.4); Monocytes # 0.3 K/mm3 (0.1-1.0); Monocytes % 3.8 % (1.7-9.3); Neutrophils # 4.4 K/mm3 (1.8-7.8); Neutrophils % 63.8 % (37.0-80.0); Platelet Count 248 K/mm3 (142-424); Red Blood Count 4.49 M/mm3 (4.20-5.40); Red Cell Distribution Width 14.9 % (11.5-17.5); White Blood Count 6.9 K/mm3 (4.8-10.8)
[2023-08-22 13:06] LABS: HIV Screen 4th Generation wRfx Non Reactive (Non Reactive)
[2023-08-22 13:10] LABS: Rapid Plasma Reagin Ab Titer Non Reactive titer (NonRea<1:1)
[2023-08-28 21:49] LABS: Hepatitis B Surface Antigen NEGATIVE; Hepatitis C Antibody NON REACTIVE; Rubella Antibodies, IgG 3.77
== END ==
PROVIDERS: PCP Nurse Practitioner Family; Visit Provider Nurse Practitioner Obstetrics & Gynecology
DX: Z34.91 Encounter for supervision of normal pregnancy, unspecified, first trimester (principal); Z3A.08 8 weeks gestation of pregnancy
CPT/HCPCS: 36415; 85025; 86593; 86703; 86762; 86850; 87086; 87340; 87380; G0432

== ENCOUNTER → 2023-08-25 13:34 | Outpatient (CLI) | payer OTHER, SELFPAY ==
--- NOTE | 2023-08-25 13:34 | US_ITS ---
PROCEDURE: US OB <= 14 WEEKS FETUS CLINICAL INDICATION: dates COMPARISON: No exams were available for comparison FINDINGS: Transvaginal sonographic images of the pelvis were obtained. From her last menstrual period she is 9weeks 3days. An intrauterine gestational sac is present with a pole with a crown-rump length of 1.81cm This correlates to a gestational age of 8weeks 3days. heart tones are present with an FHR of 167bpm. Yolk sac is noted. The yolk sac measures 6mm. The right ovary is seen and appears normal. It measures 2.9 cm x 1.2 cm x 1.0 cm. The left ovary is seen and is enlarged. There is flow within the left ovary. It measures 7.1 cm x 7.0 cm x 4.1 cm. There is a large simple cyst within the left ovary that measures 6.4 cm x 3.7 cm x 6.0 cm. There is no fluid in the cul-de-sac. IMPRESSION: 1. Viable fetus within the uterine cavity that measures 8 weeks and 3 days. 2. The YVON should be adjusted to April 02, 2024. 3. There is a 6.4 cm simple cyst within the left ovary. 4. No fluid in the cul-de-sac. Dictated by: Rey Yee MD 08/25/2023 18:21 Rey Yee MD in [facility] 08/25/2023 18:21
== END ==
PROVIDERS: PCP Nurse Practitioner Family; Visit Provider Nurse Practitioner Obstetrics & Gynecology
DX: Z34.91 Encounter for supervision of normal pregnancy, unspecified, first trimester (principal); Z3A.08 8 weeks gestation of pregnancy
CPT/HCPCS: 76801

== ENCOUNTER 2023-10-10 08:20 | Emergency (ER) | payer OTHER, SELFPAY ==
[2023-10-10 08:30] VITALS: BP 101/68; PULSE 91; RESP 18; TEMP 36.7; O2SAT 100; BMI 37.2
--- NOTE | 2023-10-10 08:31 | ED_ITS ---
Discharge Plan Disposition Patient Disposition: Home, Self-Care Condition: Good Prescriptions Prescriptions: No Action Classic 28 mg iron- 800 mcg tablet 1 tab PO DAILY Qty: 90 3RF bupropion HCl 150 mg tablet extended release 24 hr 150 mg PO DAILY Qty: 30 3RF levothyroxine 175 mcg tablet 175 mcg PO DAILY 30 Days Qty: 30 0RF Referrals Follow up/Referrals: Adilene Lepe APRN [Primary Care Provider] - See instructions Activity Restrictions/Add. Instructions Additional Instructions/Restrictions: Drink plenty of fluids. Take tylenol for pain or fever. Follow up with your regular doctor. GO TO THE ER FOR ANY WORSENING SYMPTOMS Clinical Impressions Clinical Impression: Acute viral syndrome, Stand Alone Forms Stand Alone Forms: Work/School Release Instructions Patient Instructions: DI for Viral Syndrome Discharge ED Provider: Carlos Quiñonez [facility] General Stated complaint: vomiting, headache Time Seen by Provider: 10/10/23 08:31 History of Present Illness Provider Complaint: She states that for the past 2 days she has had fever, chills, and malaise. Related Data Previous Rx's Medication Instructions Recorded bupropion HCl 150 mg 24 hr tablet, 150 mg PO DAILY #30 tabs 04/26/23 extended release levothyroxine 175 mcg tablet 175 mcg PO DAILY 30 days #30 tabs 08/08/23 vits no.126-ferrous fum 1 tab PO DAILY #90 tabs 08/21/23 28 mg iron-folic acid 800 mcg tablet (Classic ) Allergies Allergy/AdvReac Type Severity Reaction Status Date / Time No Known Allergies Allergy Verified 10/10/23 08:44 [facility] Disclaimer: The information contained in this section may have been updated after the patient was seen, as this information can be updated by other users. Medical History (Updated 10/10/23 @ 09:01 by Carlos Quiñonez APRN) History of hypothyroidism Vertigo Surgical History History of appendectomy History of thyroidectomy History of tonsillectomy and adenoidectomy Hx of cholecystectomy Family History Other No significant family history Social History Smoking Status: Never smoker alcohol intake: never substance use type: denies use current occupational status: employed Travel in the last 8 weeks: None household members: spouse marital status: number of children: 1 service: No custodial: No sexually active: Yes ROS Obtained: Yes All systems reviewed & no additional complaints except as documented Constitutional Constitutional: Reports chills and Reports fever(s) Eyes Eyes: Denies eye discharge ENT Ears, Nose, Mouth, and Throat: Reports as per HPI Cardiovascular Cardiovascular: Denies chest pain Respiratory Respiratory: Denies chest congestion and Reports cough Gastrointestinal Gastrointestingal: Reports nausea; Denies abdominal pain, constipation, cramping, diarrhea or vomiting Musculoskeletal Musculoskeletal: Denies arthralgias Integumentary/Breasts Skin/Breast: Denies rash Neurologic Neurologic: Denies paresthesias Physical Exam General General appearance: alert and in no apparent distress Head Head exam: atraumatic, normocephalic and normal inspection Eye Eye exam: Present normal appearance, PERRL and EOMI ENT ENT exam: Present normal exam, normal oropharynx, mucous membranes moist, TM's normal bilaterally and normal external ear exam Neck Neck exam: Present normal inspection, full ROM and trachea midline; Absent meningismus or lymphadenopathy Chest Chest inspection: Present normal inspection and symmetric chest wall rise; Absent tenderness Respiratory Respiratory exam: Present normal lung sounds bilaterally; Absent respiratory distress Cardiovascular Cardiovascular exam: Present regular rate and normal rhythm; Absent JVD Abdominal Exam Abdominal exam: Present soft and normal bowel sounds; Absent distention, tenderness or guarding Extremities Exam Extremities exam: Present normal inspection, full ROM and normal capillary refill; Absent calf tenderness Back Exam Back exam: Present normal inspection; Absent tenderness Neurological Exam Neurological exam: Present alert and oriented X3 Psychiatric Psychiatric exam: Present normal affect and normal mood Skin Skin exam: Present warm, dry, intact and normal color Lymphatic Lymphatic Findings: no adenopathy Medical Decision Making Medical Records Medical records reviewed: No I reviewed the patient's medical records. Dougie Inquiry Pt receiving controlled substance: No
[2023-10-10 08:39] LABS: UTC Influenza A Antigen Negative (Negative); UTC Influenza B Antigen Negative (Negative)
[2023-10-10 09:17] VITALS: BP 101/68; PULSE 91; RESP 18; TEMP 36.7; O2SAT 100
[2023-10-10 09:18] LABS: Adenovirus,PCR Not Detected (NotDetected); Bordetella Pertussis Not Detected (NotDetected); Chlamydophila Pneumoniae, PCR Not Detected (NotDetected); Coronavirus 19, PCR Not Detected (NotDetected); Coronavirus 229E Not Detected (NotDetected); Coronavirus NL63 Not Detected (NotDetected); Coronovirus HKU1,PCR Not Detected (NotDetected); Human Metapneumovirus Not Detected (NotDetected); Influenza A, PCR Not Detected (NotDetected); Influenza AH1, 2009 Not Detected (NotDetected); Influenza AH1, PCR Not Detected (NotDetected); Influenza AH3,PCR Not Detected (NotDetected); Influenza B, PCR Not Detected (NotDetected); Mycoplasma Pneumoniae, PCR Not Detected (NotDetected); Parainfluenza 1, PCR Not Detected (NotDetected); Parainfluenza 2, PCR Not Detected (NotDetected); Parainfluenza 3, PCR Not Detected (NotDetected); Parainfluenza 4, PCR Not Detected (NotDetected); Respiratory Syncytial Virus Not Detected (NotDetected); Rhinovirus/Enterovirus Not Detected (NotDetected)
[2023-10-10 10:51] LABS: Coronavirus OC43 Detected (NotDetected)
== END 2023-10-10 09:17 | disposition home or self-care (01) ==
PROVIDERS: Emergency Provider Nurse Practitioner Family; PCP Nurse Practitioner Family
DX: O26.899 Other specified pregnancy related conditions, unspecified trimester (principal); R51.9 Headache, unspecified; B34.2 Coronavirus infection, unspecified; Z3A.00 Weeks of gestation of pregnancy not specified; R11.2 Nausea with vomiting, unspecified
CPT/HCPCS: 87581; 87632; 87635; 87798; 87804; 99212; 99213; G0463

== ENCOUNTER 2023-10-18 15:39 | Outpatient (CLI) | payer OTHER, SELFPAY ==
[2023-10-18 16:53] LABS: T4 (Thyroxine) 17.6 ug/dl (5.53-11.0); Triiodothryronine (T3) Uptake 23 % (23.5-40.5)
== END 2023-10-18 23:59 ==
LOC: LAB 15:40
PROVIDERS: PCP Nurse Practitioner Family; Visit Provider Nurse Practitioner Obstetrics & Gynecology
DX: Z34.92 Encounter for supervision of normal pregnancy, unspecified, second trimester (principal); Z3A.16 16 weeks gestation of pregnancy; R10.31 Right lower quadrant pain
CPT/HCPCS: 36415; 84436; 84443; 84479

== ENCOUNTER 2023-11-14 12:48 | Outpatient (CLI) | payer OTHER, SELFPAY ==
--- NOTE | 2023-11-14 12:48 | US_ITS ---
PROCEDURE: US OB /MATERNAL DETAIL CLINICAL INDICATION: 20 week anatomy scan COMPARISON: US US OB <= 14 WEEKS FETUS from 08/25/2023 FINDINGS: Transabdominal sonographic images of the pelvis were obtained. From her established due date she is 20 weeks 0 days.. Single viable intrauterine gestation. Breech position. Placenta: Anteriorplacenta grade 1. There is an average amount of fluid. The cervix appears satisfactory. Closed and measuring 3.9 cm in length. Complete survey performed and was unremarkable on the submitted images as in PACS. No discrete anomalies identified on survey imaging by technologist. Active fetus. Three-vessel cord with satisfactory umbilical cord insertion. 4- chamber heart noted. Situs, aortic arch, LVOT, RVOT, three-vessel view appear normal. Survey of brain & ventricles Unremarkable. Cerebellum, thalamus, choroid plexus, cisterna magna appear normal. Face and neck survey unremarkable. Profile, nasion, lips and nose appeared normal. Diaphragm and chest views unremarkable. Abdomen: Both kidneys noted and unremarkable. Stomach and bladder noted and satisfactory. Spine: Survey of the spine satisfactory with no anomalies identified nor imaged. Cervical, thoracic, lower spine appear normal. Both arms and legs noted. Amniotic Fluid: Adequate. Measurements: Average ultrasound age 19weeks 4days. Estimated due date by ultrasound age 0704/05/2024. Estimated weight 321g BPD = 18weeks 5days HC = 19weeks 2days AC = 20weeks 3days FL = 19weeks 6days Growth Percentile= 41 Heart Rate = 142bpm Cerebellum = 19weeks 1day Humerus = 20weeks 0 days HC/AC is 1.1 FL/BPD is 0.76 FL/AC is 0.21 IMPRESSION: 1. Viable fetus in the breech presentation with an anterior placenta grade 1. 2. The fluid is within normal limits. 3. Anatomical scan appears normal. 4. biometry is consistent with the dates. Dictated by: Rey Yee MD 11/14/2023 15:39 Rey Yee MD in [facility] 11/14/2023 15:39
== END 2023-11-14 23:59 ==
LOC: RAD 12:48
PROVIDERS: PCP Nurse Practitioner Family; Visit Provider Nurse Practitioner Obstetrics & Gynecology
DX: O26.892 Other specified pregnancy related conditions, second trimester (principal); Z3A.20 20 weeks gestation of pregnancy
CPT/HCPCS: 76811

== ENCOUNTER 2023-12-27 09:21 | Outpatient (CLI) | payer OTHER, SELFPAY ==
[2023-12-27 10:29] LABS: Basophils % 0.6 % (0.1-2.0); Eosinophils # 0.2 K/mm3 (0.0-0.4); Eosinophils % 2.4 % (0.1-12.0); Hemoglobin 12.5 g/dL (12.2-16.2); Lymphocytes # 1.7 K/mm3 (0.7-4.5); Lymphocytes % 24.3 % (10-50); Mean Corpuscular HGB Conc 32.8 g/dL (31.8-35.4); Mean Corpuscular Hemoglobin 32.4 pg (27.0-31.2); Mean Corpuscular Volume 98.6 fl (81-99); Mean Platelet Volume 8.7 fl (7.4-10.4); Monocytes # 0.3 K/mm3 (0.1-1.0); Monocytes % 4.8 % (1.7-9.3); Neutrophils # 4.6 K/mm3 (1.8-7.8); Neutrophils % 67.9 % (37.0-80.0); Platelet Count 288 K/mm3 (142-424); Red Blood Count 3.85 M/mm3 (4.20-5.40); Red Cell Distribution Width 15.2 % (11.5-17.5); White Blood Count 6.8 K/mm3 (4.8-10.8)
[2023-12-27 10:40] LABS: Glucose,Fasting 85 mg/dl (74-100)
[2023-12-27 11:15] LABS: Glucose 1 Hour 97 mg/dL (74-100)
[2023-12-27 14:30] VITALS: BP 106/61; PULSE 95; RESP 16; TEMP 36.6; O2SAT 100
== END 2023-12-27 23:59 ==
LOC: LAB 09:22 → INF 14:25
PROVIDERS: PCP Nurse Practitioner Family; Visit Provider Obstetrics & Gynecology
DX: O99.282 Endocrine, nutritional and metabolic diseases complicating pregnancy, second trimester (principal); E03.9 Hypothyroidism, unspecified; O26.892 Other specified pregnancy related conditions, second trimester; Z3A.26 26 weeks gestation of pregnancy
CPT/HCPCS: 36415; 82951; 84443; 85025; 96372

== ENCOUNTER 2024-01-18 15:27 | Outpatient (CLI) | payer OTHER, SELFPAY ==
--- NOTE | 2024-01-18 15:34 | XR_ITS ---
FINAL REPORT CLINICAL HISTORY: COUGH x1.5 months office requested AP view patient , shielded for exam FINDINGS: TWO-VIEW CHEST The heart size is normal. The mediastinum is normal. There is linear opacity in the inferior right upper lobe extending to the right hilum, probably due to atelectasis or combination of atelectasis and resolving infiltrate. There is no pneumothorax. IMPRESSION: Linear opacity in the inferior right upper lobe as detailed above. Reviewed, Interpreted and Dictated by Torrey Barksdale MD Transcribed by Evita Gross Authenticated and [facility]
== END 2024-01-18 23:59 ==
LOC: RAD 15:28
PROVIDERS: PCP Nurse Practitioner Family; Visit Provider Nurse Practitioner Obstetrics & Gynecology
DX: R05.1 Acute cough (principal); Z3A.29 29 weeks gestation of pregnancy
CPT/HCPCS: 71046

== ENCOUNTER 2024-02-12 11:32 | Outpatient (CLI) | payer OTHER, SELFPAY ==
[2024-02-12 11:39] VITALS: BMI 34.9
[2024-02-12 11:40] VITALS: BP 103/53; PULSE 101; RESP 18; TEMP 36.7; O2SAT 99; BMI 34.9
[2024-02-12 11:50] LABS: Microscopic, Urine URINE MICROSCOPIC (MICROSCOPIC)
[2024-02-12 12:03] LABS: Appearance,Urine CLEAR (Clear); Bilirubin,Urine Negative (Negative); Blood, Urine Negative (Negative); Color,Urine YELLOW (Yellow); Glucose,Urine (UA) Negative (Negative); Ketones,Urine Negative (Negative); Leukocyte Esterase,Urine TRACE (Negative); Nitrate,Urine Negative (Negative); Protein,Urine Negative (Negative); Urobilinogen,Urine 0.2 EU/dl (0.2)
[2024-02-12 12:09] LABS: Barbiturates Screen,Urine Negative ng/ml (<200); Benzodiazepines Screen,Urine Negative ng/ml (<200)
[2024-02-12 12:10] LABS: Amphetamine/Metha Screen,Urine Negative ng/ml (<1000)
[2024-02-12 12:11] LABS: Methadone Screen,Urine Negative ng/ml (<300)
[2024-02-12 12:12] LABS: Cannabinoid Screen,Urine Negative ng/ml (<50); Cocaine Screen,Urine Negative ng/ml (<300)
[2024-02-12 12:13] LABS: Opiate Screen,Urine Negative ng/ml (<300); Phencyclidine Screen,Urine Negative ng/ml (<25)
[2024-02-12 12:18] LABS: Bacteria,Urine 1+ /lpf
== END 2024-02-12 12:42 | disposition home or self-care (01) ==
LOC: OBOUT 11:33 → OB 11:35
PROVIDERS: PCP Nurse Practitioner Family; Visit Provider Nurse Practitioner Obstetrics & Gynecology
DX: O26.893 Other specified pregnancy related conditions, third trimester (principal); Z3A.32 32 weeks gestation of pregnancy
CPT/HCPCS: 80307; 81001; G0463

== ENCOUNTER 2024-02-22 16:38 | Outpatient (CLI) | payer OTHER, SELFPAY ==
[2024-02-22 16:45] VITALS: BP 121/73; PULSE 108; RESP 16; TEMP 36.8; O2SAT 98; BMI 35.0
[2024-02-22 17:12] VITALS: BMI 35.0
[2024-02-22 17:27] LABS: Microscopic, Urine URINE MICROSCOPIC (MICROSCOPIC)
[2024-02-22 17:30] LABS: Appearance,Urine CLEAR (Clear); Bilirubin,Urine Negative (Negative); Blood, Urine Negative (Negative); Color,Urine YELLOW (Yellow); Glucose,Urine (UA) Negative (Negative); Ketones,Urine Negative (Negative); Leukocyte Esterase,Urine Negative (Negative); Nitrate,Urine Negative (Negative); Protein,Urine Negative (Negative); Urobilinogen,Urine 0.2 EU/dl (0.2)
[2024-02-22 17:41] LABS: Bacteria,Urine Trace /lpf; Squamous Epithelial Cell,Urine Occasional #/hpf (0-5); WBC,Urine Occasional #/hpf (0-3)
[2024-02-22 17:42] LABS: Barbiturates Screen,Urine Negative ng/ml (<200); Benzodiazepines Screen,Urine Negative ng/ml (<200)
[2024-02-22 17:43] LABS: Amphetamine/Metha Screen,Urine Negative ng/ml (<1000); Cocaine Screen,Urine Negative ng/ml (<300)
[2024-02-22 17:44] LABS: Methadone Screen,Urine Negative ng/ml (<300)
[2024-02-22 17:45] LABS: Cannabinoid Screen,Urine Negative ng/ml (<50); Opiate Screen,Urine Negative ng/ml (<300)
[2024-02-22 17:46] LABS: Phencyclidine Screen,Urine Negative ng/ml (<25)
[2024-02-22] MEDS: LACTATED RINGERS 1000ML 1,000 ML 999 ML IV (17:50)
== END 2024-02-22 22:40 | disposition home or self-care (01) ==
LOC: OBOUT 16:40 → OB 16:41
PROVIDERS: Visit Provider Obstetrics & Gynecology
DX: O26.893 Other specified pregnancy related conditions, third trimester (principal); Z3A.34 34 weeks gestation of pregnancy; W19.XXXA Unspecified fall, initial encounter
CPT/HCPCS: 80307; 81001; G0463

== ENCOUNTER 2024-02-26 12:00 | Outpatient (CLI) | payer OTHER, SELFPAY ==
[2024-02-26 12:23] VITALS: BMI 34.2
[2024-02-26 12:30] VITALS: BP 102/64; PULSE 103; RESP 20; TEMP 36.7; O2SAT 97; BMI 34.5
[2024-02-26 12:30] LABS: Microscopic, Urine URINE MICROSCOPIC (MICROSCOPIC)
[2024-02-26 12:33] LABS: Appearance,Urine SL CLOUDY (Clear); Bilirubin,Urine Negative (Negative); Blood, Urine Negative (Negative); Color,Urine YELLOW (Yellow); Glucose,Urine (UA) Negative (Negative); Ketones,Urine Negative (Negative); Leukocyte Esterase,Urine TRACE (Negative); Nitrate,Urine Negative (Negative); Protein,Urine Negative (Negative); Specific Gravity, Urine 1.025 (1.005-1.030); Urobilinogen,Urine 0.2 EU/dl (0.2)
[2024-02-26 12:45] LABS: Barbiturates Screen,Urine Negative ng/ml (<200)
[2024-02-26 12:46] LABS: Amphetamine/Metha Screen,Urine Negative ng/ml (<1000); Benzodiazepines Screen,Urine Negative ng/ml (<200)
[2024-02-26 12:47] LABS: Cannabinoid Screen,Urine Negative ng/ml (<50); Cocaine Screen,Urine Negative ng/ml (<300)
[2024-02-26 12:48] LABS: Methadone Screen,Urine Negative ng/ml (<300)
[2024-02-26 12:49] LABS: Phencyclidine Screen,Urine Negative ng/ml (<25)
[2024-02-26 12:50] LABS: Opiate Screen,Urine Negative ng/ml (<300)
[2024-02-26 13:14] LABS: Bacteria,Urine 2+ /lpf
[2024-02-26 13:14] LABS: Fetal Membrane Rupture (Rapid) Negative (Negative)
[2024-02-26] MEDS: LACTATED RINGERS 1000ML 1,000 ML 999 ML IV (14:03)
== END 2024-02-26 14:05 | disposition home or self-care (01) ==
LOC: OBOUT 12:03 → OB 12:04
PROVIDERS: PCP Nurse Practitioner Family; Visit Provider Nurse Practitioner Obstetrics & Gynecology
DX: O47.03 False labor before 37 completed weeks of gestation, third trimester (principal); Z3A.34 34 weeks gestation of pregnancy
CPT/HCPCS: 80307; 81001; 84112; 87086; G0463; J7120

== ENCOUNTER 2024-03-04 09:30 | Outpatient (CLI) | payer OTHER, SELFPAY | END 2024-03-04 23:59 | disposition home or self-care (01) | LOC: LAB.DROPOF 03-05 09:30 | PROVIDERS: PCP Nurse Practitioner Obstetrics & Gynecology; Visit Provider Nurse Practitioner Obstetrics & Gynecology | DX: O26.893 Other specified pregnancy related conditions, third trimester (principal); Z3A.35 35 weeks gestation of pregnancy | CPT/HCPCS: 86403 ==

== ENCOUNTER 2024-03-07 15:00 | Outpatient (CLI) | payer OTHER, SELFPAY ==
--- NOTE | 2024-03-07 15:00 | US_ITS ---
PROCEDURE: US OB BIOPHYSICAL PROFILE CLINICAL INDICATION: labor COMPARISON: US US OB /MATERNAL DETAIL from 11/14/2023 FINDINGS: Transabdominal sonographic images of the uterus were obtained. From her established due date she is 36weeks 2days. The following parameters are obtained: Viable Fetus in the cephalic presentation with an anterior placenta grade 2. Average ultrasound age is 36weeks 6days Estimated weight 2,978g, 6 lb 9 oz Cervix measures 4.4 cm. Measurements: heart Rate = 176bpm BPD = 37weeks 5days, 90 percentile HC = 37weeks 2days, 43 percentile AC = 36weeks 6days, 76 percentile FL = 35weeks 2days, 21 percentile HC/AC is 1 FL/BPD is 0.74 FL/AC is 0.21 61 percentile Amniotic fluid index: 8.38cm, MVP 5.33 cm. Qualitative AFV:2 Breathing movements: 2 Gross Body Movements: 2 Tone: 2 Biophysical profile score: 8 No obvious anomalies evident.Kidneys, profile, bladder, stomach, four-chamber heart, three-vessel cord appear normal. IMPRESSION: 1. Viable fetus in the cephalic presentation with an anterior placenta grade 2. 2. The fluid is within normal limits with an amniotic fluid index of 8.38 cm, MVP 5.33 cm. 3. Biophysical profile is 8/8 with good breathing movement and movement seen. 4. Limited anatomical scan appears normal. 5. There has been good interval growth with the fetus currently at 61 percentile. Dictated by: Rey Yee MD 03/08/2024 08:20 Rey Yee MD in [facility] 03/08/2024 08:20
== END 2024-03-07 23:59 | disposition home or self-care (01) ==
LOC: RAD 15:00
PROVIDERS: PCP Nurse Practitioner Obstetrics & Gynecology; Visit Provider Nurse Practitioner Obstetrics & Gynecology
DX: O47.03 False labor before 37 completed weeks of gestation, third trimester (principal); Z3A.35 35 weeks gestation of pregnancy
CPT/HCPCS: 76816; 76819; 80307; 81001; G0463; J7120

== ENCOUNTER 2024-03-07 16:59 | Outpatient (CLI) | payer OTHER, SELFPAY ==
[2024-03-07 17:23] VITALS: BMI 35.7
[2024-03-07 17:27] LABS: Microscopic, Urine URINE MICROSCOPIC (MICROSCOPIC)
[2024-03-07 17:32] VITALS: BP 100/64; PULSE 108; RESP 20; TEMP 37.2; O2SAT 97; BMI 35.7
[2024-03-07] MEDS: LACTATED RINGERS 1000ML 1,000 ML 999 ML IV (17:50)
[2024-03-07 17:56] LABS: Appearance,Urine CLEAR (Clear); Bilirubin,Urine Negative (Negative); Blood, Urine Negative (Negative); Color,Urine YELLOW (Yellow); Glucose,Urine (UA) Negative (Negative); Ketones,Urine Negative (Negative); Leukocyte Esterase,Urine TRACE (Negative); Nitrate,Urine Negative (Negative); Protein,Urine Negative (Negative); Urobilinogen,Urine 0.2 EU/dl (0.2)
[2024-03-07 18:02] LABS: Benzodiazepines Screen,Urine Negative ng/ml (<200)
[2024-03-07 18:03] LABS: Amphetamine/Metha Screen,Urine Negative ng/ml (<1000); Barbiturates Screen,Urine Negative ng/ml (<200)
[2024-03-07 18:04] LABS: Cannabinoid Screen,Urine Negative ng/ml (<50)
[2024-03-07 18:05] LABS: Cocaine Screen,Urine Negative ng/ml (<300); Methadone Screen,Urine Negative ng/ml (<300)
[2024-03-07 18:06] LABS: Opiate Screen,Urine Negative ng/ml (<300); Phencyclidine Screen,Urine Negative ng/ml (<25)
[2024-03-07 18:07] LABS: Amorphous Sediment,Urine Trace /lpf; Bacteria,Urine Trace /lpf; Squamous Epithelial Cell,Urine Occasional #/hpf (0-5)
== END 2024-03-07 19:34 | disposition home or self-care (01) ==
LOC: OBOUT 17:01 → OB 17:01
PROVIDERS: PCP Nurse Practitioner Family; Visit Provider Obstetrics & Gynecology
DX: O36.8190 Decreased fetal movements, unspecified trimester, not applicable or unspecified (principal)
CPT/HCPCS: 80307; 81001; G0463; J7120

== ENCOUNTER 2024-03-13 15:44 | Outpatient (CLI) | payer OTHER, SELFPAY ==
[2024-03-13 15:47] VITALS: BMI 35.7
[2024-03-13 16:10] VITALS: BP 118/65; PULSE 96; RESP 18; TEMP 36.7; O2SAT 98; BMI 35.7
[2024-03-13 16:26] LABS: Microscopic, Urine URINE MICROSCOPIC (MICROSCOPIC)
[2024-03-13 16:29] LABS: Appearance,Urine SL CLOUDY (Clear); Bilirubin,Urine Negative (Negative); Blood, Urine Negative (Negative); Color,Urine YELLOW (Yellow); Glucose,Urine (UA) Negative (Negative); Ketones,Urine Negative (Negative); Leukocyte Esterase,Urine 1+ (Negative); Nitrate,Urine Negative (Negative); Protein,Urine Negative (Negative); Urobilinogen,Urine 0.2 EU/dl (0.2)
--- NOTE | 2024-03-13 16:32 | US_ITS ---
PROCEDURE INFORMATION: Exam: US Biophysical Profile Without Non-Stress Test Exam date and time: 03/13/2024 4:47 PM Age: 28 years old Clinical indication: Other: No movement felt; ; Additional info: No movement since 2am TECHNIQUE: Imaging protocol: US biophysical profile without non-stress testing. COMPARISON: US OB /MATERNAL DETAIL 11/14/2023 1:00 PM FINDINGS: heart rate: 132 bpm presentation and position: Cephalic presentation. Amniotic fluid index: SOTO is 11.47 cm. BIOPHYSICAL PROFILE: breathing (BPP): 2 /2 gross body movement (BPP): 2 /2 tone (BPP): 2 /2 Amniotic fluid (BPP): 2 /2 Biophysical profile score (BPP): 8 /8 MATERNAL ANATOMY: Cervix: Cervical length measures 3.92 cm. IMPRESSION: Biophysical profile score 8/8.
[2024-03-13 16:41] LABS: Benzodiazepines Screen,Urine Negative ng/ml (<200)
[2024-03-13 16:42] LABS: Amphetamine/Metha Screen,Urine Negative ng/ml (<1000)
[2024-03-13 16:43] LABS: Barbiturates Screen,Urine Negative ng/ml (<200); Cannabinoid Screen,Urine Negative ng/ml (<50)
[2024-03-13 16:44] LABS: Cocaine Screen,Urine Negative ng/ml (<300); Methadone Screen,Urine Negative ng/ml (<300)
[2024-03-13 16:45] LABS: Bacteria,Urine 2+ /lpf; Opiate Screen,Urine Negative ng/ml (<300); RBC,Urine Occasional #/hpf (0-3)
[2024-03-13 16:46] LABS: Phencyclidine Screen,Urine Negative ng/ml (<25)
== END 2024-03-13 18:44 | disposition home or self-care (01) ==
LOC: OBOUT 15:45 → OB 15:46
PROVIDERS: PCP Nurse Practitioner Family; Visit Provider Nurse Practitioner Obstetrics & Gynecology
DX: O36.8190 Decreased fetal movements, unspecified trimester, not applicable or unspecified (principal); Z3A.37 37 weeks gestation of pregnancy
CPT/HCPCS: 76811; 76819; 76820; 80307; 81001; 87086; G0463

== ENCOUNTER 2024-03-15 10:14 | Outpatient (CLI) | payer OTHER, SELFPAY ==
[2024-03-15 10:25] VITALS: BP 96/60; PULSE 102; RESP 20; TEMP 36.4; O2SAT 98
[2024-03-15 10:30] VITALS: BP 96/60; PULSE 102; RESP 20; TEMP 36.4; O2SAT 98; BMI 36.3
--- NOTE | 2024-03-15 11:11 | US_ITS ---
PROCEDURE INFORMATION: Exam: US Biophysical Profile Without Non-Stress Test Exam date and time: 03/15/2024 11:20 AM Age: 28 years old Clinical indication: Other: Decreased movement; ; Additional info: Decreased movement TECHNIQUE: Imaging protocol: US biophysical profile without non-stress testing. COMPARISON: US OB BPP W/FET-MAT S/D 03/13/2024 4:47 PM FINDINGS: heart rate: 136 bpm presentation and position: position is cephalic. Placenta: Placenta is anterior without evidence for previa. Amniotic fluid index: SOTO is 14.15 cm. BIOPHYSICAL PROFILE: breathing (BPP): 2 /2 gross body movement (BPP): 2 /2 tone (BPP): 2 /2 Amniotic fluid (BPP): 2 /2 Biophysical profile score (BPP): 8 /8 MATERNAL ANATOMY: Cervix: Cervical length measures 4.4 cm. The cervix is intact measuring 4.4 cm. IMPRESSION: Normal biophysical profile.
== END 2024-03-15 11:59 | disposition home or self-care (01) ==
LOC: OBOUT 10:16 → OB 10:16
PROVIDERS: PCP Nurse Practitioner Family; Visit Provider Nurse Practitioner Obstetrics & Gynecology
DX: O36.8130 Decreased fetal movements, third trimester, not applicable or unspecified (principal); Z3A.37 37 weeks gestation of pregnancy
CPT/HCPCS: 76811; 76819; 76820; G0463

== ENCOUNTER 2024-03-17 10:00 | Outpatient (CLI) | payer OTHER, SELFPAY ==
[2024-03-17 10:10] VITALS: BP 119/67; PULSE 93; RESP 20; TEMP 36.8; O2SAT 98
[2024-03-17 11:16] VITALS: BMI 35.7
== END 2024-03-17 11:19 | disposition home or self-care (01) ==
LOC: OBOUT 10:02 → OB 10:03
PROVIDERS: PCP Nurse Practitioner Family; Visit Provider Obstetrics & Gynecology
DX: O26.893 Other specified pregnancy related conditions, third trimester (principal); Z3A.37 37 weeks gestation of pregnancy
CPT/HCPCS: G0463

== ENCOUNTER 2024-03-18 16:39 | Outpatient (CLI) | payer OTHER, SELFPAY | END 2024-03-18 23:59 | disposition home or self-care (01) | LOC: LAB.DROPOF 16:39 | PROVIDERS: PCP Nurse Practitioner Obstetrics & Gynecology; Visit Provider Nurse Practitioner Obstetrics & Gynecology | DX: O26.893 Other specified pregnancy related conditions, third trimester (principal); Z3A.37 37 weeks gestation of pregnancy | CPT/HCPCS: 86403 ==

== ENCOUNTER 2024-03-18 16:42 | Inpatient (IN) | payer OTHER, SELFPAY ==
--- NOTE | 2024-03-18 16:49 | EXP.HP ---
History of Present Illness *Admission Date: 03/18/24 *Reason for visit:: Induction of labor, decreased movement. *History of present illness: She is a 28-year-old 3 para 2 at 38 weeks gestational age. She is admitted for induction of labor. She has had decreased movement over the last week and despite the fact that she has had no abnormal findings on ultrasound and nonstress test she is concerned about her decreased movement. As result of that we have elected to induce her labor at term. [facility] Disclaimer: The information contained in this section may have been updated after the patient was seen, as this information can be updated by other users. Medical History Hypothyroidism affecting History of hypothyroidism Vertigo Surgical History Hx of cholecystectomy History of appendectomy History of tonsillectomy and adenoidectomy History of thyroidectomy Family History No significant family history Social History Smoking Status: Never smoker alcohol intake: never substance use type: denies use current occupational status: other Travel in the last 8 weeks: None household members: spouse marital status: number of children: 1 service: No skilled nursing: No sexually active: Yes Review of Systems Review of Systems Review of systems:: pertinent systems reviewed and negative unless documented below Meds Home Medications and Allergies Home Medications Medication Instructions Recorded Confirmed Type bupropion HCl 150 mg 24 hr tablet, 150 mg PO DAILY #30 tabs 10/13/23 03/18/24 Rx extended release promethazine 12.5 mg tablet 12.5 mg PO Q4H PRN nausea and 10/14/23 03/18/24 Rx vomiting #20 tabs vit no.95-ferrous tab PO 10/18/23 03/18/24 History fumarate 28 mg-folic acid 800 mcg tablet () ferrous sulfate 325 mg (65 mg 325 mg PO DAILY #30 tabs 11/14/23 03/18/24 Rx iron) tablet levothyroxine 200 mcg capsule 200 mcg PO DAILY #30 caps 12/27/23 03/18/24 Rx New Prescriptions to Start Prescriptions: Allergies Allergy/AdvReac Type Severity Reaction Status Date / Time No Known Allergies Allergy Verified 03/18/24 13:50 Exam Constitutional Constitutional: no acute distress *Routine HEENT Exam Head: Present normocephalic Eye: Present EOMI and PERRL ENT: Present mucous membranes moist *Routine Neck Exam Neck: Present supple; Absent lymphadenopathy *Routine Respiratory Exam Respiratory: Present CTA bilaterally *Routine Cardiovascular Exam Cardiovascular: Present RRR *Routine Abdominal Exam Abdominal: Present soft and normoactive bowel sounds; Absent tenderness *Routine Rectal Exam Rectal:: deferred *Routine Genitalia Exam Genitalia:: deferred *Routine Extremities Exam Extremities: Absent cyanosis, clubbing or edema *Routine Skin Exam Skin: Present warm; Absent rash *Routine Neurological Exam Neurological: Present alert and oriented X3 Assessment and Plan *Assessment and plan (1) Decreased movement during : Status: Acute Qualifiers: Fetus number: single or unspecified fetus Trimester: third trimester Qualified Code(s): O36.8130 - Decreased movements, third trimester, not applicable or unspecified Category: Medical Code(s): O36.8190 - Decreased movements, unspecified trimester, not applicable or unspecified (2) labor in third trimester with delivery: Status: Acute Qualifiers: Fetus number: single or unspecified fetus Qualified Code(s): O60.14X0 - labor third trimester with delivery third trimester, not applicable or unspecified Category: Medical Code(s): O60.14X0 - labor third trimester with delivery third trimester, not applicable or unspecified Plan Given the fact that she has had decreased movement over the last week despite the fact that ultrasound and nonstress tests are normal, we have elected to induce her labor at term. We will start her with Cytotec and then switch to oxytocin tomorrow.
[2024-03-18 17:07] VITALS: BMI 35.7
[2024-03-18 17:38] VITALS: BMI 35.7
[2024-03-18 17:52] LABS: Basophils # 0.1 K/mm3 (0-0.2); Basophils % 0.8 % (0.1-2.0); Eosinophils # 0.1 K/mm3 (0.0-0.4); Eosinophils % 1.5 % (0.1-12.0); Hematocrit 38.1 % (37.0-47.0); Hemoglobin 13.2 g/dL (12.2-16.2); Lymphocytes # 2.3 K/mm3 (0.7-4.5); Lymphocytes % 24.4 % (10-50); Mean Corpuscular HGB Conc 34.7 g/dL (31.8-35.4); Mean Corpuscular Hemoglobin 32.7 pg (27.0-31.2); Mean Corpuscular Volume 94.3 fl (81-99); Mean Platelet Volume 8.7 fl (7.4-10.4); Monocytes # 0.4 K/mm3 (0.1-1.0); Neutrophils # 6.4 K/mm3 (1.8-7.8); Neutrophils % 69.3 % (37.0-80.0); Platelet Count 229 K/mm3 (142-424); Red Blood Count 4.04 M/mm3 (4.20-5.40); Red Cell Distribution Width 16.2 % (11.5-17.5); White Blood Count 9.3 K/mm3 (4.8-10.8)
[2024-03-18] MEDS: miSOPROStol 100MCG TABLET 50 MCG PO ×2 (18:06→23:54)
[2024-03-18] MEDS: DEXTROSE 5%-LACTATED RINGERS 1,000 ML 125 ML IV (18:08)
[2024-03-19] MEDS: LACTATED RINGERS 1000ML 1,000 ML 250 ML IV (04:54)
[2024-03-19] MEDS: DEXTROSE 5%-LACTATED RINGERS 1,000 ML 125 ML IV ×2 (04:55→14:00)
[2024-03-19] MEDS: AMPICILLIN SODIUM 2 GM in 0.9 % SODIUM CHLORIDE 100 ML IV (04:55)
[2024-03-19] MEDS: OXYTOCIN/RINGERS LACTATE 30 UNITS/500 ML BAG IV (05:18)
[2024-03-19 07:09] VITALS: BP 102/70; PULSE 77; RESP 16; TEMP 36.6; O2SAT 100
[2024-03-19] MEDS: LEVOTHYROXINE 100MCG (0.1MG) TAB 200 MCG PO (08:07)
--- NOTE | 2024-03-19 08:45 | EXP.LABOR.NO ---
Labor Note Subjective: Date: 03/19/24 Time: 08:45 regular contraction Objective: NST:: Reactive Contractions:: every 2-3 minutes Cervical Dilation:: 2-3 Effacement:: 50% Station: -2 Membranes: artificially ruptured Comment:: I ruptured her membranes and there was clear fluid. Fetus: Monitoring?: Yes monitoring type:: Internal Comment:: I inserted an IUPC and scalp clip. Assessment: Labor progressing?: Yes Cephalopelvic disproportion?: No Plan: Anesthesia for epidural?: Yes Continue to labor down?: Yes Plan for ?: No Continue to monitor?: Yes Start pushing?: No Comment:: She has progressed well overnight and she is now 2 to 3 cm. There was clear fluid when I ruptured her membranes. Nonstress test is reactive. We will expect a vaginal delivery.
--- NOTE | 2024-03-19 09:38 | P.PNANES_ITS ---
[facility] Disclaimer: The information contained in this section may have been updated after the patient was seen, as this information can be updated by other users. Medical History Hypothyroidism affecting History of hypothyroidism Vertigo Surgical History Hx of cholecystectomy History of appendectomy History of tonsillectomy and adenoidectomy History of thyroidectomy Family History No significant family history Social History Smoking Status: Never smoker alcohol intake: never substance use type: denies use current occupational status: other Travel in the last 8 weeks: None household members: spouse marital status: number of children: 1 service: No intermediate: No sexually active: Yes [facility] Anesthesia Checklist Patient Identification Patient Identification: Arm Band and Verbal (Name & ) Structural Data Admitted From: Inpatient (OB 275) Planned Operative Procedure/s: Labor epidural Consent for Planned Operative Procedure(s) Verified: Yes Verified Documents: Surgical Consent and History and Physical NPO Status Verified Time NPO: 08:00 Chart Verification Results Verified: CBC, BMP and Chest Xray Additional verifications Patient : Yes (38 0/7 week IUP for induction of labor) Anesthesia Reactions: No Hx Blood Transfusions: No Blood Transfusion Reaction: No Cardiovascular Assessment Heart Sounds: S1 & S2 Pulse Rhythm: Irregular Peripheral Edema: No Airway Assessment Mallampati Score:: Class II C-Spine Mobility Assessed: Yes (ROM) TMJ Mobility Assessed: Yes Dentition: Good Dentition (Nothing loose per pt.) Neurological Assessment Level of Consciousness: Awake, Appropriate and Follows Commands Hx Seizures: No Numbness or tingling in extremities: No Anesthesia Plan Anesthesia Risk discussed: Yes Anesthesia Plan: Verified ASA Class: II Anesthesia Type: Epidural
--- NOTE | 2024-03-19 09:41 | P.PCN_ITS ---
[facility] Procedure Note Date: 03/19/24 Time: 09:15 Procedure Note:: Labor Epidural Position: Sitting Prep: Betadine x3 Level: L3-4 Needle: Touhy 19g Attempts: 1 Local to Skin: Lido 1% x 3mL VALENTINO to air: 9.5 cm CSF: NEGATIVE; Heme: NEGATIVE; Parasthesia: NEGATIVE Catheter: threaded & secured @20 cm to skin. Test dose: NEGATIVE w/5 mL Lido 1.5% w/epi 1:200K Bolus: Ropiviccaine 0.2% x 10mL w/Fentanyl 50mcg. [employer] CONSULTANT: 12mL/hr. Ropivicaine 0.2% w/Fentanyl 2mcg/mL Pt tolerated procedure well. Will continue to follow.
[2024-03-19] MEDS: ONDANSETRON 4MG/2ML VIAL 4 MG IV (09:57)
[2024-03-19] MEDS: AMPICILLIN SODIUM 1 GM in 0.9 % SODIUM CHLORIDE 50 ML IV ×3 (10:03→17:56)
--- NOTE | 2024-03-19 11:46 | EXP.LABOR.NO ---
Labor Note Subjective: Date: 03/19/24 Time: 11:46 regular contraction Objective: NST:: Reactive Contractions:: every 2-3 minutes Cervical Dilation:: 4 Effacement:: 90% Station: -2 Membranes: artificially ruptured Fetus: Monitoring?: Yes monitoring type:: Internal Assessment: Labor progressing?: Yes Cephalopelvic disproportion?: No Plan: Anesthesia for epidural?: Yes Continue to labor down?: Yes Plan for ?: No Continue to monitor?: Yes Start pushing?: No Comment:: Cervix has thinned considerably and she is now 4 cm dilated. Head is still a little high. We will continue with her induction and plan for vaginal delivery.
[2024-03-19] MEDS: ePHEDrine SULF 50MG/ML VIAL 10 MG IV (11:52)
--- NOTE | 2024-03-19 13:43 | EXP.LABOR.NO ---
Labor Note Subjective: Date: 03/19/24 Time: 13:43 regular contraction Objective: NST:: Reactive Contractions:: every 2-3 minutes Cervical Dilation:: 4-5 Effacement:: 90% Station: -1 Membranes: artificially ruptured Fetus: Monitoring?: Yes monitoring type:: Internal Assessment: Labor progressing?: Yes Cephalopelvic disproportion?: No Plan: Anesthesia for epidural?: Yes Continue to labor down?: Yes Plan for ?: No Continue to monitor?: Yes Additional information:: There is significant molding of the head. The baby's head comes down fairly well with contractions. We will continue with close observation and expect a vaginal delivery.
--- NOTE | 2024-03-19 16:52 | EXP.LABOR.NO ---
Labor Note Subjective: Date: 03/19/24 Time: 16:52 regular contraction Objective: NST:: Reactive Contractions:: every 2-3 minutes Cervical Dilation:: 6-7 Effacement:: 90% Station: -1 Membranes: artificially ruptured Fetus: monitoring type:: Internal Assessment: Labor progressing?: Yes Cephalopelvic disproportion?: No Plan: Anesthesia for epidural?: Yes Continue to labor down?: Yes Plan for ?: No Continue to monitor?: Yes Start pushing?: No Additional information:: The head comes down quite well with each contraction. We will continue to monitor her and expect a vaginal delivery. There continues to be significant molding of the head.
[2024-03-19] MEDS: OXYTOCIN/RINGERS LACTATE 30 UNITS/500 ML BAG 40 UNITS IV ×2 (19:04→19:15)
--- NOTE | 2024-03-19 19:12 | P.PCN_ITS ---
Delivery Note Delivery Date:: 03/19/24 Delivery Time:: 19:01 Anesthesia Type: Epidural Was labor medically induced?: Yes Induction method: per misoprostol protocol Gestational age (weeks): 38 Infant delivered prior to 39 weeks?: Yes Justification for early elective delivery:: Decreased Movements Infant Gender: Female at 1 minute: 8 at 5 minutes: 9 Delivery Procedure:: She is a 28-year-old 3 para 2 2 at 38 weeks gestational age. Over the last week she has had decreased movement and cannot feel the baby move at all. Ultrasounds and nonstress test were reactive but due to the concern of decreased movement we elected to deliver her at 38 weeks 0 days. She initially had oral doses of Cytotec and then this morning was started on IV oxytocin. She had her membranes ruptured. There was clear fluid. Under labor epidural she progressed to full dilation and delivered spontaneously a liveborn female child at 7:01 PM in the evening of March 19, 2024. On deliver the head it was noted that there was a tight nuchal cord and I was able to easily deliver the rest of the infant's body around this cord. The baby was vigorous and cried spontaneously. The oropharynx and nasopharynx were bulb suctioned. We allowed the cord to continue to pulsate for approximately 1 minute. The cord was then doubly clamped and cut and the was placed on the mother's abdomen for further care. The nurses assigned Apgars of 8 at 1 min darian and 9 at 5 minutes. We then obtained cord blood. She received IV oxytocin and using gentle traction on the cord and countertraction the fundus I was able to easily deliver the placenta intact at 7:07 PM. It had a normal three-vessel cord. There were no perineal or vaginal lacerations. She has A positive blood, she is rubella immune and was group B streptococcus unknown. She did receive IV antibiotics while in labor. Her estimated blood loss was approximately 150 cc. Placental Delivery Description: Spontaneous
[2024-03-19] MEDS: WITCH HAZEL 40 PADS/BOX 1 EACH TP (22:31)
[2024-03-19] MEDS: BENZOCAINE-MENTHOL SPRAY 56GM CAN TP (22:31)
[2024-03-20 07:12] LABS: Hematocrit 38.3 % (37.0-47.0); Hemoglobin 12.8 g/dL (12.2-16.2)
[2024-03-20] MEDS: IBUPROFEN 400 MG TABLET 800 MG PO ×2 (08:36→20:51)
[2024-03-20] MEDS: ACETAMINOPHEN 500MG TAB 1000 MG PO ×2 (08:36→20:49)
[2024-03-20] MEDS: LEVOTHYROXINE 100MCG (0.1MG) TAB 200 MCG PO (08:49)
--- NOTE | 2024-03-20 09:05 | EXP.PN ---
Subjective *Date: 03/20/24 *Time: 09:05 Interval history: Julia Rodriguez is a 28-year-old G4, P3 day #1 from a normal spontaneous vaginal delivery. She is bottlefeeding. -Reports pain is moderately controlled. She does endorse some uterine cramping. -Reports she is tolerating p.o. without nausea or vomiting. -Reports her lochia is scant. -Denies any perineal pain. Intact perineum without repair -Ambulating, voiding difficulty or dysuria. Denies chest pain shortness of breath or pain in her legs. No further complaints at this time. Exam Data for Last 24 hours Vital signs and Labs for Last 24 Hours: Temp Pulse Resp BP Pulse Ox O2 Del Method 97.9 F 77 16 102/70 L 100 Room Air 03/19/24 07:09 03/19/24 07:09 03/19/24 07:09 03/19/24 07:09 03/19/24 07:09 03/19/24 07:09 Laboratory Results - last 24 hr 03/20/24 06:40: Hgb 12.8, Hct 38.3 I & O for Last 24 hours: Intake & Output 03/17/24 03/18/24 03/19/24 03/20/24 23:59 23:59 23:59 23:59 Weight 202 lb Narrative: General: patient is alert oriented in no acute distress and responds appropriately to questions. Appears to be in minimal pain. Sitting up in the chair and doing well HEENT: NCAT, EOMI, moist mucous membranes, neck supple with full ROM Cardiovascular: RRR +S1/S2, no murmurs or rubs Pulmonary: Clear to auscultation bilaterally, nonlabored breathing, symmetric chest rise Abdominal: Fundus below the umbilicus, firm, and tenderness appropriate for the period. Extremities: trace edema, no tenderness or cyanosis noted Skin: Normal turgor, intact, warm. Negative for erythema, pallor, petechia, or lesions Neurologic: Negative for sensory or motor deficit Psychiatric: Normal affect, normal thought process, good judgment and insight, no depression or anxious mood appreciated. Assessment and Plan *Assessment and plan (1) (normal spontaneous vaginal delivery): Status: Acute Category: Medical Code(s): O80 - Encounter for full-term uncomplicated delivery Plan Stable. PP D#1 s/p RLTCS and BSG -Doing well. VSS. Serial lochia and fundal checks. -O-/antibody negative. RhoGAM studies pending -GBS was unknown, antibiotics received -Bottle feeding, female -Contraception: Undecided -Follow-up 2 weeks for routine visit and incision check -Dispo: home tomorrow pending mother/ status
--- NOTE | 2024-03-21 08:37 | EXP.DC.SUM ---
General Admission date:: 03/18/24 HPI HPI HPI: She is a 28-year-old 3 para 2 at 38 weeks gestational age. She is admitted for induction of labor. She has had decreased movement over the last week and despite the fact that she has had no abnormal findings on ultrasound and nonstress test she is concerned about her decreased movement. As result of that we have elected to induce her labor at term. O Rh- Rubella immune GBS unknown Hospital Course Hospital Course Hospital Course: She received oral Cytotec and then the following morning was started on IV oxytocin. She progressed under epidural anesthesia to full dilation and delivered spontaneously a liveborn female child at 7:01 PM in the evening of March 19, 2024. She has done well and has remained afebrile with her hospitalization. She is eating and drinking and ambulating. She is bottlefeeding. Her lochia is normal. She has O Rh- blood and the baby was Rh- so she did not receive RhoGAM. She is rubella immune. Her group B strep status was unknown. She did receive IV antibiotics while in labor. She will be discharged home to follow-up with me in approximately 2 weeks time. She will continue with her vitamins and iron. She is given the usual instructions with respect to limiting her activity, driving and sexual activity. Her condition on discharge is stable and improved. Exam Data for Last 24 hours Vital signs and Labs for Last 24 Hours: Temp Pulse Resp BP Pulse Ox O2 Del Method 97.9 F 77 16 102/70 L 100 Room Air 03/19/24 07:09 03/19/24 07:09 03/19/24 07:09 03/19/24 07:09 03/19/24 07:09 03/19/24 07:09 I & O for Last 24 hours: Intake & Output 03/18/24 03/19/24 03/20/24 03/21/24 11:59 11:59 11:59 11:59 Weight 202 lb Constitutional Constitutional: no acute distress *Routine HEENT Exam Head: Present normocephalic *Routine Neck Exam Neck: Present supple *Routine Respiratory Exam Respiratory: Present normal respiratory effort; Absent accessory muscle use DS: Diagnosis Discharge Diagnosis (1) (normal spontaneous vaginal delivery): Status: Acute Code(s): O80 - Encounter for full-term uncomplicated delivery (2) Decreased movement during : Status: Acute Code(s): O36.8190 - Decreased movements, unspecified trimester, not applicable or unspecified Qualifiers: Fetus number: single or unspecified fetus Trimester: third trimester Qualified Code(s): O36.8130 - Decreased movements, third trimester, not applicable or unspecified Meds Home Medications and Allergies Home Medications Medication Instructions Recorded Confirmed Type bupropion HCl 150 mg 24 hr tablet, 150 mg PO DAILY #30 tabs 10/13/23 03/19/24 Rx extended release vit no.95-ferrous 1 tab PO DAILY 10/18/23 03/19/24 History fumarate 28 mg-folic acid 800 mcg tablet () ferrous sulfate 325 mg (65 mg 325 mg PO DAILY #30 tabs 11/14/23 03/19/24 Rx iron) tablet levothyroxine 200 mcg capsule 200 mcg PO DAILY #30 caps 12/27/23 03/19/24 Rx New Prescriptions to Start Prescriptions: Allergies Allergy/AdvReac Type Severity Reaction Status Date / Time No Known Allergies Allergy Verified 03/18/24 13:50 Discharge Plan Disposition Patient Disposition: Home, Self-Care Discharge Order Discharge Orders: Discharge Order (Routine); Ordered 03/21/24 Ordered By: Rey Yee Follow up Plan Follow up with: Rye Yee MD [Staff Physician] - Enter time for follow up Prescriptions/Medication Reconciliation: Continued PNV cmb#95-ferrous fumarate-FA [] 28 mg iron- 800 mcg tablet 1 tab PO DAILY ferrous sulfate 325 mg (65 mg iron) tablet 325 mg PO DAILY Qty: 30 11RF bupropion HCl 150 mg tablet extended release 24 hr 150 mg PO DAILY Qty: 30 3RF levothyroxine 200 mcg capsule 200 mcg PO DAILY Qty: 30 2RF Problem Reconciliation Problems Reviewed?: Yes Patient Discharge Instructions ACTIVITY: No heavy lifting DIET: continue same diet Additional Instructions: *Nothing in the vagina for 6 weeks* *No heavy lifting* *No strenuous activity* Patient Instructions: Depression, Hemorrhage, DI for Labor and Delivery, Vaginal , DI for Pre-eclampsia, [facility] Post Discharge Instructions Providers Primary Care Provider: Adilene Lepe Admparamjit Provider: Rey Yee Attending Provider: Rey Yee
[2024-03-21 08:45] VITALS: BP 114/72; PULSE 70; RESP 16; TEMP 36.7; O2SAT 96
[2024-03-21] MEDS: IBUPROFEN 400 MG TABLET 800 MG PO (09:00)
[2024-03-21] MEDS: ACETAMINOPHEN 500MG TAB 1000 MG PO (09:01)
[2024-03-21] MEDS: LEVOTHYROXINE 100MCG (0.1MG) TAB 200 MCG PO (09:01)
== END 2024-03-21 11:23 | disposition home or self-care (01) | DRG 807 ==
PROVIDERS: Admitting Provider Nurse Practitioner Obstetrics & Gynecology; PCP Nurse Practitioner Family; Visit Provider Nurse Practitioner Obstetrics & Gynecology
DX: O69.81X0 Labor and delivery complicated by cord around neck, without compression, not applicable or unspecified (principal); Z37.0 Single live birth; O36.8130 Decreased fetal movements, third trimester, not applicable or unspecified; Z3A.38 38 weeks gestation of pregnancy
CPT/HCPCS: 59409; 36415; 59025; 76811; 76819; 76820; 85014; 85018; 85025; 86403; 86850; 94761; C1758; G0283; G0463; J0290; J2405; J3010; J7120

== ENCOUNTER 2025-01-17 09:21 | Outpatient (CLI) | payer OTHER, SELFPAY ==
[2025-01-17 17:06] LABS: Basophils % 0.6 % (0.1-2.0); Eosinophils # 0.2 Kmm3 (0.0-0.4); Eosinophils % 3.2 % (0.1-12.0); Hematocrit 40.7 % (37.0-47.0); Hemoglobin 13.5 g/dL (12.2-16.2); Lymphocytes # 2.4 K/mm3 (0.7-4.5); Lymphocytes % 33.3 % (10-50); Mean Corpuscular HGB Conc 33.2 g/dL (31.8-35.4); Mean Corpuscular Volume 93.3 fl (81-99); Mean Platelet Volume 10.7 fl (7.4-10.4); Monocytes # 0.5 K/mm3 (0.1-1.0); Monocytes % 6.3 % (1.7-9.3); Neutrophils % 56.3 % (37.0-80.0); Nucleated Red Blood Cells # 0 10^3/uL; Nucleated Red Blood Cells % 0 %; Platelet Count 260 K/mm3 (142-424); Red Blood Count 4.36 M/mm3 (4.20-5.40); Red Cell Distribution Width 14.3 % (11.5-17.5); Red Cell Distribution Width-SD 48.9 fL; White Blood Count 7.2 K/mm3 (4.8-10.8)
[2025-01-17 17:29] LABS: Albumin Level 4.2 g/dl (3.5-5.0); Chloride 104 mmol/L (98-107); Sodium 137 mmol/L (136-145)
[2025-01-17 17:30] LABS: Potassium 4.5 mmoL/L (3.5-5.1)
[2025-01-17 17:32] LABS: Alanine Aminotransferase 22 U/L (12-78); Albumin/Globulin Ratio 1.4 (1.1-1.8); Alkaline Phosphatase 67 U/L (38-126); Anion Gap 11.5 mEq/L (5-15); Aspartate Amino Transferase 25 U/L (14-36); Bilirubin,Total 0.5 mg/dl (0.2-1.3); Blood Urea Nitrogen 10 mg/dl (7-17); Carbon Dioxide 26 mmol/L (22.0-30.0); Cholesterol 148 mg/dl (140-200); Estimated Glomerular Filt Rate 74 ml/min (>60); GFR (African American) 89 ML/MIN (>60); Iron 79 ug/dL (37-170); Total Protein,Serum 7.2 g/dl (6.3-8.2); Triglycerides 123 mg/dl (30-150); VLDL Cholesterol 25 mg/dL (0-40)
[2025-01-17 17:33] LABS: Calcium 9.4 mg/dl (8.4-10.2); Chol/HDL Ratio 3.4 (1-3.5); Glucose 80 mg/dl (74-100); HDL Cholesterol 43 mg/dl (40-60)
[2025-01-17 17:40] LABS: C-Reactive Protein 3.3 mg/L (0-4)
[2025-01-17 17:44] LABS: Direct LDL Cholesterol 79.24 mg/dL (100-129); Total Iron Binding Capacity 335 ug/dL (265-497)
[2025-01-17 17:49] LABS: 25-OH Vitamin D, Total 31.6 ng/mL (30-100)
[2025-01-17 17:50] LABS: Triiodothryronine (T3) Uptake 33 % (23.5-40.5)
[2025-01-17 17:51] LABS: Free Thyroxine Index 2.9 ug/dL (5.93-13.13); T4 (Thyroxine) 8.7 ug/dl (5.53-11.0)
[2025-01-17 18:08] LABS: Erythrocyte Sedimentation Rate 15 mm/hr (0-20)
[2025-01-17 18:49] LABS: Vitamin B12 512 pg/mL (239-931)
[2025-01-17 20:10] LABS: Hemoglobin A1C 4.8 % (4.0-6.0)
== END 2025-01-17 23:59 | disposition home or self-care (01) ==
LOC: LAB.DROPOF 01-20 09:21
PROVIDERS: PCP Nurse Practitioner Family; Visit Provider Nurse Practitioner Family
DX: E03.9 Hypothyroidism, unspecified (principal); L65.9 Nonscarring hair loss, unspecified; R52 Pain, unspecified; R53.83 Other fatigue; E66.9 Obesity, unspecified; Z68.37 Body mass index [BMI] 37.0-37.9, adult
CPT/HCPCS: 80053; 80061; 82306; 82607; 83036; 83540; 83550; 84436; 84443; 84479; 85025; 85651; 86140

== ENCOUNTER 2025-01-19 18:33 | Emergency (ER) | payer OTHER, SELFPAY ==
[2025-01-19] VITALS (8 sets, daily range): BP systolic 104–120; BP diastolic 68–82; PULSE 79–99; RESP 18–20; TEMP 36.6–36.8; O2SAT 97–100; BMI 37.2
--- NOTE | 2025-01-19 18:53 | ED_ITS ---
Discharge Plan Disposition Patient Disposition: Xfer Other Chief Complaint: Abdominal Pain Prescriptions Prescriptions: No Action Mirena 21 mcg/24 hr (8 yrs) 52 mg intrauterine device 1 device intrauterine levothyroxine 200 mcg tablet See Rx Instructions .ROUTE .COMPLEX Qty: 30 11RF Dose Instruction: TAKE ONE TABLET BY MOUTH ONCE A DAY Rx Instructions: TAKE ONE TABLET BY MOUTH ONCE A DAY bupropion HCl 150 mg tablet extended release 24 hr 150 mg PO DAILY Qty: 30 0RF Referrals Follow up/Referrals: Provider,Referral, MD [Referring] - See instructions Clinical Impressions Clinical Impression: Food bolus obstruction of intestine, Eosinophilic esophagitis Print Language Print Language: [place] Discharge ED Provider: Laina Riley General Adult HPI General Chief complaint: Abdominal Pain Stated complaint: AO 4-20 choking on steak Time Seen by Provider: 01/19/25 18:39 Mode of Arrival: Ambulatory Source of Information: Patient Description of Symptoms (Recalled from ER Triage Doc. by RN): patient states about 30 mins ago she was eating steak and feels it is stuck in her esophagus. she denies any shortness of breath or difficulty breathing. she has a history of this happening and history of EOE History of Present Illness HPI narrative: This patient is a 29-year-old female with a history of eosinophilic esophagitis, prior cholecystectomy, prior tonsillectomy/adenoidectomy, prior thyroidectomy now on levothyroxine, and prior appendectomy presenting to the emergency department for evaluation with concern for a piece of steak stuck in her throat. Patient states that she was eating steak around 5 PM and felt to get stuck. She is not been able to tolerate any oral intake of secretions, liquid, or anything since then. She notes that she had felt progressively worsening dysphagia over the last couple weeks and had not had a scope in a long time. Usually she can get it to pass on her own, but not this time. Related Data Home Medications ?Medication ?Instructions ?Recorded ?Confirmed levonorgestrel (Mirena) 1 device intrauterine 06/04/24 01/17/25 Previous Rx's ?Medication ?Instructions ?Recorded levothyroxine 200 mcg tablet See Rx Instructions .Route 04/03/24 .COMPLEX #30 tabs bupropion HCl 150 mg 24 hr tablet, 150 mg PO DAILY #30 tabs 12/16/24 extended release Allergies Allergy/AdvReac Type Severity Reaction Status Date / Time No Known Allergies Allergy Verified 01/17/25 10:56 [facility] Disclaimer: The information contained in this section may have been updated after the patient was seen, as this information can be updated by other users. Medical History Dyspareunia depression History of hypothyroidism Vertigo Surgical History Hx of cholecystectomy History of appendectomy History of tonsillectomy and adenoidectomy History of thyroidectomy Family History Other No significant family history Social History Smoking Status: Never smoker alcohol intake: never substance use type: denies use current occupational status: other Travel in the last 8 weeks: None household members: spouse marital status: number of children: 1 service: No half-way: No sexually active: Yes Have you lived/traveled outside [place] in past 30 days?: No Contact w/someone who lives/traveled outside US past 30 days?: No Exposure to someone with infectious disease in past 14 days?: No Do you have a fever (greater than 100.4 F or 38 C)?: No Have you tested positive for COVID-19: No Exposed to someone with COVID-19 in past 14 days?: No Do you have a sore throat?: No Do you have a cough?: No Do you have any weakness?: No Do you have any diarrhea?: No Are you experiencing any unusual bleeding?: No Do you have any muscle aches/pain?: No Do you have any abdominal pain?: No Are you experiencing loss of taste or smell?: No Other Medical History Have you received the Flu Vaccine for this season: No Have you received the Pneumonia Vaccine: No ROS Obtained: Yes All systems reviewed & no additional complaints except as documented Physical Exam General General appearance: alert and in no apparent distress Head Head exam: atraumatic and normocephalic Eye Eye exam: Present normal appearance, PERRL and EOMI ENT ENT exam: Present normal exam, normal oropharynx, mucous membranes moist and normal external ear exam Neck Neck exam: Present normal inspection, full ROM and trachea midline; Absent tenderness Chest Chest inspection: Present normal inspection and symmetric chest wall rise; Absent tenderness Respiratory Respiratory exam: Present normal lung sounds bilaterally; Absent respiratory distress, wheezes, stridor or accessory muscle use Cardiovascular Cardiovascular exam: Present regular rate and normal rhythm Abdominal Exam Abdominal exam: Present soft; Absent distention, tenderness or guarding Extremities Exam Extremities exam: Present normal inspection, full ROM and normal capillary refill; Absent tenderness or edema Back Exam Back exam: Present normal inspection and full ROM; Absent tenderness Neurological Exam Neurological exam: Present alert, oriented X3, CN II-XII intact and normal gait; Absent motor sensory deficit Psychiatric Psychiatric exam: Present normal affect and normal mood Skin Skin exam: Present warm and dry Medical Decision Making Medical Records Medical records reviewed: Yes I reviewed the patient's medical records. Screening: Per USPSTF and CDC recommendations, given the prevalence of disease in our region, it is our hospital?s policy to screen for HIV and viral Hepatitis for all patients aged 18 and over and those with ongoing risk factors. Dougie Inquiry Pt receiving controlled substance: No Vital Signs: 01/19/25 18:42 Temperature 98.1 F Temperature Source Oral Pulse Rate [Right Radial] 99 H Respiratory Rate 18 Blood Pressure [Right Arm] 120/82 Blood Pressure Mean [Right Arm] 94 Blood Pressure Source [Right Arm] Automatic Cuff Blood Pressure Position [Right Arm] Sitting 02 Sat by Pulse Oximetry 100 Oxygen Delivery Method Room Air Lab Data Lab results reviewed: Yes I reviewed the patient's lab results. Orders (Tests/Meds): ORDERS Category Date Time Status Consult to General Surgery [CONS] Stat Cons 01/19/25 18:50 Ordered HIV Combo Stat Lab 01/19/25 19:00 Received Hepatitis C Ab Qual. W/ RFX Stat Lab 01/19/25 19:00 Received Urine , HCG Qual. Stat Lab 01/19/25 18:39 Ordered Medical Decision Narrative: In summary, this patient is a 29-year-old female presenting to the Emergency Department for evaluation of globus sensation after eating steak. Differential diagnoses considered include but are not limited to food bolus, esophagitis, Laura-Gonzales tear. Ruling out the most morbid conditions drove assessment. It should be noted patient's history includes eosinophilic esophagitis, obesity, hypothyroidism which may or may not be at goal therapy. This complicates all aspects of care by increasing patient's risk for morbidity. I reviewed patient's past medical records and noted prior primary care evaluations for maintenance of health as well as gynecology evaluations. She has an IUD in place. On exam, the patient is sitting upright in no acute distress. She has no drooling, stridor, trismus. She is vomiting anytime she tries to drink and after a while swallowing her secretions. At this likely is a food bolus in the setting of eosinophilic esophagitis. I considered obtaining labs and imaging, however I do not feel that it is indicated as it would likely not guide changer. I tried having the patient drink cold, carbonated drinks but she is not able to tolerate this. Given this, I called and had an interactive discussion with Dr. Sanchez general surgeon who is taking the patient for endoscopy for retrieval of food bolus. Patient left the ED in stable condition Critical Care Critical Care Time Critical Care Time: No
--- NOTE | 2025-01-19 19:07 | PC.NURSE ---
patient attempted drinking fluids to resolve food bolus which was unsucessful, she began to vomit immediatley. iv started at this time. call light in reach no other concerns voiced at this time
--- NOTE | 2025-01-19 19:14 | PC.NURSE ---
Dr Norman at bedside
--- NOTE | 2025-01-19 19:18 | PC.NURSE ---
Report received from Emerita RN Pt resting quietly in bed Skin pink warm and dry Resp full and easy Speech clear and appropriate Pt aware of plans for EGD to remove food bolus
--- NOTE | 2025-01-19 19:25 | PC.NURSE ---
Surgery and OR Nurse Monet GUERRERO at bedside.
--- NOTE | 2025-01-19 19:25 | PC.NURSE ---
Pt to OR via wheelchair.
--- NOTE | 2025-01-19 19:28 | EXP.GEN.HP ---
HPI HPI HPI: This is a 29-year-old female who presented to the emergency department with concerns regarding an impacted food bolus. Forwarded from emergency department evaluation: This patient is a 29-year-old female with a history of eosinophilic esophagitis, prior cholecystectomy, prior tonsillectomy/adenoidectomy, prior thyroidectomy now on levothyroxine, and prior appendectomy presenting to the emergency department for evaluation with concern for a piece of steak stuck in her throat. Patient states that she was eating steak around 5 PM and felt to get stuck. She is not been able to tolerate any oral intake of secretions, liquid, or anything since then. She notes that she had felt progressively worsening dysphagia over the last couple weeks and had not had a scope in a long time. Usually she can get it to pass on her own, but not this time. Medical Decision Narrative: In summary, this patient is a 29-year-old female presenting to the Emergency Department for evaluation of globus sensation after eating steak. Differential diagnoses considered include but are not limited to food bolus, esophagitis, Laura-Gonzales tear. Ruling out the most morbid conditions drove assessment. It should be noted patient's history includes eosinophilic esophagitis, obesity, hypothyroidism which may or may not be at goal therapy. This complicates all aspects of care by increasing patient's risk for morbidity. I reviewed patient's past medical records and noted prior primary care evaluations for maintenance of health as well as gynecology evaluations. She has an IUD in place. On exam, the patient is sitting upright in no acute distress. She has no drooling, stridor, trismus. She is vomiting anytime she tries to drink and after a while swallowing her secretions. At this likely is a food bolus in the setting of eosinophilic esophagitis. I considered obtaining labs and imaging, however I do not feel that it is indicated as it would likely not traveler changer. I tried having the patient drink cold, carbonated drinks but she is not able to tolerate this. Given this, I called and had an interactive discussion with Dr. Sanchez general surgeon who is taking the patient for endoscopy for retrieval of food bolus. Patient left the ED in stable condition [facility] Disclaimer: The information contained in this section may have been updated after the patient was seen, as this information can be updated by other users. Medical History Dyspareunia depression History of hypothyroidism Vertigo Surgical History Hx of cholecystectomy History of appendectomy History of tonsillectomy and adenoidectomy History of thyroidectomy Family History Other No significant family history Social History Smoking Status: Never smoker alcohol intake: never substance use type: denies use current occupational status: other Travel in the last 8 weeks: None household members: spouse marital status: number of children: 1 service: No residential: No sexually active: Yes Have you lived/traveled outside US in past 30 days?: No Contact w/someone who lives/traveled outside US past 30 days?: No Exposure to someone with infectious disease in past 14 days?: No Do you have a fever (greater than 100.4 F or 38 C)?: No Have you tested positive for COVID-19: No Exposed to someone with COVID-19 in past 14 days?: No Do you have a sore throat?: No Do you have a cough?: No Do you have any weakness?: No Do you have any diarrhea?: No Are you experiencing any unusual bleeding?: No Do you have any muscle aches/pain?: No Do you have any abdominal pain?: No Are you experiencing loss of taste or smell?: No Other Medical History Have you received the Flu Vaccine for this season: No Have you received the Pneumonia Vaccine: No Meds Home Medications and Allergies Home Medications ?Medication ?Instructions ?Recorded ?Confirmed ?Type levothyroxine 200 mcg tablet See Rx Instructions .Route 04/03/24 01/17/25 Rx .COMPLEX #30 tabs levonorgestrel (Mirena) 1 device intrauterine 06/04/24 01/17/25 History bupropion HCl 150 mg 24 hr tablet, 150 mg PO DAILY #30 tabs 12/16/24 01/17/25 Rx extended release pantoprazole 40 mg tablet,delayed 40 mg PO DAILY #90 tabs 01/19/25 Rx release (Protonix) New Prescriptions to Start Prescriptions: pantoprazole [Protonix] EmersonKarthikeyan David Allergies Allergy/AdvReac Type Severity Reaction Status Date / Time No Known Allergies Allergy Verified 01/17/25 10:56 Exam Data for Last 24 hours Vital signs and Labs for Last 24 Hours: Temp Pulse Resp BP Pulse Ox O2 Del Method 98.1 F 99 H 18 120/82 100 Room Air 01/19/25 18:42 01/19/25 18:42 01/19/25 18:42 01/19/25 18:42 01/19/25 18:42 01/19/25 18:42 I & O for Last 24 hours: Intake & Output 01/17/25 01/18/25 01/19/25 01/20/25 11:59 11:59 11:59 11:59 Weight 210 lb Constitutional Constitutional: no acute distress *Routine HEENT Exam Head: Present normocephalic Eye: Present EOMI ENT: Present mucous membranes moist *Routine Neck Exam Neck: Present full ROM *Routine Respiratory Exam Respiratory: Absent respiratory distress *Routine Cardiovascular Exam Cardiovascular: Absent tachycardia *Routine Abdominal Exam Abdominal: Present soft *Routine Rectal Exam Rectal:: deferred *Routine Genitalia Exam Genitalia:: deferred *Routine Extremities Exam Extremities: Present full ROM *Routine Skin Exam Skin: Absent erythema *Routine Neurological Exam Neurological: Present alert Assessment and Plan *Assessment and plan (1) Food bolus obstruction of intestine: Status: Acute Category: Medical Code(s): K56.699 - Other intestinal obstruction unspecified as to partial versus complete obstruction; [id number] - Food entering into or through a natural orifice, initial encounter Plan: Patient transferred to the endoscopy suite for esophagogastroscopy for foreign body retrieval I have discussed the risks and benefits including, but not limited to: Bleeding Infection Damage to surrounding tissue Inherent risks of sedation The patient agrees to proceed. (2) Eosinophilic esophagitis: Status: Acute Category: Medical Code(s): K20.0 - Eosinophilic esophagitis
--- NOTE | 2025-01-19 19:32 | HMH.SCOPE ---
Procedure: Date: 01/19/25 Patient Date of :: 1995 Procedure Performed:: Esophagogastroscopy for distal esophageal foreign body removal Indications:: Esophageal foreign body History of eosinophilic esophagitis Performing Provider:: Karthikeyan Norman MD Referring Provider:: . Sedation:: Monitored anesthesia care Procedure:: After informed consent was obtained the patient was taken to the endoscopy suite. Sedation ensued after the patient was transferred to the left lateral decubitus position. Pulse, blood pressure, and oxygen saturation were monitored throughout the procedure. The endoscope was advanced to the distal esophagus where foreign body was encountered. The E-suction device was attached to the endoscope. The endoscope was reintroduced. Food bolus removed by spontaneous progression into the gastric lumen prior to attempted removal via E-suction device (see findings below). Gastroscope was then advanced into the gastric lumen (retroflexion within the gastric lumen was accomplished). The gastroscope was carefully removed and the patient was transferred to recovery in stable condition. Please see findings and specimens below for detail. Findings:: Impacted food bolus just proximal to the gastroesophageal junction Food bolus spontaneously progressed into gastric lumen prior to retrieval attempt with the suction device Mucosal rent between 25 and 32 cm (at site of food bolus) No obvious full-thickness injury Recommendations:: Proton pump enervation Clear liquid diet for 24 hours...followed by full liquid diet for 24 hours...followed by soft diet Outpatient follow-up (consider gastroenterology consultation) Complications:: No immediate Estimated blood obtained (mL): 0 Colonoscopy Component Colonoscopy Component Was a colonoscopy performed during today's procedure?: No
[2025-01-19 19:34] LABS: Urine Pregnancy, HCG Qual. Negative (Negative)
[2025-01-19 19:58] LABS: HIV Combo NEGATIVE (Negative)
[2025-01-19 20:06] LABS: Hepatitis C Ab Qual. W/ RFX NEGATIVE (Negative)
--- NOTE | 2025-01-19 20:08 | XR_ITS ---
PROCEDURE INFORMATION: Exam: XR Complete Acute Abdomen Series Including Chest Exam date and time: 01/19/2025 8:17 PM Age: 29 years old Clinical indication: Abdominal pain; Additional info: Chest pain folowing procedure TECHNIQUE: Imaging protocol: Radiologic exam. Complete acute abdomen series, including 2 or more views of the abdomen and a single view chest. COMPARISON: CR XR CHEST 2V 01/18/2024 3:48 PM FINDINGS: Lungs: Normal. No consolidation. Pleural spaces: Normal. No pleural effusions. No pneumothorax. Heart/Mediastinum: Normal. No cardiomegaly. Gastrointestinal tract: Normal. No bowel dilation. Intraperitoneal space: Normal. No free air. Bones/joints: Normal. No acute fracture. Soft tissues: Normal. IMPRESSION: No acute findings.
[2025-01-19] MEDS: KETOROLAC 30MG/ML VIAL 30 MG (20:20)
[2025-01-19] MEDS: ONDANSETRON 4MG/2ML VIAL 4 MG (20:30)
--- NOTE | 2025-01-19 21:28 | SUR.PHASEII ---
2004- patient woke up post procedure having 7/10 chest pain that was stabbing in nature and radiated to the lungs . Dr Norman notified immediatley, VO given got a Chest/abdomen xray. 2005- radiology called, on the way 2007- radiology at BS 2054- called radiology for eta on read-out of radiology study done on patient, stated 5 minutes 2100- results back, went over d/c instruction with patients since there were no acute findings and chest pain likely from procedure itself. Patient desired to go back to the ER to be further evaluated. 2109- called ER to let them know patient desired to come back down and would give BS report. ER stated that brenda patient would be back in room 8. 2116- spoke to Dr Norman to let him know brenda the patient desired to return to the ER. 2119- patient taken back to ER via stretcher. report given at BS to receiving nurse.
== END 2025-01-19 19:30 | disposition home or self-care (01) ==
PROVIDERS: Surgery; Emergency Provider Emergency Medicine; PCP Nurse Practitioner Family
PROC: 0DJ08ZZ Inspection of Upper Intestinal Tract, Via Natural or Artificial Opening Endoscopic (ICD-10-PCS; CPT 43247; principal; 2025-01-19 19:00)
DX: K56.699 Other intestinal obstruction unspecified as to partial versus complete obstruction (principal); K20.0 Eosinophilic esophagitis; W44.F3XA Food entering into or through a natural orifice, initial encounter; Z11.59 Encounter for screening for other viral diseases; Z11.4 Encounter for screening for human immunodeficiency virus [HIV]
CPT/HCPCS: 43247; 74021; 80074; 81025; 87389; 99284; J1885; J2003; J2405; J2704

== ENCOUNTER 2025-01-19 21:22 | Observation (INO) | payer OTHER, SELFPAY ==
[2025-01-19 21:32] VITALS: BP 99/63; PULSE 87; RESP 16; TEMP 36.8; O2SAT 99; BMI 38.4
--- NOTE | 2025-01-19 21:32 | ECG_ITS ---
APPROVED REPORT Exam: Resting ECG HR:79 bpm ECG Measurements Heart Rate 79 AXES LA 142 P 73 QRSd 90 QRS 83 QT 351 T 67 QTc 385 Conclusion SINUS RHYTHM WITH SINUS ARRHYTHMIA LOW QRS VOLTAGE IN PRECORDIAL LEADS [QRS DEFLECTION < 1.0 mV IN CHEST LEADS] POSSIBLE ANTERIOR MYOCARDIAL INFARCTION , PROBABLY OLD [30 ms Q WAVE IN V3/V4, OR R < 0.2 mV IN V4] No STEMI Electronically signed by : TAMANNA GILLESPIE, 01/20/2025 04:20:39
--- NOTE | 2025-01-19 21:37 | PC.NURSE ---
Pt in sinus ryhtm per continuous heart monitor
--- NOTE | 2025-01-19 21:45 | CT_ITS ---
PROCEDURE INFORMATION: Exam: CTA Chest With Contrast Exam date and time: 01/19/2025 10:11 PM Age: 29 years old Clinical indication: Pain; Chest pressure; Additional info: Egd 1 hour ago, severe chest pain, eval perf vs pe TECHNIQUE: Imaging protocol: Computed tomographic angiography of the chest with contrast. Exam focused on the arteries. 3D rendering (Not supervised by radiologist): MIP and/or 3D reconstructed images were created by the technologist. Radiation optimization: All CT scans at this facility use at least one of these dose optimization techniques: automated exposure control; mA and/or kV adjustment per patient size (includes targeted exams where dose is matched to clinical indication); or iterative reconstruction. Contrast material: ISOVUE; Contrast volume: 70 ml; Contrast route: INTRAVENOUS (IV); COMPARISON: CR XR ACUTE ABDOMEN SERIES 01/19/2025 8:17 PM FINDINGS: Pulmonary arteries: Subsegmental pulmonary arteries suboptimally evaluated in visualized secondary to image degradation from breathing artifacts. No central or segmental pulmonary arterial intraluminal filling defect identified. Aorta: Unremarkable. No aortic aneurysm. No aortic dissection. Lungs: Unremarkable. No consolidation. No masses. Pleural spaces: Unremarkable. No pneumothorax. No pleural effusion. Heart: Pericardial effusion with thickness measuring up to 2.1 cm. Lymph nodes: Unremarkable. No enlarged lymph nodes. Bones/joints: Unremarkable. No acute fracture. Soft tissues: Unremarkable. IMPRESSION: 1. No central or segmental pulmonary arterial embolism identified. 2. Pericardial effusion.
[2025-01-19 21:51] LABS: Basophils % 0.4 % (0.1-2.0); Eosinophils # 0.2 Kmm3 (0.0-0.4); Eosinophils % 2.9 % (0.1-12.0); Hematocrit 36.1 % (37.0-47.0); Hemoglobin 12.3 g/dL (12.2-16.2); Lymphocytes # 2.1 K/mm3 (0.7-4.5); Lymphocytes % 30.4 % (10-50); Mean Corpuscular HGB Conc 34.1 g/dL (31.8-35.4); Mean Corpuscular Hemoglobin 31.4 pg (27.0-31.2); Mean Corpuscular Volume 92.1 fl (81-99); Mean Platelet Volume 10.2 fl (7.4-10.4); Monocytes # 0.5 K/mm3 (0.1-1.0); Monocytes % 6.6 % (1.7-9.3); Neutrophils # 4.1 K/mm3 (1.8-7.8); Neutrophils % 59.4 % (37.0-80.0); Nucleated Red Blood Cells # 0 10^3/uL; Nucleated Red Blood Cells % 0 %; Platelet Count 232 K/mm3 (142-424); Red Blood Count 3.92 M/mm3 (4.20-5.40); Red Cell Distribution Width-SD 47.3 fL; White Blood Count 6.8 K/mm3 (4.8-10.8)
[2025-01-19] MEDS: MORPHINE 4MG/ML SYRINGE 4 MG IV (21:56)
[2025-01-19] MEDS: ACETAMINOPHEN 1,000MG/100ML VIAL 1000 MG IV (21:56)
[2025-01-19] MEDS: FAMOTIDINE 20MG/2ML VIAL 20 MG IV (21:56)
[2025-01-19] MEDS: ONDANSETRON 4MG/2ML VIAL 4 MG IV ×2 (21:56→23:40)
--- NOTE | 2025-01-19 21:59 | CT_ITS ---
PROCEDURE INFORMATION: Exam: CT Chest Without Contrast; Diagnostic Exam date and time: 01/19/2025 10:20 PM Age: 29 years old Clinical indication: Pain; Chest pressure; Additional info: Egd, chest pain, eval perf - gastrograffin TECHNIQUE: Imaging protocol: Diagnostic computed tomography of the chest without contrast. Radiation optimization: All CT scans at this facility use at least one of these dose optimization techniques: automated exposure control; mA and/or kV adjustment per patient size (includes targeted exams where dose is matched to clinical indication); or iterative reconstruction. Other contrast: Oral, gastrografin , 30 mL; COMPARISON: CT ANGIO CHEST PE PROTOCOL 01/19/2025 10:11 PM FINDINGS: Lungs: Unremarkable. No consolidation. No masses. Pleural spaces: Unremarkable. No pneumothorax. No pleural effusion. Heart: Pericardial effusion with effusion thickness measuring up to 2.2 cm. Coronary arteries: No atherosclerotic calcification of coronary arteries. Lymph nodes: Unremarkable. No enlarged lymph nodes. Vasculature: Unremarkable. No aortic aneurysm. Bones/joints: Unremarkable. No acute fracture. Soft tissues: Unremarkable. IMPRESSION: Pericardial effusion.
[2025-01-19 22:00] VITALS: BP 104/67
[2025-01-19] MEDS: DIATRIZOATE MEG 66% & DIATRIZOATE NA 10% 30ML UDC 30 ML PO (22:03)
[2025-01-19 22:05] LABS: Alanine Aminotransferase 21 U/L (12-78); Albumin Level 3.8 g/dl (3.5-5.0); Albumin/Globulin Ratio 1.2 (1.1-1.8); Alkaline Phosphatase 65 U/L (38-126); Anion Gap 11.9 mEq/L (5-15); Aspartate Amino Transferase 33 U/L (14-36); Bilirubin,Total 0.4 mg/dl (0.2-1.3); Blood Urea Nitrogen 12 mg/dl (7-17); Calcium 8.7 mg/dl (8.4-10.2); Carbon Dioxide 27 mmol/L (22.0-30.0); Chloride 103 mmol/L (98-107); Creatinine Clearance Estimated 155 mL/min (50-200); Estimated Glomerular Filt Rate 84 ml/min (>60); GFR (African American) 102 ML/MIN (>60); Globulin 3.2 g/dL (1.3-3.2); Glucose 93 mg/dl (74-100); Lipase 77 U/L (23-300); Potassium 3.9 mmoL/L (3.5-5.1); Sodium 138 mmol/L (136-145)
--- NOTE | 2025-01-19 22:07 | PC.NURSE ---
pt to CT at this time
[2025-01-19 22:10] LABS: D-Dimer 0.63 ug/mL (0.0-0.5)
[2025-01-19 22:19] LABS: Troponin I < 0.01 ng/ml (0.00-0.034)
[2025-01-19] MEDS: 0.9 % SODIUM CHLORIDE 50 ML VIAL IV (22:19)
[2025-01-19] MEDS: SODIUM CHLORIDE 0.9% 10ML SYR (RAD ONLY) 10 ML IV (22:19)
--- NOTE | 2025-01-19 22:19 | ED_ITS ---
Discharge Plan Disposition Patient Disposition: Admitted Clinical Impressions Clinical Impression: Chest pain, Pericardial effusion, Nausea & vomiting Discharge ED Provider: Laina Riley General Chief Complaint: Chest Pain Stated Complaint: CP Time Seen by Provider: 01/19/25 21:25 Mode of Arrival: Wheelchair Source of Information: Patient Description of Symptoms (Recalled from ER Triage Doc. by RN): Pt had EGD now having chest pain History of Present Illness HPI narrative: This patient is a 29-year-old female with history of obesity, hypothyroidism, eosinophilic esophagitis who just went up to the OR this evening for EGD for food bolus coming back down with concern for chest pain post procedurally. Patient reports that since she woke up, she has been having severe stabbing chest pain that radiates around her left breast and feels like her left lung is hurting. It is worse with breathing and swallowing. I had an indirect discussion with Dr. Sanchez with general surgery who sent the patient down for evaluation and noted he recommended Gastrografin swallow to evaluate for esophageal injury, though he felt it was unlikely because the food bolus passed on its own and did not require any retrieval. He did introduce the scope as well as a suction device. Related Data Home Medications ?Medication ?Instructions ?Recorded ?Confirmed levonorgestrel (Mirena) 1 device intrauterine ONCE 06/04/24 01/20/25 levothyroxine 200 mcg tablet 200 mcg PO DAILY 01/20/25 01/20/25 Previous Rx's ?Medication ?Instructions ?Recorded bupropion HCl 150 mg 24 hr tablet, 150 mg PO DAILY #30 tabs 12/16/24 extended release pantoprazole 40 mg tablet,delayed 40 mg PO DAILY #90 tabs 01/19/25 release (Protonix) Allergies Allergy/AdvReac Type Severity Reaction Status Date / Time No Known Allergies Allergy Verified 01/17/25 10:56 [facility] Disclaimer: The information contained in this section may have been updated after the patient was seen, as this information can be updated by other users. Medical History Dyspareunia depression History of hypothyroidism Vertigo Surgical History Hx of cholecystectomy History of appendectomy History of tonsillectomy and adenoidectomy History of thyroidectomy Family History Other No significant family history Social History Smoking Status: Never smoker alcohol intake: never substance use type: denies use current occupational status: other Travel in the last 8 weeks: None household members: spouse marital status: number of children: 1 service: No halfway: No sexually active: Yes Have you lived/traveled outside [place] in past 30 days?: No Contact w/someone who lives/traveled outside US past 30 days?: No Exposure to someone with infectious disease in past 14 days?: No Do you have a fever (greater than 100.4 F or 38 C)?: No Have you tested positive for COVID-19: No Exposed to someone with COVID-19 in past 14 days?: No Do you have a sore throat?: No Do you have a cough?: No Do you have any weakness?: No Do you have any diarrhea?: No Are you experiencing any unusual bleeding?: No Do you have any muscle aches/pain?: No Do you have any abdominal pain?: No Are you experiencing loss of taste or smell?: No Other Medical History Have you received the Flu Vaccine for this season: No Have you received the Pneumonia Vaccine: No ROS Obtained: Yes All systems reviewed & no additional complaints except as documented Physical Exam General General appearance: alert, in no apparent distress and obese Head Head exam: atraumatic and normocephalic Eye Eye exam: Present normal appearance, PERRL and EOMI ENT ENT exam: Present normal exam, normal oropharynx, mucous membranes moist and normal external ear exam Neck Neck exam: Present normal inspection, full ROM and trachea midline; Absent tenderness Chest Chest inspection: Present normal inspection and symmetric chest wall rise; Absent tenderness Respiratory Respiratory exam: Present normal lung sounds bilaterally; Absent respiratory distress, wheezes, stridor or accessory muscle use Cardiovascular Cardiovascular exam: Present regular rate and normal rhythm Abdominal Exam Abdominal exam: Present soft; Absent distention, tenderness or guarding Extremities Exam Extremities exam: Present normal inspection, full ROM and normal capillary refill; Absent tenderness or edema Back Exam Back exam: Present normal inspection and full ROM; Absent tenderness Neurological Exam Neurological exam: Present alert, oriented X3, CN II-XII intact and normal gait; Absent motor sensory deficit Psychiatric Psychiatric exam: Present normal affect and normal mood Skin Skin exam: Present warm and dry HEART Score HEART Score HEART Score assessment performed?: Yes History (anamnesis): Slightly suspicious ECG: Normal Age: <45 years Risk factors: 1-2 risk factors Troponin: </= normal limit HEART Score: 1 Procedures Risk/Benefits of Procedure(s) Were Explained: Yes Limited Ultrasound Findings:: Limited cardiac ultrasound Indication: Chest pain Identified cardiac views: [-Cardiac parasternal long axis] [-Cardiac parasternal short axis] [-Cardiac apical four-chamber] Findings: [-Cardiac activity present -Gross wall motion normal -Pericardial effusion present without tamponade -Right heart strain absent] Impression: - Pericardial effusion without tamponade Images were saved to permanent archive The study was technically adequate CPT: 54315 This study was performed by me, and I personally interpreted all images/videos. Based on my clinical judgement, these images were adequate and did not necessitate further imaging. Critical Care Critical Care Time Critical Care Time: Yes Attestation: On 01/19/25, the high probability of a clinically significant, sudden or life threatening deterioration of the following system(s) required my full and direct attention, intervention and personal management. The time I documented below is in addition to time spent performing reported procedures but includes the following listed in this critical care notation. Total Time Total Critical Care Time: 35 Medical Decision Making Dougie Inquiry Pt receiving controlled substance: No Vital Signs Vital Signs: 01/19/25 21:32 01/19/25 22:00 01/19/25 22:25 Temperature 98.2 F Temperature Source Oral Pulse Rate 90 Pulse Rate [Right Brachial] 87 Respiratory Rate 16 20 Blood Pressure 104/67 L Blood Pressure [Right Arm] 99/63 L Blood Pressure Mean 74 Blood Pressure Mean [Right Arm] 75 Blood Pressure Source Blood Pressure Source [Right Arm] Automatic Cuff Blood Pressure Position Blood Pressure Position [Right Arm] Supine 02 Sat by Pulse Oximetry 99 99 Oxygen Delivery Method Room Air 01/19/25 22:30 01/19/25 22:30 01/19/25 23:00 Temperature Temperature Source Pulse Rate 85 Pulse Rate [Right Brachial] Respiratory Rate 14 Blood Pressure 112/76 104/69 L Blood Pressure [Right Arm] Blood Pressure Mean 88 83 Blood Pressure Mean [Right Arm] Blood Pressure Source Blood Pressure Source [Right Arm] Blood Pressure Position Blood Pressure Position [Right Arm] 02 Sat by Pulse Oximetry 98 Oxygen Delivery Method 01/20/25 00:12 Temperature 98.0 F Temperature Source Oral Pulse Rate 85 Pulse Rate [Right Brachial] Respiratory Rate 20 Blood Pressure 104/69 L Blood Pressure [Right Arm] Blood Pressure Mean Blood Pressure Mean [Right Arm] Blood Pressure Source Automatic Cuff Blood Pressure Source [Right Arm] Blood Pressure Position Sitting Blood Pressure Position [Right Arm] 02 Sat by Pulse Oximetry Oxygen Delivery Method Room Air Lab Data Labs: Lab Results 01/19/25 21:45: WBC 6.8, RBC 3.92 L, Hgb 12.3, Hct 36.1 L, MCV 92.1, MCH 31.4 H, MCHC 34.1, RDW 14.0, Plt Count 232, MPV 10.2, Neut % (Auto) 59.4, Lymph % (Auto) 30.4, [place] % (Auto) 6.6, Eos % (Auto) 2.9, Baso % (Auto) 0.4, Neut # (Auto) 4.1, Lymph # (Auto) 2.1, [place] # (Auto) 0.5, Eos # (Auto) 0.2, Baso # (Auto) 0.0, D- Dimer 0.63 H, Sodium 138, Potassium 3.9, Chloride 103, Carbon Dioxide 27, Anion Gap 11.9, BUN 12, Creatinine 0.80, Estimated Creat Clear 155, Estimated GFR 84, Est GFR ( Amer) 102, Glucose 93, Calcium 8.7, Total Bilirubin 0.4, AST 33 D, ALT 21, Alkaline Phosphatase 65, Troponin I < 0.01, Total Protein 7.0, Albumin 3.8, Globulin 3.2, Albumin/Globulin Ratio 1.2, Lipase 77 01/19/25 23:05: TSH 0.75 D, Thyroxine (T4) 6.8 01/20/25 00:02: Troponin I < 0.01 01/19/25 21:45 01/19/25 21:45 Response Orders (Tests/Meds): ED MEDICATIONS Generic Name Dose Route Start Last Admin Trade Name Freq PRN Reason Stop Dose Admin Acetaminophen 650 mg 01/19/25 23:47 Acetaminophen 325mg Tab PO 02/18/25 23:46 Q4HP PRN Fever or Mild Pain (1-3) Ibuprofen 800 mg 01/19/25 23:55 Ibuprofen 800 Mg Tablet PO 02/18/25 23:54 Q8 [facility] Morphine Sulfate 2 mg 01/20/25 00:15 Morphine 2mg/Ml Syringe IV 02/19/25 00:14 Q6H [facility] Pantoprazole Sodium 40 mg 01/20/25 00:10 Pantoprazole 40mg Vial IV 02/19/25 00:09 BID [facility] Promethazine HCl 12.5 mg 01/20/25 00:15 Promethazine Hcl 25mg/Ml 1ml Vial IV 02/19/25 00:14 Q6H [facility] Sodium Chloride 8 ml 01/19/25 21:32 Sodium Chloride 0.9% 10ml Vial IV 02/18/25 21:31 NEEDED PRN dilute pepcid Sodium Chloride 10 ml 01/19/25 22:18 01/19/25 22:19 Sodium Chloride 0.9% 10ml Syr (Rad Only) IV 02/18/25 22:17 10 ml NEEDED PRN Administration Maintain IV Site Sodium Chloride 25 ml 01/20/25 00:08 Sodium Chloride 0.9% 25ml Bag IV 01/20/25 00:09 ONCE ONE Discontinued Medications Generic Name Dose Route Start Last Admin Trade Name Freq PRN Reason Stop Dose Admin Acetaminophen 1,000 mg 01/19/25 21:32 01/19/25 21:56 Acetaminophen 1,000mg/100ml Vial IV 01/19/25 21:33 1,000 mg ONCE ONE Administration Belladonna Alkaloids 60 ml 01/19/25 23:43 01/19/25 23:49 Belladonna Alkaloids 60 Ml Ml PO 01/19/25 23:44 60 ml ONCE ONE Administration Diatrizoate Meglum/Diatrizoate Sod 30 ml 01/19/25 21:45 01/19/25 22:03 Diatrizoate Anette 66% & Diatrizoate Na 10% 30ml Udc PO 01/19/25 21:46 30 ml ONCE ONE Administration Famotidine 20 mg 01/19/25 21:32 01/19/25 21:56 Famotidine 20mg/2ml Vial IV 01/19/25 21:33 20 mg ONCE ONE Administration Iopamidol 70 ml 01/19/25 22:18 01/19/25 22:22 Iopamidol-370 (76%);100ml Bottle IV 01/19/25 22:19 70 ml ONCE ONE Administration Ketorolac Tromethamine 15 mg 01/19/25 23:43 01/19/25 23:50 Ketorolac 30mg/Ml Vial IV 01/19/25 23:44 15 mg ONCE ONE Administration Morphine Sulfate 4 mg 01/19/25 21:32 01/19/25 21:56 Morphine 4mg/Ml Syringe IV 01/19/25 21:33 4 mg ONCE ONE Administration Ondansetron HCl 4 mg 01/19/25 21:32 01/19/25 21:56 Ondansetron 4mg/2ml Vial IV 01/19/25 21:33 4 mg ONCE ONE Administration Ondansetron HCl 4 mg 01/19/25 23:38 01/19/25 23:40 Ondansetron 4mg/2ml Vial IV 01/19/25 23:39 4 mg ONCE ONE Administration Promethazine HCl 25 mg 01/19/25 23:54 01/19/25 23:57 Promethazine Hcl 25mg/Ml 1ml Vial IV 01/19/25 23:55 25 mg ONCE ONE Administration Sodium Chloride 50 ml 01/19/25 22:18 01/19/25 22:19 0.9 % Sodium Chloride 50 Ml Vial IV 01/19/25 22:19 50 ml ONCE ONE Administration Sodium Chloride 25 ml 01/19/25 23:54 Sodium Chloride 0.9% 25ml Bag IV 01/19/25 23:55 ONCE ONE ORDERS Category Date Time Status CT angio chest PE protocol Stat Cat Scan 01/19/25 21:[address] chest w con Stat Cat Scan 01/19/25 21:59 Completed POCUS Point of Care (ER Only) Stat Exams 01/19/25 23:02 Completed REMIGIO w/Reflex if Positive Stat Lab 01/19/25 21:45 Received Basic Metabolic Panel AMLAB Lab 01/20/25 06:00 Ordered Complete Blood Count Auto Diff AMLAB Lab 01/20/25 06:00 Ordered Complete Blood Count Auto Diff Stat Lab 01/19/25 21:45 Completed Comprehensive Metabolic Panel Stat Lab 01/19/25 21:45 Completed D-Dimer Stat Lab 01/19/25 21:45 Completed Lipase Stat Lab 01/19/25 21:45 Completed Rheumatoid Factor IGM Stat Lab 01/19/25 21:45 Received T4 (Thyroxine) Stat Lab 01/19/25 23:05 Completed TSH [Thyroid Stimulating Hormone] Stat Lab 01/19/25 23:05 Completed Trop I [Troponin I] Stat Lab 01/19/25 21:45 Completed Troponin I Q3H Lab 01/20/25 00:02 Completed Troponin I Q3H Lab 01/20/25 03:45 Ordered ECG Data Tracing #1: Attestation: I reviewed this ECG and interpreted as documented below: ECG Narrative: Normal sinus rhythm with sinus rhythm with a ventricular rate of [address] changes concerning for ischemia. Normal axis and interval ECG initial impression date: 01/19/25 ECG initial impression time: 21:33 MDM Narrative Medical Decision Narrative: In summary, this patient is a 29-year-old female presenting to the Emergency Department for evaluation of chest pain after EGD this evening. Differential diagnoses considered include but are not limited to esophageal perforation, esophagitis, Laura-Gonzales tear, ACS, PE, dysrhythmia, musculoskeletal chest pain. Ruling out the most morbid conditions drove assessment. It should be noted patient's history includes obesity, hypothyroidism, eosinophilic esophagitis which may or may not be at goal therapy. This complicates all aspects of care by increasing patient's risk for morbidity. I reviewed patient's past medical records and noted uncomplicated EGD with the food bolus discussed fully passing on its own spontaneously prior to any sort of retrieval attempt. The scope and suction devices were introduced, but the suction device was not used. I had interactive discussion with Dr. Sanchez confirming this. On exam, the patient is sitting upright in no acute distress. She has normal vitals on cardiac telemetry. Cardiopulmonary exam is reassuring with no adventitious sounds. EKG obtained is normal. Workup included CBC, CMP, troponin, lipase. We cannot get Gastrografin swallow plain films here in the ED at night, so I called and had an interactive discussion with radiology techs who advised they recommended ordering CT scan with contrast and given the patient oral Gastrografin just prior to scan. Given this, this was ordered. I have ordered the CT PE protocol so that the patient gets IV contrast as well to rule out PE or aortic pathology as a cause of the pain. She was given IV Pepcid, morphine, Zofran, and acetaminophen for symptomatic improvement. I independently interpreted CT scans prior to the radiologist read and noted no apparent extravasation of the Gastrografin. She does have a pericardial effusion, which does not enhance with contrast. Please see their read for final interpretation. Labs were obtained that demonstrated reassuring CBC with no significant leukocytosis or anemia, reassuring chemistry with negative initial troponin, normal TSH, normal T4.. On reassessment, patient had minimal improvement after administration of interventions above and complains of continued pain. I attempted to give GI cocktail, but she had vomiting after so I gave IV Phenergan. I performed bedside cardiac ultrasound which demonstrates pericardial effusion but no tamponade. Given the pericardial effusion with EGD, I did call to discuss the case with thoracic surgery at to make sure they do not feel that this could be related to an esophageal injury. They advised that with a pericardial effusion like this, they feel that it is in no way related to her EGD and likely was there prior to that. They do not feel that she likely has an esophageal perforation based on imaging. Given this, I feel the patient would benefit from admission here for further evaluation and management of chest pain in the setting of pericardial effusion. I had an interactive discussion with the hospitalist who admitted the patient in stable condition
[2025-01-19] MEDS: IOPAMIDOL-370 (76%);100ML BOTTLE 70 ML IV (22:22)
[2025-01-19 22:25] VITALS: PULSE 90; RESP 20; O2SAT 99
[2025-01-19 22:30] VITALS: BP 112/76; PULSE 85; RESP 14; O2SAT 98
[2025-01-19 23:00] VITALS: BP 104/69
[2025-01-19 23:41] LABS: T4 (Thyroxine) 6.8 ug/dl (5.53-11.0)
[2025-01-19] MEDS: BELLADONNA ALKALOIDS 60 ML ML PO (23:49)
[2025-01-19] MEDS: KETOROLAC 30MG/ML VIAL 15 MG IV (23:50)
[2025-01-19] MEDS: SODIUM CHLORIDE 0.9% 25ML BAG 25 ML IV (23:54)
[2025-01-19 23:55] LABS: Thyroid Stimulating Hormone 0.75 uIU/mL (0.465-4.68)
[2025-01-19] MEDS: PROMETHAZINE HCL 25MG/ML 1ML VIAL 25 MG IV (23:57)
[2025-01-20] VITALS: BP 96/56; PULSE 71; RESP 16; TEMP 36.9; O2SAT 97
--- NOTE | 2025-01-20 00:01 | PC.NURSE ---
2nd troponin drawn and sent Pt had episode of vomiting shortly after GI cocktail MD aware Pt medicated for nausea per new order. Hospitalist at bedside to discuss plans for admission
[2025-01-20 00:12] VITALS: BP 104/69; PULSE 85; RESP 20; TEMP 36.7; O2SAT 97
--- NOTE | 2025-01-20 00:19 | PC.NURSE ---
Report called to [facility] Pt transported to inpatient unit by EDT IV tylenol infusing at this time
[2025-01-20 00:35] LABS: Troponin I < 0.01 ng/ml (0.00-0.034)
[2025-01-20 00:39] LABS: Anti-Centromere B Antibodies ND; Anti-DNA (DS) Ab Qn ND; Anti-Jo-1 ND; Antichromatin Antibodies ND; Antiscleroderma-70 Antibodies ND; RNP Antibodies ND; Sjogren's Anti-SS-A ND; Sjogren's Anti-SS-B ND
--- NOTE | 2025-01-20 01:09 | P.HP_ITS ---
<Statement entered by Teodoro Carrasquillo MD - 01/21/25 23:30> Personally evaluated patient and agree with plan of care as outlined by the DIRECT MAIL MANAGER. History of Present Illness *Admission Date: 01/20/25 *Reason for visit:: Chest pain *History of present illness: This is a 29-year-old female with a past medical history of hypothyroidism with partial thyroidectomy on levothyroxine who presents to the emergency department with chest pain. She initially presented to the ER around 8:00 with a food bolus citing stuck steak in her throat. She went to the OR for EGD with surgery for removal of food bolus. She underwent that procedure successfully. She was found to have eosinophilic esophagitis. Shortly after procedure she developed midsternal chest pain and was told to present to the emergency department given the ongoing point complaints after procedure. She does endorse vomiting. Denies palpitations. Denies any hematemesis. Emergency department workup notable for pericardial effusion on chest imaging. Pericardial effusion measures 2.1 cm. No tamponade features noted. Vital signs stable. CT scan negative for PE. Given this new finding she will be observed overnight. Vital signs are stable. [facility] Disclaimer: The information contained in this section may have been updated after the patient was seen, as this information can be updated by other users. Medical History Dyspareunia depression History of hypothyroidism Vertigo Surgical History Hx of cholecystectomy History of appendectomy History of tonsillectomy and adenoidectomy History of thyroidectomy Family History Other No significant family history Social History Smoking Status: Never smoker alcohol intake: never substance use type: denies use current occupational status: other Travel in the last 8 weeks: None household members: spouse marital status: number of children: 1 service: No correction: No sexually active: Yes Have you lived/traveled outside US in past 30 days?: No Contact w/someone who lives/traveled outside US past 30 days?: No Exposure to someone with infectious disease in past 14 days?: No Do you have a fever (greater than 100.4 F or 38 C)?: No Have you tested positive for COVID-19: No Exposed to someone with COVID-19 in past 14 days?: No Do you have a sore throat?: No Do you have a cough?: No Do you have any weakness?: No Are you experiencing any nausea/vomitting?: No Do you have any diarrhea?: No Are you experiencing any unusual bleeding?: No Do you have any muscle aches/pain?: No Do you have any abdominal pain?: No Are you experiencing loss of taste or smell?: No Other Medical History Have you received the Flu Vaccine for this season: No Have you received the Pneumonia Vaccine: No Review of Systems Review of Systems Review of systems:: pertinent systems reviewed and negative unless documented below Review of systems (narrative): Negative except for HPI Meds Home Medications and Allergies Home Medications ?Medication ?Instructions ?Recorded ?Confirmed ?Type levonorgestrel (Mirena) 1 device intrauterine ONCE 06/04/24 01/20/25 History bupropion HCl 150 mg 24 hr tablet, 150 mg PO DAILY #30 tabs 12/16/24 01/20/25 Rx extended release pantoprazole 40 mg tablet,delayed 40 mg PO DAILY #90 tabs 01/19/25 01/20/25 Rx release (Protonix) levothyroxine 200 mcg tablet 200 mcg PO DAILY 01/20/25 01/20/25 History New Prescriptions to Start Prescriptions: Allergies Allergy/AdvReac Type Severity Reaction Status Date / Time No Known Allergies Allergy Verified 01/17/25 10:56 Exam Data for Last 24 hours Vital signs and Labs for Last 24 Hours: Temp Pulse Resp BP Pulse Ox O2 Del Method 98.0 F 85 20 104/69 L 98 Room Air 01/20/25 00:12 01/20/25 00:12 01/20/25 00:12 01/20/25 00:12 01/19/25 22:30 01/20/25 00:12 Laboratory Results - last 24 hr 01/19/25 21:45: WBC 6.8, RBC 3.92 L, Hgb 12.3, Hct 36.1 L, MCV 92.1, MCH 31.4 H, MCHC 34.1, RDW 14.0, Plt Count 232, MPV 10.2, Neut % (Auto) 59.4, Lymph % (Auto) 30.4, [place] % (Auto) 6.6, Eos % (Auto) 2.9, Baso % (Auto) 0.4, Neut # (Auto) 4.1, Lymph # (Auto) 2.1, [place] # (Auto) 0.5, Eos # (Auto) 0.2, Baso # (Auto) 0.0, D- Dimer 0.63 H, Sodium 138, Potassium 3.9, Chloride 103, Carbon Dioxide 27, Anion Gap 11.9, BUN 12, Creatinine 0.80, Estimated Creat Clear 155, Estimated GFR 84, Est GFR ( Amer) 102, Glucose 93, Calcium 8.7, Total Bilirubin 0.4, AST 33 D, ALT 21, Alkaline Phosphatase 65, Troponin I < 0.01, Total Protein 7.0, Albumin 3.8, Globulin 3.2, Albumin/Globulin Ratio 1.2, Lipase 77 01/19/25 23:05: TSH 0.75 D, Thyroxine (T4) 6.8 01/20/25 00:02: Troponin I < 0.01 I & O for Last 24 hours: Intake & Output 01/17/25 01/18/25 01/19/25 01/20/25 23:59 23:59 23:59 23:59 Weight 95.254 kg Constitutional Constitutional: no acute distress *Routine HEENT Exam Head: Present normocephalic Eye: Present EOMI and PERRL ENT: Present mucous membranes moist *Routine Neck Exam Neck: Present supple; Absent lymphadenopathy *Routine Respiratory Exam Respiratory: Present CTA bilaterally *Routine Cardiovascular Exam Cardiovascular: Present RRR *Routine Abdominal Exam Abdominal: Present soft and normoactive bowel sounds; Absent tenderness *Routine Rectal Exam Rectal:: deferred *Routine Genitalia Exam Genitalia:: deferred *Routine Extremities Exam Extremities: Absent cyanosis, clubbing or edema *Routine Skin Exam Skin: Present warm; Absent rash *Routine Neurological Exam Neurological: Present alert and oriented X3 Assessment and Plan *Assessment and plan (1) Pericardial effusion: Status: Acute Category: Medical Code(s): I31.39 - Other pericardial effusion (noninflammatory) (2) Nausea & vomiting: Status: Acute Category: Medical Code(s): R11.2 - Nausea with vomiting, unspecified (3) Chest pain: Status: Acute Category: Medical Code(s): R07.9 - Chest pain, unspecified (4) Eosinophilic esophagitis: Status: Acute Category: Medical Code(s): K20.0 - Eosinophilic esophagitis (5) Hypothyroidism: Status: Acute Qualifiers: Hypothyroidism type: acquired Qualified Code(s): E03.9 - Hypothyroidism, unspecified Category: Medical Code(s): E03.9 - Hypothyroidism, unspecified Plan #Pericardial effusion Noted on CT imaging. Developed mid sternal chest pain after EGD. No evidence of esophageal perforation No tamponade features noted. Vital signs are stable.. ? Autoimmune etiology. Patient has a history of Natalie's as well as eosinophilic esophagitis. Patient has also been complaining of increased hair loss, general body aches and muscle fatigue and tiredness over the last several weeks. Will order REMIGIO and rheumatoid factor testing, will need follow-up outpatient Continue scheduled high-dose Motrin Continue as needed narcotics #Nausea vomiting Likely secondary to sequela of events this evening. Will continue with antiemetics #Eosinophilic esophagitis Continue PPI #Hypothyroidism TSH within normal limits Continue home medication
[2025-01-20] MEDS: IBUPROFEN 800 MG TABLET PO (01:55)
[2025-01-20] MEDS: PANTOPRAZOLE 40MG VIAL 40 MG IV ×2 (01:55→09:09)
[2025-01-20 04:00] VITALS: BP 102/48; PULSE 60; PULSE 65; RESP 16; TEMP 36.7; O2SAT 93
[2025-01-20] MEDS: MORPHINE 2MG/ML SYRINGE 2 MG IV (04:03)
[2025-01-20 04:21] LABS: Troponin I < 0.01 ng/ml (0.00-0.034)
--- NOTE | 2025-01-20 05:39 | PC.NURSE ---
Pt. was admitted overnight for Pleural effusion. Pt. had choked on a piece of steak and it was stuck. Pt. went to the ED , than surgery for EDG, the obstruction was cleared and while Pt. was recovering in the PACU she developed chest pain. Pt. went back to ED for chest pain work up. Pt. had CT of chest and it was noted that she had a Pleural effusion. Pt. was sleepy when admitted to floor. No c/o chest pain or SOB when admitted to the floor.Pt. on room air tolerating well. Pt. slept for a couple of hours and awoke with chest pain. Pt. medicated for CP as per NOV. Pt's at bedside. Personal items and call carter in reach.
[2025-01-20 06:05] LABS: Basophils % 0.4 % (0.1-2.0); Eosinophils # 0.2 Kmm3 (0.0-0.4); Eosinophils % 2.2 % (0.1-12.0); Hematocrit 35.9 % (37.0-47.0); Hemoglobin 11.8 g/dL (12.2-16.2); Lymphocytes # 1.7 K/mm3 (0.7-4.5); Lymphocytes % 25.1 % (10-50); Mean Corpuscular HGB Conc 32.9 g/dL (31.8-35.4); Mean Corpuscular Hemoglobin 30.9 pg (27.0-31.2); Mean Platelet Volume 10.3 fl (7.4-10.4); Monocytes # 0.5 K/mm3 (0.1-1.0); Monocytes % 7.1 % (1.7-9.3); Neutrophils # 4.5 K/mm3 (1.8-7.8); Neutrophils % 64.9 % (37.0-80.0); Nucleated Red Blood Cells # 0 10^3/uL; Nucleated Red Blood Cells % 0 %; Platelet Count 231 K/mm3 (142-424); Red Blood Count 3.82 M/mm3 (4.20-5.40); Red Cell Distribution Width 14.2 % (11.5-17.5); Red Cell Distribution Width-SD 48.1 fL; White Blood Count 6.9 K/mm3 (4.8-10.8)
[2025-01-20 06:16] LABS: Chloride 107 mmol/L (98-107); Potassium 4.3 mmoL/L (3.5-5.1); Sodium 139 mmol/L (136-145)
[2025-01-20 06:19] LABS: Anion Gap 8.3 mEq/L (5-15); Blood Urea Nitrogen 11 mg/dl (7-17); Calcium 8.4 mg/dl (8.4-10.2); Carbon Dioxide 28 mmol/L (22.0-30.0); Creatinine Clearance Estimated 137 mL/min (50-200); Estimated Glomerular Filt Rate 74 ml/min (>60); GFR (African American) 89 ML/MIN (>60); Glucose 96 mg/dl (74-100)
--- NOTE | 2025-01-20 07:00 | CA_ITS ---
APPROVED REPORT EXAM: Comprehensive 2D, Doppler, and color-flow Echocardiogram Guidance And Control System Engineer: Magy Carter CRT Ht: 5 ft 2 in Wt: 210lbs BSA: 1.95 BP: 104/69 mmHg Indications: Pericardial Effusion on CT 2.2cm, Post-op EGD 01/19/25, Natalie's, CP 2D Dimensions LA Volume 31.10 mL LA Volume Index 15.60 mL/m2 (M/F) 16-34 M-Mode Dimensions RVDd 2.26 cm (0.9-2.6) LA Diam 3.08 cm (1.9-4.0) LVDd 4.77 cm (3.5-5.7) LVDs 2.86 cm (3.5-5.7) IVSd 0.80 cm (0.6-1.1) PWd 0.78 cm (0.6-1.1) EF (Teich) 70.70% FS 40.00% EDV (Teich) 106.00 mL TAPSE 2.68 (<1.7) ESV (Teich) 31.10 mL LV Diastology E Decel Time 200 (160-240 msec) E/A Ratio 2.15 MED A' 8.10 cm/s LAT A' 8.40 cm/s Aortic Valve AO Peak GR. 4.50 mmHg Mitral Valve MV A Velocity 35.0 (40-130 cm/s) E/A Ratio 2.15 Pulmonary Valve PV Peak Velocity 169.0 (50-150 cm/s) Tricuspid Valve TR P. Velocity 297.00 cm/s RAP Estimate 10.00 mmHg RVSP 45.20 mmHg Left Ventricle The left ventricle is normal size. The left ventricular systolic function is normal. The left ventricular ejection fraction is within the normal range. There is normal left ventricular wall thickness. There is normal LV segmental wall motion. The left ventricular diastolic function is normal. LVEF is 55%. Right Ventricle Right ventricle is mildly dilated. The right ventricular systolic function is normal. Atria The left atrium size is normal. The right atrium size is normal. There is no Doppler evidence of interatrial shunt. Aortic Valve The aortic valve opens well. There is no aortic valvular stenosis. No aortic regurgitation is present. Mitral Valve The mitral valve is normal in structure. No evidence of mitral valve stenosis. Trace mitral regurgitation. Tricuspid Valve Tricuspid valve is grossly normal in structure and function. Mild tricuspid regurgitation. RVSP 25-30 mmHg. Pulmonic Valve The pulmonary valve is normal in structure. Mild pulmonic regurgitation. Great Vessels The aortic root is normal in size. Pericardium There is a small sized, posterior pericardial effusion present. The largest pocket measures 0.7 cm in diastole. No echo indications of tamponade or evidence of chamber collapse. There is no pleural effusion. Other Information Study Quality: Fair Conclusion Normal biventricular systolic function. Mild RV dilation. Mild TR, mild PI. Small sized, posterior pericardial effusion present. The largest pocket measures 0.7 cm in diastole. No echo indications of tamponade or evidence of chamber collapse. Electronically signed by : Libby Layne MD 01/20/2025 12:00:35
[2025-01-20 08:00] VITALS: BP 98/56; PULSE 60; PULSE 63; RESP 19; TEMP 36.5; O2SAT 98
[2025-01-20] MEDS: COLCHICINE 0.6MG TABLET 1.2 MG PO (09:10)
--- NOTE | 2025-01-20 09:49 | EXP.CARD.CON ---
History of Present Illness History of Present Illness Consult date: 01/20/25 Requesting physician: Teodoro Carrasquillo Chief complaint: pericardial effusion Additional Medical History:: 1. Hypothyroidism since age 11 -80% partial thyroidectomy age 17 2. Eosinophilic esophagitis -EGD, 01/19/2025, attempted food bolus removal but it moved into the stomach prior to extraction 3. Pericardial effusion -recent increase in weakness/malaise with associated hair loss, 12/2024 History of present illness: 29 yo WF admitted from ER for incidental finding of pericardial effusion after unremarkable chest pain workup. Pt had undergone an EGD for attempted removal of food bolus earlier in the day and then complained of chest pain afterward so she was sent back to ER for further evaluation. CTA of chest was negative for PE but noted pericardial effusion of 2.1 cm without apparent tamponade physiology. She was admitted for further evaluation. Pt has long-standing hypothyroidism with previous TSH levels as high as 370 in 2022. Most recent TSH on 01/17/2025 was 50.7 and repeat on 01/19/2025 was 0.75. Pt has been complaining of 2 wks of decreased energy and hair loss. She attempted to see her bead wire insulator but they no longer work there and can't get in to see the new bead wire insulator until June. PCP has been monitoring and managing her thyroid dosing. [facility] Disclaimer: The information contained in this section may have been updated after the patient was seen, as this information can be updated by other users. Medical History Dyspareunia depression History of hypothyroidism Vertigo Surgical History Hx of cholecystectomy History of appendectomy History of tonsillectomy and adenoidectomy History of thyroidectomy Family History Other No significant family history Social History Smoking Status: Never smoker alcohol intake: never substance use type: denies use current occupational status: other Travel in the last 8 weeks: None household members: spouse marital status: number of children: 1 service: No [place] [facility] [place]: No sexually active: Yes Review of Systems Review of Systems Review of systems:: pertinent systems reviewed and negative unless documented below Constitutional Constitutional: Reports lethargy and Reports weakness *Cardiovascular Cardiovascular: Denies chest pain, Denies dyspnea and Denies leg edema *Respiratory Respiratory: Denies dyspnea *Neurologic Neurologic: Reports weakness Exam Data for Last 24 hours Vital signs and Labs for Last 24 Hours: Temp Pulse Resp BP Pulse Ox O2 Del Method 97.7 F 63 19 98/56 L 98 Room Air 01/20/25 08:00 01/20/25 08:00 01/20/25 08:00 01/20/25 08:00 01/20/25 08:00 01/20/25 08:10 Laboratory Results - last 24 hr 01/19/25 21:45: WBC 6.8, RBC 3.92 L, Hgb 12.3, Hct 36.1 L, MCV 92.1, MCH 31.4 H, MCHC 34.1, RDW 14.0, Plt Count 232, MPV 10.2, Neut % (Auto) 59.4, Lymph % (Auto) 30.4, [place] % (Auto) 6.6, Eos % (Auto) 2.9, Baso % (Auto) 0.4, Neut # (Auto) 4.1, Lymph # (Auto) 2.1, [place] # (Auto) 0.5, Eos # (Auto) 0.2, Baso # (Auto) 0.0, D-Dimer 0.63 H, Sodium 138, Potassium 3.9, Chloride 103, Carbon Dioxide 27, Anion Gap 11.9, BUN 12, Creatinine 0.80, Estimated Creat Clear 155, Estimated GFR 84, Est GFR ( Amer) 102, Glucose 93, Calcium 8.7, Total Bilirubin 0.4, AST 33 D, ALT 21, Alkaline Phosphatase 65, Troponin I < 0.01, Total Protein 7.0, Albumin 3.8, Globulin 3.2, Albumin/Globulin Ratio 1.2, Lipase 77 01/19/25 23:05: TSH 0.75 D, Thyroxine (T4) 6.8 01/20/25 00:02: Troponin I < 0.01 01/20/25 03:55: Troponin I < 0.01 01/20/25 05:38: WBC 6.9, RBC 3.82 L, Hgb 11.8 L, Hct 35.9 L, MCV 94.0, MCH 30.9, MCHC 32.9, RDW 14.2, Plt Count 231, MPV 10.3, Neut % (Auto) 64.9, Lymph % (Auto) 25.1, [place] % (Auto) 7.1, Eos % (Auto) 2.2, Baso % (Auto) 0.4, Neut # (Auto) 4.5, Lymph # (Auto) 1.7, [place] # (Auto) 0.5, Eos # (Auto) 0.2, Baso # (Auto) 0.0, Sodium 139, Potassium 4.3, Chloride 107, Carbon Dioxide 28, Anion Gap 8.3, BUN 11, Creatinine 0.90, Estimated Creat Clear 137, Estimated GFR 74, Est GFR ( Amer) 89, Glucose 96, Calcium 8.4 I & O for Last 24 hours: Intake & Output 01/17/25 01/18/25 01/19/25 01/20/25 11:59 11:59 11:59 11:59 Output Total 250 / 250 Balance -250 / -250 Weight 210 lb Constitutional Constitutional: no acute distress *Routine Respiratory Exam Respiratory: Present CTA bilaterally; Absent rales or wheezes *Routine Cardiovascular Exam Cardiovascular: Present RRR; Absent murmur, gallop or rubs *Routine Extremities Exam Extremities: Absent edema Meds Home Medications and Allergies Home Medications ?Medication ?Instructions ?Recorded ?Confirmed ?Type levonorgestrel (Mirena) 1 device intrauterine ONCE 06/04/24 01/20/25 History bupropion HCl 150 mg 24 hr tablet, 150 mg PO DAILY #30 tabs 12/16/24 01/20/25 Rx extended release pantoprazole 40 mg tablet,delayed 40 mg PO DAILY #90 tabs 01/19/25 01/20/25 Rx release (Protonix) colchicine 0.6 mg tablet (Colcrys) 0.6 mg PO DAILY 30 days #30 tabs 01/20/25 Rx levothyroxine 200 mcg tablet 200 mcg PO DAILY 01/20/25 01/20/25 History New Prescriptions to Start Prescriptions: colchicine [Colcrys] Teodoro Carrasquillo Allergies Allergy/AdvReac Type Severity Reaction Status Date / Time No Known Allergies Allergy Verified 01/17/25 10:56 Assessment and Plan *Assessment and plan (1) Pericardial effusion: Status: Acute Category: Medical Code(s): I31.39 - Other pericardial effusion (noninflammatory) (2) Eosinophilic esophagitis: Status: Acute Category: Medical Code(s): K20.0 - Eosinophilic esophagitis (3) Hypothyroidism: Status: Acute Qualifiers: Hypothyroidism type: acquired Qualified Code(s): E03.9 - Hypothyroidism, unspecified Category: Medical Code(s): E03.9 - Hypothyroidism, unspecified (4) Chest pain: Status: Acute Qualifiers: Chest pain type: other chest pain Qualified Code(s): R07.89 - Other chest pain Category: Medical Code(s): R07.9 - Chest pain, unspecified Plan 1. Chest pain -troponins normal -No PE by chest CTA -likely due to food stuck in esophagus or eosinophilic esophagitis 2. Pericardial effusion -low voltage on EKG -possibly viral with recent weakness/malaise -possibly related to hypothyroidism (wide fluctuation in TSH recently) -check echo 3. Eosinophilic esophagitis -on PPI therapy 4. Hypothyroidism -on replacement therapy 5. Obesity check echo further recommendations to follow Echo: Normal biventricular systolic function. Mild RV dilation. Mild TR, mild PI. Small sized, posterior pericardial effusion present. The largest pocket measures 0.7 cm in diastole. No echo indications of tamponade or evidence of chamber collapse. Pt started on colchicine for possible pericarditis. Pericardial effusion likely related to viral etiology. OK to discharge home with follow up in our office in 2 wks. Continue hypothyroidism treatment.
[2025-01-20 12:00] VITALS: BP 94/48; PULSE 50; PULSE 56; RESP 16; TEMP 36.6; O2SAT 99
[2025-01-20] MEDS: ACETAMINOPHEN 325MG TAB 650 MG PO (12:32)
--- NOTE | 2025-01-20 13:30 | EXP.DC.SUM ---
General Admission date:: 01/20/25 HPI HPI HPI: This is a 29-year-old female with a past medical history of hypothyroidism with partial thyroidectomy on levothyroxine who presents to the emergency department with chest pain. She initially presented to the ER around 8:00 with a food bolus citing stuck steak in her throat. She went to the OR for EGD with surgery for removal of food bolus. She underwent that procedure successfully. She was found to have eosinophilic esophagitis. Shortly after procedure she developed midsternal chest pain and was told to present to the emergency department given the ongoing point complaints after procedure. She does endorse vomiting. Denies palpitations. Denies any hematemesis. Emergency department workup notable for pericardial effusion on chest imaging. Pericardial effusion measures 2.1 cm. No tamponade features noted. Vital signs stable. CT scan negative for PE. Given this new finding she will be observed overnight. Vital signs are stable. Hospital Course Hospital Course Hospital Course: Julia Rodriguez is a 29-year-old female who presented to the ED after experiencing chest pain after EGD for foreign body removal from esophagus and was admitted for chest pain, newfound pericardial effusion. #Chest pain #Pericardial effusion #Hypothyroidism ? Troponins normal, EKG without acute ischemic changes. ? CTA chest showed pericardial effusion with thickness up to 2.1 cm. However, formal ECHO revealed mild pericardial effusion with largest pocket measuring 0.7 cm. No evidence of tamponade physiology. Vital signs stable. ? Of note, CTA chest did not suggest esophageal perforation after patient's EGD. Patient tolerating diet well without issues. ? Cardiology consulted, agreed with starting colchicine 0.6 mg daily. ? Of note, patient's TSH has been fluctuating up and down and currently 22.1, but normal yesterday. Free T4 low normal. Seems to be compliant. Continue levothyroxine 200 mcg daily, follow-up with PCP. ? Will follow-up with cardiology within 2 weeks. Discharged with colchicine 0.6 mg daily. #Anxiety/depression ? Continue home Wellbutrin 150 mg. #GERD ? Continue home Protonix 40 mg. Total time spent on discharge: 32 minutes on chart review, counseling, documentation, and direct care with patient. Exam Data for Last 24 hours Vital signs and Labs for Last 24 Hours: Temp Pulse Resp BP Pulse Ox O2 Del Method 98 F 56 L 16 94/48 L 99 Room Air 01/20/25 12:00 01/20/25 12:00 01/20/25 12:00 01/20/25 12:00 01/20/25 12:00 01/20/25 13:00 Laboratory Results - last 24 hr 01/19/25 21:45: WBC 6.8, RBC 3.92 L, Hgb 12.3, Hct 36.1 L, MCV 92.1, MCH 31.4 H, MCHC 34.1, RDW 14.0, Plt Count 232, MPV 10.2, Neut % (Auto) 59.4, Lymph % (Auto) 30.4, [place] % (Auto) 6.6, Eos % (Auto) 2.9, Baso % (Auto) 0.4, Neut # (Auto) 4.1, Lymph # (Auto) 2.1, [place] # (Auto) 0.5, Eos # (Auto) 0.2, Baso # (Auto) 0.0, D-Dimer 0.63 H, Sodium 138, Potassium 3.9, Chloride 103, Carbon Dioxide 27, Anion Gap 11.9, BUN 12, Creatinine 0.80, Estimated Creat Clear 155, Estimated GFR 84, Est GFR ( Amer) 102, Glucose 93, Calcium 8.7, Total Bilirubin 0.4, AST 33 D, ALT 21, Alkaline Phosphatase 65, Troponin I < 0.01, Total Protein 7.0, Albumin 3.8, Globulin 3.2, Albumin/Globulin Ratio 1.2, Lipase 77 01/19/25 23:05: TSH 0.75 D, Thyroxine (T4) 6.8 01/20/25 00:02: Troponin I < 0.01 01/20/25 03:55: Troponin I < 0.01 01/20/25 05:38: WBC 6.9, RBC 3.82 L, Hgb 11.8 L, Hct 35.9 L, MCV 94.0, MCH 30.9, MCHC 32.9, RDW 14.2, Plt Count 231, MPV 10.3, Neut % (Auto) 64.9, Lymph % (Auto) 25.1, [place] % (Auto) 7.1, Eos % (Auto) 2.2, Baso % (Auto) 0.4, Neut # (Auto) 4.5, Lymph # (Auto) 1.7, [place] # (Auto) 0.5, Eos # (Auto) 0.2, Baso # (Auto) 0.0, Sodium 139, Potassium 4.3, Chloride 107, Carbon Dioxide 28, Anion Gap 8.3, BUN 11, Creatinine 0.90, Estimated Creat Clear 137, Estimated GFR 74, Est GFR ( Amer) 89, Glucose 96, Calcium 8.4 Temp Pulse Resp BP Pulse Ox O2 Del Method 97.7 F 63 19 98/56 L 98 Room Air 01/20/25 08:00 01/20/25 08:00 01/20/25 08:00 01/20/25 08:00 01/20/25 08:00 01/20/25 08:10 Laboratory Results - last 24 hr 01/19/25 21:45: WBC 6.8, RBC 3.92 L, Hgb 12.3, Hct 36.1 L, MCV 92.1, MCH 31.4 H, MCHC 34.1, RDW 14.0, Plt Count 232, MPV 10.2, Neut % (Auto) 59.4, Lymph % (Auto) 30.4, [place] % (Auto) 6.6, Eos % (Auto) 2.9, Baso % (Auto) 0.4, Neut # (Auto) 4.1, Lymph # (Auto) 2.1, [place] # (Auto) 0.5, Eos # (Auto) 0.2, Baso # (Auto) 0.0, D-Dimer 0.63 H, Sodium 138, Potassium 3.9, Chloride 103, Carbon Dioxide 27, Anion Gap 11.9, BUN 12, Creatinine 0.80, Estimated Creat Clear 155, Estimated GFR 84, Est GFR ( Amer) 102, Glucose 93, Calcium 8.7, Total Bilirubin 0.4, AST 33 D, ALT 21, Alkaline Phosphatase 65, Troponin I < 0.01, Total Protein 7.0, Albumin 3.8, Globulin 3.2, Albumin/Globulin Ratio 1.2, Lipase 77 01/19/25 23:05: TSH 0.75 D, Thyroxine (T4) 6.8 01/20/25 00:02: Troponin I < 0.01 01/20/25 03:55: Troponin I < 0.01 01/20/25 05:38: WBC 6.9, RBC 3.82 L, Hgb 11.8 L, Hct 35.9 L, MCV 94.0, MCH 30.9, MCHC 32.9, RDW 14.2, Plt Count 231, MPV 10.3, Neut % (Auto) 64.9, Lymph % (Auto) 25.1, [place] % (Auto) 7.1, Eos % (Auto) 2.2, Baso % (Auto) 0.4, Neut # (Auto) 4.5, Lymph # (Auto) 1.7, [place] # (Auto) 0.5, Eos # (Auto) 0.2, Baso # (Auto) 0.0, Sodium 139, Potassium 4.3, Chloride 107, Carbon Dioxide 28, Anion Gap 8.3, BUN 11, Creatinine 0.90, Estimated Creat Clear 137, Estimated GFR 74, Est GFR ( Amer) 89, Glucose 96, Calcium 8.4 I & O for Last 24 hours: Intake & Output 01/17/25 01/18/25 01/19/25 01/20/25 23:59 23:59 23:59 23:59 Output Total 250 / 250 Balance -250 / -250 Weight 95.254 kg Intake & Output 01/17/25 01/18/25 01/19/25 01/20/25 11:59 11:59 11:59 11:59 Output Total 250 / 250 Balance -250 / -250 Weight 210 lb Constitutional Constitutional: no acute distress and obese *Routine Respiratory Exam Respiratory: Present CTA bilaterally; Absent rales or wheezes *Routine Cardiovascular Exam Cardiovascular: Present RRR; Absent murmur, gallop or rubs *Routine Extremities Exam Extremities: Absent edema Results Data Completed and Pending Labs on day of discharge: Labs from last 24 hours 01/20/25 01/20/25 01/20/25 05:38 03:55 00:02 WBC 6.9 RBC 3.82 L Hgb 11.8 L Hct 35.9 L MCV 94.0 MCH 30.9 MCHC 32.9 RDW 14.2 Plt Count 231 MPV 10.3 Neut % (Auto) 64.9 Lymph % (Auto) 25.1 [place] % (Auto) 7.1 Eos % (Auto) 2.2 Baso % (Auto) 0.4 Neut # (Auto) 4.5 Lymph # (Auto) 1.7 [place] # (Auto) 0.5 Eos # (Auto) 0.2 Baso # (Auto) 0.0 D-Dimer Sodium 139 Potassium 4.3 Chloride 107 Carbon Dioxide 28 Anion Gap 8.3 BUN 11 Creatinine 0.90 Estimated Creat Clear 137 Estimated GFR 74 Est GFR ( Amer) 89 Glucose 96 Calcium 8.4 Total Bilirubin AST ALT Alkaline Phosphatase Troponin I < 0.01 < 0.01 Total Protein Albumin Globulin Albumin/Globulin Ratio Lipase TSH Thyroxine (T4) 01/19/25 01/19/25 23:05 21:45 WBC 6.8 RBC 3.92 L Hgb 12.3 Hct 36.1 L MCV 92.1 MCH 31.4 H MCHC 34.1 RDW 14.0 Plt Count 232 MPV 10.2 Neut % (Auto) 59.4 Lymph % (Auto) 30.4 [place] % (Auto) 6.6 Eos % (Auto) 2.9 Baso % (Auto) 0.4 Neut # (Auto) 4.1 Lymph # (Auto) 2.1 [place] # (Auto) 0.5 Eos # (Auto) 0.2 Baso # (Auto) 0.0 D-Dimer 0.63 H Sodium 138 Potassium 3.9 Chloride 103 Carbon Dioxide 27 Anion Gap 11.9 BUN 12 Creatinine 0.80 Estimated Creat Clear 155 Estimated GFR 84 Est GFR ( Amer) 102 Glucose 93 Calcium 8.7 Total Bilirubin 0.4 AST 33 D ALT 21 Alkaline Phosphatase 65 Troponin I < 0.01 Total Protein 7.0 Albumin 3.8 Globulin 3.2 Albumin/Globulin Ratio 1.2 Lipase 77 TSH 0.75 D Thyroxine (T4) 6.8 DS: Diagnosis Discharge Diagnosis (1) Pericardial effusion: Status: Acute Code(s): I31.39 - Other pericardial effusion (noninflammatory) (2) Eosinophilic esophagitis: Status: Acute Code(s): K20.0 - Eosinophilic esophagitis (3) Hypothyroidism: Status: Acute Code(s): E03.9 - Hypothyroidism, unspecified Qualifiers: Hypothyroidism type: acquired Qualified Code(s): E03.9 - Hypothyroidism, unspecified (4) Chest pain: Status: Acute Code(s): R07.9 - Chest pain, unspecified Qualifiers: Chest pain type: other chest pain Qualified Code(s): R07.89 - Other chest pain Meds Home Medications and Allergies Home Medications ?Medication ?Instructions ?Recorded ?Confirmed ?Type levonorgestrel (Mirena) 1 device intrauterine ONCE 06/04/24 01/20/25 History bupropion HCl 150 mg 24 hr tablet, 150 mg PO DAILY #30 tabs 12/16/24 01/20/25 Rx extended release pantoprazole 40 mg tablet,delayed 40 mg PO DAILY #90 tabs 01/19/25 01/20/25 Rx release (Protonix) colchicine 0.6 mg tablet (Colcrys) 0.6 mg PO DAILY 30 days #30 tabs 01/20/25 Rx levothyroxine 200 mcg tablet 200 mcg PO DAILY 01/20/25 01/20/25 History New Prescriptions to Start Prescriptions: colchicine [Colcrys] Teodoro Carrasquillo Allergies Allergy/AdvReac Type Severity Reaction Status Date / Time No Known Allergies Allergy Verified 01/17/25 10:56 Discharge Plan Disposition Patient Disposition: Home, Self-Care Condition: Fair Follow up Plan Follow up with: Adilene Lepe APRN [Primary Care Provider] - 01/28/25 10:30 am Fantasma Duval PA [Physician Apparel Machinery Instructor] - 02/03/25 9:15 am Prescriptions/Medication Reconciliation: New colchicine [Colcrys] 0.6 mg Tablet 0.6 mg PO DAILY 30 Days Qty: 30 0RF Continued Mirena 21 mcg/24 hr (8 yrs) 52 mg intrauterine device 1 device intrauterine ONCE bupropion HCl 150 mg tablet extended release 24 hr 150 mg PO DAILY Qty: 30 0RF pantoprazole [Protonix] 40 mg tablet,delayed release (DR/EC) 40 mg PO DAILY Qty: 90 3RF levothyroxine 200 mcg tablet 200 mcg PO DAILY Problem Reconciliation Problems Reviewed?: Yes Patient Discharge Instructions Patient Instructions: DI for Atypical Chest Pain, DI for Chest Pain Print Language: Turkmen Providers Primary Care Provider: Adilene Lepe Admit Provider: Teodoro Carrasquillo Attending Provider: Teodoro Carrasquillo
[2025-01-20 14:39] LABS: Free T4 (Free Thyroxine) 0.78 ng/dl (0.78-2.19)
[2025-01-20 15:11] LABS: Erythrocyte Sedimentation Rate 18 mm/hr (0-20)
--- NOTE | 2025-01-21 10:56 | SW/DCPLANNER ---
Spoke with patient on the phone. Patient stated that she is doing well. Patient stated that she is aware of her upcoming appointments. Patient stated that she was able to get her new medicine picked up from clinic pharmacy. Patient stated that she has no concerns or questions at this time. Deedee Juan
[2025-01-21 12:12] LABS: Antinuclear Antibodies (ANA) Negative (Negative)
[2025-01-23 12:12] LABS: Rheumatoid Factor IGM < 7 U (<7)
== END 2025-01-20 14:57 | disposition home or self-care (01) ==
LOC: ER 21:45 → 2ND 01-20 00:07
PROVIDERS: Nurse Practitioner Acute Care; Admitting Provider Student in an Organized Health Care Education/Training Program; Emergency Provider Emergency Medicine; PCP Nurse Practitioner Family; Visit Provider Student in an Organized Health Care Education/Training Program
DX: R07.9 Chest pain, unspecified (principal); E03.9 Hypothyroidism, unspecified; Z79.899 Other long term (current) drug therapy; R11.2 Nausea with vomiting, unspecified; I31.39 Other pericardial effusion (noninflammatory); K21.9 Gastro-esophageal reflux disease without esophagitis; F41.8 Other specified anxiety disorders
CPT/HCPCS: 36415; 71260; 71275; 80048; 80053; 83690; 84436; 84439; 84443; 84484; 85025; 85378; 85651; 86038; 86140; 86431; 93005; 93306; 99291; G0378; J0131; J1885; J2270; J2405; J2550; Q9963; Q9967

== ENCOUNTER 2025-01-28 11:00 | Outpatient (CLI) | payer OTHER, SELFPAY ==
[2025-01-28 19:50] LABS: Free Thyroxine Index 3.1 ug/dL (5.93-13.13); T4 (Thyroxine) 9.2 ug/dl (5.53-11.0); Triiodothryronine (T3) Uptake 34 % (23.5-40.5)
== END 2025-01-28 23:59 | disposition home or self-care (01) ==
LOC: LAB.DROPOF 01-29 13:42
PROVIDERS: PCP Nurse Practitioner Family; Visit Provider Nurse Practitioner Family
DX: E03.9 Hypothyroidism, unspecified (principal)
CPT/HCPCS: 84436; 84443; 84479

== ENCOUNTER 2025-02-04 09:17 | Outpatient (CLI) | payer OTHER, SELFPAY ==
--- NOTE | 2025-02-04 09:30 | US_ITS ---
FINAL REPORT TECHNIQUE: Sonographic images of the thyroid gland were obtained in the longitudinal and transverse planes. CLINICAL HISTORY: unstable TSH COMPARISON: None FINDINGS: The right lobe measures 1.4 x 3.3 x 1.1 cm. Diffusely heterogeneous without discrete nodule. The left lobe has been resected. No abnormal soft tissue in the thyroidectomy bed. The isthmus measures 2 mm. This is normal. IMPRESSION: Left thyroidectomy. Heterogeneous right thyroid lobe which may be seen with thyroiditis. Reviewed, Interpreted and Dictated by Rebecca Moon MD Transcribed by Yue Rubin Authenticated and [facility]
== END 2025-02-04 23:59 | disposition home or self-care (01) ==
LOC: RAD 09:18
PROVIDERS: PCP Nurse Practitioner Family; Visit Provider Nurse Practitioner Family
DX: E03.9 Hypothyroidism, unspecified (principal)
CPT/HCPCS: 76536

== ENCOUNTER 2025-02-20 10:50 | Outpatient (CLI) | payer OTHER, SELFPAY ==
--- NOTE | 2025-02-20 11:15 | CA_ITS ---
APPROVED REPORT EXAM: Limited 2D and color flow Echocardiogram Filler Wiper: RT Glen(R) Ht: 5 ft 3 in Wt: 205lbs BSA: 1.95 BP: 103/72 mmHg Indications: recent echo 01/20/25 showed RV dilation, mild TR, elevated RVSP, pericardial effusion. Limited echo to reassess effusion and RV measurements. M-Mode Dimensions RVDd 2.40 cm (0.9-2.6) LVDd 4.36 cm (3.5-5.7) LVDs 3.22 cm (3.5-5.7) IVSd 0.72 cm (0.6-1.1) PWd 0.68 cm (0.6-1.1) EF (Teich) 51.50% FS 26.10% EDV (Teich) 85.80 mL ESV (Teich) 41.60 mL Tricuspid Valve TR P. Velocity 223.00 cm/s Other Information Study Quality: Fair Conclusion This is a limited TTE to evaluate for pericardial effusion. Limited windows were obtained. There is normal LV systolic function. The right ventricle appears normal in size and function. There is a moderate-sized, circumferential pericardial effusion present. The largest pocket measures 1.1 cm in diastole and is noted anteriorly and along the RV free wall. No clear evidence of chamber collapse (although the RV in this study appears slightly smaller than prior). The IVC is not well-visualized. No obvious echo indications of tamponade in the limited TTE. Compared to prior study from 01/20/2025, the pericardial effusion appears slightly enlarged. Clinical correlation is required. Serial TTE's are suggested. Electronically signed by : Libby Layne MD 02/21/2025 23:41:03
== END 2025-02-20 23:59 | disposition home or self-care (01) ==
LOC: RT 10:51
PROVIDERS: PCP Nurse Practitioner Family; Visit Provider Physician Assistant
DX: I31.39 Other pericardial effusion (noninflammatory) (principal); I07.1 Rheumatic tricuspid insufficiency; J98.4 Other disorders of lung; R93.1 Abnormal findings on diagnostic imaging of heart and coronary circulation
CPT/HCPCS: 93308

== ENCOUNTER 2025-03-07 09:02 | Outpatient (CLI) | payer OTHER, SELFPAY ==
--- NOTE | 2025-03-07 09:30 | US_ITS ---
PROCEDURE: US TRANSVAGINAL CLINICAL INDICATION: Painful intercourse and IUD placement check COMPARISON: No exams were available for comparison FINDINGS: Transvaginal sonographic images of the pelvis were obtained. UTERUS: 8.9cm x 5.9 cmx 5.0cm anteverted with a combined endometrial thickness of 4.7mm. There is an IUD within the uterine cavity in the correct position. LEFT OVARY: 2.6 cmx1.8x2.2cm with a volume of 5.5ml. There are multiple small peripheral follicles. RIGHT OVARY: 3.1cmx 2.5cmx2.7 cm with a volume of 10.8ml. There is a follicle in the right ovary that measures 2.2 cm x 2.1 cm x 2.1 cm. Both ovaries are seen and appear normal. Doppler flow to both ovaries are seen. There is no fluid in the cul-de-sac. IMPRESSION: 1. Anteverted uterus normal in shape and size. The endometrium appears thin. 2. There is an IUD within the uterine cavity in the correct position. 3. Both ovaries are seen and appear normal. The right ovary has a follicle measuring 2.2 cm. 4. No fluid in the cul-de-sac. Dictated by: Rey Yee MD 03/07/2025 18:04 Rey Yee MD in OV 03/07/2025 18:04
== END 2025-03-07 23:59 | disposition home or self-care (01) ==
LOC: RAD 09:03
PROVIDERS: PCP Nurse Practitioner Family; Visit Provider Nurse Practitioner Obstetrics & Gynecology
DX: N83.01 Follicular cyst of right ovary (principal); N94.10 Unspecified dyspareunia; Z30.431 Encounter for routine checking of intrauterine contraceptive device
CPT/HCPCS: 76830

== ENCOUNTER 2025-03-14 17:08 | Emergency (ER) | payer OTHER, SELFPAY ==
[2025-03-14 17:11] VITALS: BP 117/81; PULSE 73; RESP 17; TEMP 36.8; O2SAT 99; BMI 37.2
--- NOTE | 2025-03-14 17:12 | ECG_ITS ---
APPROVED REPORT Exam: Resting ECG HR:69 bpm ECG Measurements Heart Rate 69 AXES WA 152 P 63 QRSd 91 QRS 93 QT 377 T 64 QTc 397 Conclusion SINUS RHYTHM BORDERLINE RIGHT AXIS DEVIATION [QRS AXIS > 90] LOW QRS VOLTAGE IN PRECORDIAL LEADS [QRS DEFLECTION < 1.0 mV IN CHEST LEADS] MINIMAL ST DEPRESSION [0.025+ mV ST DEPRESSION] Electronically signed by : ALISSA DEUTSCH, 03/14/2025 23:28:49
--- NOTE | 2025-03-14 17:23 | ED_ITS ---
Discharge Plan Disposition Patient Disposition: Home, Self-Care Condition: Good Prescriptions Prescriptions: New naproxen 250 mg tablet 250 mg PO BID PRN (Reason: pain) 7 Days Qty: 14 0RF doxycycline hyclate 100 mg capsule 100 mg PO BID 5 Days Qty: 10 0RF No Action Mirena 21 mcg/24 hr (8 yrs) 52 mg intrauterine device 1 device intrauterine ONCE levothyroxine 50 mcg tablet 50 mcg PO DAILY Qty: 30 2RF bupropion HCl 150 mg tablet extended release 24 hr 150 mg PO DAILY Qty: 30 0RF colchicine [Colcrys] 0.6 mg tablet 0.6 mg PO DAILY 30 Days Qty: 30 3RF pantoprazole [Protonix] 40 mg tablet,delayed release (DR/EC) 40 mg PO DAILY Qty: 90 3RF levothyroxine 200 mcg tablet 200 mcg PO DAILY Referrals Follow up/Referrals: Provider,Referral, MD [Referring, Medical] - See instructions Activity Restrictions/Add. Instructions Additional Instructions/Restrictions: As we discussed, your chest x-ray and my [id number] ultrasound were concerning for infectious changes in your right lung. Given these findings, your symptoms are concerning to me for a pneumonia of your right lung. Your thyroid labs are highly abnormal and I strongly recommend you follow-up with your primary care doctor to discuss further management of your hypothyroidism. Please return with any new or worsening symptoms. Clinical Impressions Clinical Impression: CAP (community acquired pneumonia) Print Language Print Language: Upper Sorbian Discharge ED Provider: Bobby Ovalle Adult HPI General Chief complaint: Chest Pain Stated complaint: CP Time Seen by Provider: 03/14/25 17:21 Mode of Arrival: Ambulatory Source of Information: Patient Description of Symptoms (Recalled from ER Triage Doc. by RN): Patient presents to ED from home with c/o right sided stabbing chest pain that started yesterday. Reports worsening of pain with inspiration. Notes she is currently being seen by Cardiology for fluid around my heart . History of Present Illness HPI narrative: The patient presents to the Emergency Department with chest pain in the right upper chest. The patient has a history of pericardial effusion and is currently under the care of a club director. The chest pain began yesterday, initially described as achy. The pain has progressively worsened since this morning. The patient characterizes the current pain as sharp and stabbing, localized to the right upper chest area. The pain radiates through to the patient's back. The patient notes that this pain is different from previous episodes related to their pericardial effusion. The patient's medical history includes a recent hospitalization for pericardial effusion, which was discovered following a surgical procedure to remove food stuck in their throat. During that procedure, the patient suffered some esophageal injury. The patient woke up from surgery with chest pain, leading to further testing that revealed fluid around the heart. Since then, the patient has been under the care of a club director. The patient reports a history of thyroid issues, with fluctuating thyroid levels that may be related to their cardiac symptoms. They also mention a previous diagnosis of tricuspid valve regurgitation in 2016 or 2017, which was not actively treated beyond acid reflux medication. The patient denies any recent viral illnesses, cough, or shortness of breath. They report some leg achiness but attribute this to caring for their three young children. The patient mentions feeling better after the initial hospitalization, with only occasional minor pains, but today's pain is notably worse. No specific aggravating or alleviating factors for the current chest pain were identified. The patient denies any abdominal pain associated with the chest discomfort. The patient's medical history includes pericardial effusion, thyroid abnormalities with fluctuating thyroid numbers, and tricuspid valve regurgitation. Their surgical history includes an esophageal procedure for food stuck in throat, resulting in esophageal injury and postoperative chest pain. Current medications include thyroid medication and anti-inflammatory medication (possibly ibuprofen or naproxen). The patient has three young children and reports staying nervous. The review of systems is positive for leg aches and chest pain, and negative for leg swelling, shortness of breath, cough, and abdominal pain. Please note that above description of symptoms, in this electronic medical record under categorization of recalled from ER triage doctor by RN are reflective of an initial nursing assessment, however, is not reflective of my full history and physical exam that was personally taken and clarified. Consequentially, this preceding description of symptoms, which may include the patient's categorized chief complaint in the EMR, do not reflect my personal clinical impression, and the ultimate description of history of present illness and patient stated complaints should be deferred to this section of the note. Unless stated otherwise or congruent with this section of the note, additional signs, symptoms, or incongruence should be interpreted as inaccurate with my clinical impression. Related Data Home Medications ?Medication ?Instructions ?Recorded ?Confirmed levonorgestrel (Mirena) 1 device intrauterine ONCE 0 06/04/24 03/04/25 levothyroxine 200 mcg tablet 200 mcg PO DAILY 01/20/25 03/04/25 Previous Rx's ?Medication ?Instructions ?Recorded pantoprazole 40 mg tablet,delayed 40 mg PO DAILY #90 t abs 01/19/25 release (Protonix) levothyroxine 50 mcg tablet 50 mcg PO DAILY #30 tabs 0 02/04/25 bupropion HCl 150 mg 24 hr tablet, 150 mg PO DAILY #30 tabs 03/05/25 extended release colchicine 0.6 mg tablet (Colcrys) 0.6 mg PO DAILY 30 days #30 tabs 03/06/25 doxycycline hyclate 100 mg capsule 100 mg PO BID 5 day s #10 caps 03/14/25 naproxen 250 mg tablet 250 mg PO BID PRN pain 1 wee k #14 03/14/25 tabs Allergies Allergy/AdvReac Type Severity Reaction Status Date / Time No Known Allergies Allergy Verified 03/04/25 15:15 [facility] Disclaimer: The information contained in this section may have been updated after the patient was seen, as this information can be updated by other users. Medical History Pulmonary insufficiency Tricuspid regurgitation Eosinophilic esophagitis Pericardial effusion Dyspareunia depression History of hypothyroidism Vertigo Surgical History Hx of cholecystectomy History of appendectomy History of tonsillectomy and adenoidectomy History of thyroidectomy Family History Other No significant family history Social History Smoking Status: Never smoker alcohol intake: never substance use type: denies use current occupational status: other Travel in the last 8 weeks?: None household members: spouse marital status: number of children: 1 service: No retirement: No sexually active: Yes Have you lived/traveled outside [place] in past 30 days?: No Contact w/someone who lives/traveled outside [place] past 30 days?: No Exposure to someone with infectious disease in past 14 days?: No Do you have a fever (greater than 100.4 F or 38 C)?: No Have you tested positive for COVID-19?: No Exposed to someone with COVID-19 in past 14 days?: No Do you have a sore throat?: No Do you have a cough?: No Do you have any weakness?: No Do you have any diarrhea?: No Are you experiencing any unusual bleeding?: No Do you have any muscle aches/pain?: No Do you have any abdominal pain?: No Are you experiencing loss of taste or smell?: No Other Medical History Have you received the Flu Vaccine for this season: No Have you received the Pneumonia Vaccine: No ROS Obtained: Yes other As per HPI Physical Exam General General appearance: alert and in no apparent distress Head Head exam: atraumatic and normocephalic Eye Eye exam: Present normal appearance Neck Neck exam: Present normal inspection Chest Chest inspection: Present normal inspection and symmetric chest wall rise Respiratory Respiratory exam: Present normal lung sounds bilaterally; Absent respiratory distress Cardiovascular Cardiovascular exam: Present regular rate and normal rhythm Abdominal Exam Abdominal exam: Present soft Neurological Exam Neurological exam: Present alert and oriented X3 Psychiatric Psychiatric exam: Present normal affect and normal mood Skin Skin exam: Present warm and dry Medical Decision Making Medical Records Medical records reviewed: Yes I reviewed the patient's medical records. Screening: Per USPSTF and CDC recommendations, given the prevalence of disease in our region, it is our hospital?s policy to screen for HIV and viral Hepatitis for all patients aged 18 and over and those with ongoing risk factors. Dougie Inquiry Pt receiving controlled substance: No Vital Signs: 03/14/25 17:11 03/14/25 19:28 Temperature 98.2 F 98.1 F Temperature Source Oral Pulse Rate 64 Pulse Rate [Right Brachial] 73 Respiratory Rate 17 13 Blood Pressure 118/61 Blood Pressure [Right Arm] 117/81 Blood Pressure Mean [Right Arm] 93 Blood Pressure Source [Right Arm] Automatic Cuff Blood Pressure Position [Right Arm] Sitting 02 Sat by Pulse Oximetry 99 Oxygen Delivery Method Room Air Room Air Lab Data Lab Results 03/14/25 17:15: WBC 7.5, RBC 4.65, Hgb 14.4, Hct 42.6, MCV 91.6, MCH 31.0, MCHC 33.8, RDW 14.2, Plt Count 266, MPV 10.1, Neut % (Auto) 51.0, Lymph % (Auto) 37.8, [place] % (Auto) 4.3, Eos % (Auto) 6.1, Baso % (Auto) 0.5, Neut # (Auto) 3.8, Lymph # (Auto) 2.8, [place] # (Auto) 0.3, Eos # (Auto) 0.5 H, Baso # (Auto) 0.0, ESR 6, D-Dimer < 0.25, Sodium 135 L, Potassium 3.8, Chloride 102, Carbon Dioxide 30, Anion Gap 6.8, BUN 10, Creatinine 1.10 H, Estimated Creat Clear 112, E stimated GFR 58 L, Est GFR ( Amer) 71, Glucose 110 H, Calcium 10.5 H, Total Bilirubin 0.4, AST 32, ALT 19, Alkaline Phosphatase 59, Troponin I < 0.01, C-Reactive Protein 3.3, Total Protein 7.6, Albumin 4.4, Globulin 3.2, Albumin/Globulin Ratio 1.4, Lipase 102, TSH > 100.00 H, Free T4 < 0.07 L, Serum HCG, Qual Negative 03/14/25 17:15 03/14/25 17:15 Orders (Tests/Meds): ORDERS Category Date Time Status POCUS Point of Care (ER Only) Stat Exams 03/14/25 17:28 Taken XR chest portable Stat Exams 03/14/25 17:32 Completed CRP [C-Reactive Protein] Stat Lab 03/14/25 17:15 Completed Complete Blood Count Auto Diff Stat Lab 03/14/25 17:15 Completed Comprehensive Metabolic Panel Stat Lab 03/14/25 17:15 Completed D-Dimer Stat Lab 03/14/25 17:15 Completed ESR [Erythrocyte Sedimentation Rate] Stat Lab 03/14/25 17:15 Completed Free T4 (Free Thyroxine) Stat Lab 03/14/25 17:15 Completed HCG Qualitative, Serum Stat Lab 03/14/25 17:15 Completed Lipase Stat Lab 03/14/25 17:15 Completed TSH [Thyroid Stimulating Hormone] Stat Lab 03/14/25 17:15 Completed Troponin I Stat Lab 03/14/25 17:15 Completed Medical Decision Narrative: Patient with history and exam per above presenting for evaluation of right- sided chest pain referred pain, Diagnoses considered includer pneumonia,pulmonary embolism referred pain, ACS, hypothyroidism, among others ED workup and treatment included: ORDERS Category Date Time Status POCUS Point of Care (ER Only) Stat Exams 03/14/25 17:28 Taken XR chest portable Stat Exams 03/14/25 17:32 Completed CRP [C-Reactive Protein] Stat Lab 03/14/25 17:15 Completed Complete Blood Count Auto Diff Stat Lab 03/14/25 17:15 Completed Comprehensive Metabolic Panel Stat Lab 03/14/25 17:15 Completed D-Dimer Stat Lab 03/14/25 17:15 Completed ESR [Erythrocyte Sedimentation Rate] Stat Lab 03/14/25 17:15 Completed Free T4 (Free Thyroxine) Stat Lab 03/14/25 17:15 Completed HCG Qualitative, Serum Stat Lab 03/14/25 17:15 Completed Lipase Stat Lab 03/14/25 17:15 Completed TSH [Thyroid Stimulating Hormone] Stat Lab 03/14/25 17:15 Completed Troponin I Stat Lab 03/14/25 17:15 Completed Labs were independently interpreted by me, significant for free T4 undetectable low, no leukocytosis, creatinine at baseline Imaging was independently visualized and interpreted by me, significant for concern for consolidative process in right lower lobe. Please refer to radiology report for full details. Additionally, [id number] ultrasound was performed revealing mild to moderate pericardial effusion with no sonographic evidence of tamponade My clinical impression at this time is most consistent with Community-acquired pneumonia, regarding thyroid study abnormalities, patient is hemodynamically stable, mentating appropriately, after shared decision making elects to have further treatment of thyroid abnormalities on outpatient basis I discussed my clinical impression with patient and answered all questions. The patient was advised that persistent or worsening symptoms require further evaluation. Critical Care Critical Care Time Critical Care Time: No
--- NOTE | 2025-03-14 17:32 | XR_ITS ---
PROCEDURE INFORMATION: Exam: XR Chest Exam date and time: 03/14/2025 6:13 PM Age: 29 years old Clinical indication: Other: Chest pain TECHNIQUE: Imaging protocol: Radiologic exam of the chest. Views: 1 view. COMPARISON: No relevant prior studies available. FINDINGS: Lungs: Low lung volumes. Mild hazy right lower lung opacities. Pleural spaces: No pleural effusion. No pneumothorax. Heart/Mediastinum: No cardiomegaly. Bones/joints: Unremarkable. IMPRESSION: Mild hazy right lower lung opacities which may represent atelectasis, although aspiration/pneumonia can not be excluded in the acute setting.
[2025-03-14 17:45] LABS: Basophils % 0.5 % (0.1-2.0); Eosinophils # 0.5 Kmm3 (0.0-0.4); Eosinophils % 6.1 % (0.1-12.0); Hematocrit 42.6 % (37.0-47.0); Hemoglobin 14.4 g/dL (12.2-16.2); Immature Granulocytes # 0.02 10^3uL; Immature Granulocytes % 0.3 %; Lymphocytes # 2.8 K/mm3 (0.7-4.5); Lymphocytes % 37.8 % (10-50); Mean Corpuscular HGB Conc 33.8 g/dL (31.8-35.4); Mean Corpuscular Volume 91.6 fl (81-99); Mean Platelet Volume 10.1 fl (7.4-10.4); Monocytes # 0.3 K/mm3 (0.1-1.0); Monocytes % 4.3 % (1.7-9.3); Neutrophils # 3.8 K/mm3 (1.8-7.8); Nucleated Red Blood Cells # 0 10^3/uL; Nucleated Red Blood Cells % 0 %; Platelet Count 266 K/mm3 (142-424); Red Blood Count 4.65 M/mm3 (4.20-5.40); Red Cell Distribution Width 14.2 % (11.5-17.5); Red Cell Distribution Width-SD 47.8 fL; White Blood Count 7.5 K/mm3 (4.8-10.8)
[2025-03-14 17:48] LABS: Alanine Aminotransferase 19 U/L (12-78); Albumin Level 4.4 g/dl (3.5-5.0); Albumin/Globulin Ratio 1.4 (1.1-1.8); Alkaline Phosphatase 59 U/L (38-126); Anion Gap 6.8 mEq/L (5-15); Aspartate Amino Transferase 32 U/L (14-36); Bilirubin,Total 0.4 mg/dl (0.2-1.3); Blood Urea Nitrogen 10 mg/dl (7-17); Calcium 10.5 mg/dl (8.4-10.2); Carbon Dioxide 30 mmol/L (22.0-30.0); Chloride 102 mmol/L (98-107); Creatinine Clearance Estimated 112 mL/min (50-200); Estimated Glomerular Filt Rate 58 ml/min (>60); GFR (African American) 71 ML/MIN (>60); Globulin 3.2 g/dL (1.3-3.2); Glucose 110 mg/dl (74-100); Potassium 3.8 mmoL/L (3.5-5.1); Sodium 135 mmol/L (136-145); Total Protein,Serum 7.6 g/dl (6.3-8.2)
[2025-03-14 17:54] LABS: HCG Qualitative, Serum Negative (Negative)
[2025-03-14 17:56] LABS: Lipase 102 U/L (23-300)
[2025-03-14 18:02] LABS: C-Reactive Protein 3.3 mg/L (0-4); D-Dimer < 0.25 ug/mL (0.0-0.5)
[2025-03-14 18:07] LABS: Troponin I < 0.01 ng/ml (0.00-0.034)
[2025-03-14 18:16] LABS: Free T4 (Free Thyroxine) < 0.07 ng/dl (0.78-2.19)
[2025-03-14 18:28] LABS: Erythrocyte Sedimentation Rate 6 mm/hr (0-20)
[2025-03-14 18:40] LABS: Thyroid Stimulating Hormone > 100.00 uIU/mL (0.465-4.68)
[2025-03-14 19:28] VITALS: BP 118/61; PULSE 64; RESP 13; TEMP 36.7; O2SAT 98
== END 2025-03-14 19:36 | disposition home or self-care (01) ==
PROVIDERS: Emergency Provider Emergency Medicine; PCP Nurse Practitioner Family
DX: J18.9 Pneumonia, unspecified organism (principal); R07.89 Other chest pain; E03.9 Hypothyroidism, unspecified
CPT/HCPCS: 71045; 80053; 83690; 84439; 84443; 84484; 84703; 85025; 85378; 85651; 86140; 93005; 99285

== ENCOUNTER 2025-05-22 10:21 | Outpatient (CLI) | payer OTHER, SELFPAY ==
[2025-05-22 19:04] LABS: Free Thyroxine Index 2.8 ug/dL (5.93-13.13); T4 (Thyroxine) 9.2 ug/dl (5.53-11.0); Triiodothryronine (T3) Uptake 30 % (23.5-40.5)
[2025-05-22 19:18] LABS: Thyroid Stimulating Hormone 54.20 uIU/mL (0.465-4.68)
== END 2025-05-22 23:59 ==
LOC: LAB.DROPOF 05-26 10:22
PROVIDERS: PCP Nurse Practitioner Family; Visit Provider Nurse Practitioner Family
DX: E03.9 Hypothyroidism, unspecified (principal)
CPT/HCPCS: 84436; 84443; 84479